=== PATIENT | female | born 1970 | race Caucasian/White ===

== ENCOUNTER 2023-09-28 18:00 | Emergency (ER) | payer MEDICAID, SELFPAY ==
[2023-09-28 18:01] VITALS: BP 140/104; PULSE 59; RESP 18; TEMP 36.9; O2SAT 98; BMI 32.3
--- NOTE | 2023-09-28 18:17 | EXP.UTC ---
Discharge Plan Disposition Patient Disposition: Home, Self-Care Condition: Good Prescriptions Prescriptions: New azithromycin [Zithromax] 250 mg tablet 250 mg PO UD DOSE PK Qty: 6 0RF Rx Instructions: Take two (2) tablets today, then one (1) tablet days #2 thru #5 methylprednisolone 4 mg Tablets,Dose Pack 4 mg PO DIRECTED Qty: 21 0RF ondansetron 4 mg Tablet,Disintegrating 4 mg PO Q8H PRN (Reason: Nausea) Qty: 12 0RF Referrals Follow up/Referrals: Josh Conley MD [Primary Care Provider] - See instructions Activity Restrictions/Add. Instructions Additional Instructions/Restrictions: Drink plenty of fluids. Take tylenol or ibuprofen for pain or fever. Take the medications as directed. Follow up with your regular doctor. GO TO THE ER FOR ANY WORSENING SYMPTOMS Clinical Impressions Clinical Impression: Acute viral syndrome Stand Alone Forms Stand Alone Forms: Work/School Release Instructions Patient Instructions: DI for Viral Syndrome Discharge ED Provider: Donny Graf [facility] General Stated complaint: diarrhea, back pain, h/a Time Seen by Provider: 09/28/23 18:17 History of Present Illness Provider Complaint: She states that for the past 1 week she has had malaise, fatigue, body aches, and chills. She was checked by her pcp for strep, covid-19, and influenza. She states all 3 were negative. Related Data Previous Rx's Medication Instructions Recorded azithromycin 250 mg tablet 250 mg PO UD DOSE PK #6 tabs 09/28/23 (Zithromax) methylprednisolone 4 mg tablets in 4 mg PO DIRECTED #21 tabs 09/28/23 a dose pack ondansetron 4 mg disintegrating 4 mg PO Q8H PRN Nausea #12 tabs 09/28/23 tablet Allergies Allergy/AdvReac Type Severity Reaction Status Date / Time aspirin Allergy Severe Hives Verified 10/25/22 14:51 [facility] Disclaimer: The information contained in this section may have been updated after the patient was seen, as this information can be updated by other users. Social History Smoking Status: Never smoker alcohol intake: never current occupational status: employed Travel in the last 8 weeks: None ROS Obtained: Yes All systems reviewed & no additional complaints except as documented Constitutional Constitutional: Reports chills and Reports fever(s) Eyes Eyes: Denies eye discharge ENT Ears, Nose, Mouth, and Throat: Reports as per HPI Cardiovascular Cardiovascular: Denies chest pain Respiratory Respiratory: Denies chest congestion and Reports cough Gastrointestinal Gastrointestingal: Reports nausea; Denies abdominal pain, constipation, cramping, diarrhea or vomiting Musculoskeletal Musculoskeletal: Denies arthralgias Integumentary/Breasts Skin/Breast: Denies rash Neurologic Neurologic: Denies paresthesias Physical Exam General General appearance: alert and in no apparent distress Head Head exam: atraumatic, normocephalic and normal inspection Eye Eye exam: Present normal appearance, PERRL and EOMI ENT ENT exam: Present normal exam, normal oropharynx, mucous membranes moist, TM's normal bilaterally and normal external ear exam Neck Neck exam: Present normal inspection, full ROM and trachea midline; Absent meningismus or lymphadenopathy Chest Chest inspection: Present normal inspection and symmetric chest wall rise; Absent tenderness Respiratory Respiratory exam: Present normal lung sounds bilaterally; Absent respiratory distress Cardiovascular Cardiovascular exam: Present regular rate and normal rhythm; Absent JVD Abdominal Exam Abdominal exam: Present soft and normal bowel sounds; Absent distention, tenderness or guarding Extremities Exam Extremities exam: Present normal inspection, full ROM and normal capillary refill; Absent calf tenderness Back Exam Back exam: Present normal inspection; Absent tenderness Neurological Exam Neurological exam: Present alert and oriented X3 Psychiatric Psychiatric exam: Present norm
[2023-09-28 18:37] VITALS: BP 143/78; PULSE 59; RESP 18; TEMP 36.9; O2SAT 98
[2023-09-28 19:25] LABS: Adenovirus,PCR Not Detected (NotDetected); Coronavirus 19, PCR Not Detected (NotDetected); Coronavirus 229E Not Detected (NotDetected); Coronavirus NL63 Not Detected (NotDetected); Coronavirus OC43 Not Detected (NotDetected); Coronovirus HKU1,PCR Not Detected (NotDetected); Human Metapneumovirus Not Detected (NotDetected); Influenza A, PCR Not Detected (NotDetected); Influenza AH1, 2009 Not Detected (NotDetected); Influenza AH1, PCR Not Detected (NotDetected); Influenza AH3,PCR Not Detected (NotDetected); Influenza B, PCR Not Detected (NotDetected); Parainfluenza 1, PCR Not Detected (NotDetected); Parainfluenza 2, PCR Not Detected (NotDetected); Parainfluenza 3, PCR Not Detected (NotDetected); Parainfluenza 4, PCR Not Detected (NotDetected); Respiratory Syncytial Virus Not Detected (NotDetected); Rhinovirus/Enterovirus Not Detected (NotDetected)
== END 2023-09-28 18:44 | disposition home or self-care (01) ==
PROVIDERS: Emergency Provider Nurse Practitioner Family; PCP Family Medicine
DX: R19.7 Diarrhea, unspecified (principal); R51.9 Headache, unspecified; M54.9 Dorsalgia, unspecified; R53.81 Other malaise
CPT/HCPCS: 87632; 87635; 99212; 99214; G0463

== ENCOUNTER 2024-03-16 18:00 | Outpatient (CLI) | payer MEDICAID, SELFPAY ==
[2024-03-16 18:19] LABS: Basophils # 0.1 K/mm3 (0-0.2); Basophils % 0.9 % (0.1-2.0); Eosinophils # 0.1 K/mm3 (0.0-0.4); Eosinophils % 1.6 % (0.1-12.0); Hematocrit 41.1 % (37.0-47.0); Hemoglobin 13.1 g/dL (12.2-16.2); Lymphocytes # 2.5 K/mm3 (0.7-4.5); Lymphocytes % 43.7 % (10-50); Mean Corpuscular HGB Conc 31.9 g/dL (31.8-35.4); Mean Corpuscular Hemoglobin 31.7 pg (27.0-31.2); Mean Corpuscular Volume 99.3 fl (81-99); Mean Platelet Volume 8.4 fl (7.4-10.4); Monocytes # 0.3 K/mm3 (0.1-1.0); Monocytes % 5.8 % (1.7-9.3); Neutrophils # 2.7 K/mm3 (1.8-7.8); Neutrophils % 47.9 % (37.0-80.0); Platelet Count 299 K/mm3 (142-424); Red Blood Count 4.14 M/mm3 (4.20-5.40); Red Cell Distribution Width 13.7 % (11.5-17.5); White Blood Count 5.7 K/mm3 (4.8-10.8)
[2024-03-16 19:12] LABS: Alanine Aminotransferase 20 U/L (12-78); Albumin Level 4.2 g/dl (3.5-5.0); Albumin/Globulin Ratio 1.6 (1.1-1.8); Alkaline Phosphatase 112 U/L (38-126); Anion Gap 13.4 mEq/L (5-15); Aspartate Amino Transferase 38 U/L (14-36); Bilirubin,Total 0.7 mg/dl (0.2-1.3); Blood Urea Nitrogen 19 mg/dl (7-17); Calcium 9.6 mg/dl (8.4-10.2); Carbon Dioxide 28 mmol/L (22.0-30.0); Chloride 102 mmol/L (98-107); Estimated Glomerular Filt Rate 74 ml/min (>60); GFR (African American) 90 ML/MIN (>60); Globulin 2.6 g/dL (1.3-3.2); Glucose 100 mg/dl (74-100); Potassium 4.4 mmoL/L (3.5-5.1); Sodium 139 mmol/L (136-145); Total Protein,Serum 6.8 g/dl (6.3-8.2)
[2024-03-16 19:18] LABS: Hemoglobin A1C 5.4 % (4.0-6.0)
[2024-03-16 19:40] LABS: Thyroid Stimulating Hormone 0.64 uIU/mL (0.465-4.68)
== END 2024-03-16 23:59 | disposition home or self-care (01) ==
LOC: LAB.DROPOF 03-17 08:37
PROVIDERS: PCP Family Medicine; Visit Provider Family Medicine
DX: R07.9 Chest pain, unspecified (principal); I10 Essential (primary) hypertension; E66.9 Obesity, unspecified; Z68.35 Body mass index [BMI] 35.0-35.9, adult; F41.9 Anxiety disorder, unspecified
CPT/HCPCS: 80050; 80053; 83036; 84443; 85025

== ENCOUNTER 2024-03-25 11:15 | Outpatient (CLI) | payer MEDICAID, SELFPAY ==
--- NOTE | 2024-03-25 11:17 | XR_ITS ---
FINAL REPORT CLINICAL HISTORY: Right foot pain FINDINGS: RIGHT FOOT 3 views of the right foot were obtained. There is no acute fracture or dislocation. A small plantar spur is noted. Visualized joint spaces are normally aligned. Soft tissues are unremarkable. IMPRESSION: No acute bony abnormality. Reviewed, Interpreted and Dictated by Orlin Guerin MD Transcribed by Adrienne Ponce Authenticated and [facility]
--- NOTE | 2024-03-25 11:17 | XR_ITS ---
FINAL REPORT CLINICAL HISTORY: Left foot pain FINDINGS: LEFT FOOT Three views of the left foot demonstrate no acute fracture or dislocation. There is an orthopedic screw in the distal first metatarsal. There is a healed fracture deformity of the first metatarsal probably related to prior bunion surgery. There are mild to moderate degenerative changes of the first metatarsophalangeal joint. A small plantar calcaneal spur is noted. The soft tissues are unremarkable. IMPRESSION: Postoperative and degenerative changes with no acute bony abnormality. Reviewed, Interpreted and Dictated by Orlin Guerin MD Transcribed by Adrienne Ponce Authenticated and [facility]
[2024-03-25 11:47] LABS: Uric Acid 4.7 mg/dl (2.5-6.2)
[2024-03-25 11:52] LABS: C-Reactive Protein 1.7 mg/L (0-4)
[2024-03-25 12:00] LABS: Hemoglobin A1C 5.4 % (4.0-6.0)
[2024-03-25 12:18] LABS: Thyroid Stimulating Hormone 0.86 uIU/mL (0.465-4.68)
[2024-03-25 12:20] LABS: Erythrocyte Sedimentation Rate 14 mm/hr (0-30)
[2024-03-26 17:26] LABS: RA Latex Turbid. 11.2 IU/mL (<14.0)
[2024-03-27 16:34] LABS: Antinuclear Antibodies, IFA Negative (.)
== END 2024-03-25 23:59 | disposition home or self-care (01) ==
LOC: LAB 11:17
PROVIDERS: PCP Family Medicine; Visit Provider Family Medicine
DX: M79.671 Pain in right foot (principal); M79.672 Pain in left foot; M25.559 Pain in unspecified hip; R51.9 Headache, unspecified
CPT/HCPCS: 36415; 73630; 83036; 84443; 84550; 85651; 86038; 86140; 86431

== ENCOUNTER 2024-04-12 15:10 | Outpatient (CLI) | payer MEDICAID, SELFPAY ==
--- NOTE | 2024-04-12 15:13 | XR_ITS ---
FINAL REPORT CLINICAL HISTORY: Bilat hip pain FINDINGS: RIGHT HIP Two views of the right hip demonstrate no acute fracture or dislocation. The joint spaces appear normal. The visualized bony structures are well aligned. No soft tissue abnormality is seen. IMPRESSION: No acute bony abnormality. Reviewed, Interpreted and Dictated by Tanvir Andrade III, MD Transcribed by Mer Joseph Authenticated and [facility]
--- NOTE | 2024-04-12 15:13 | XR_ITS ---
FINAL REPORT CLINICAL HISTORY: Bilat hip pain FINDINGS: LEFT HIP 2 views of the left hip are obtained. There is no acute fracture or dislocation. Visualized joint spaces are normally aligned. There is no acute soft tissue abnormality. IMPRESSION: No acute bony abnormality. Reviewed, Interpreted and Dictated by Tanvir Andrade III, MD Transcribed by Mer Joseph Authenticated and [facility]
== END 2024-04-12 23:59 | disposition home or self-care (01) ==
LOC: RAD 15:12
PROVIDERS: PCP Family Medicine; Visit Provider Nurse Practitioner Family
DX: M25.551 Pain in right hip (principal); M25.552 Pain in left hip
CPT/HCPCS: 73502

== ENCOUNTER 2024-08-29 13:36 | Outpatient (CLI) | payer MEDICAID, SELFPAY ==
--- NOTE | 2024-08-29 13:42 | XR_ITS ---
PROCEDURE INFORMATION: Exam: XR Right Tibia and Fibula Exam date and time: 08/29/2024 2:07 PM Age: 54 years old Clinical indication: Condition or disease; Other: Follow up FX; Additional info: Right tib fib FX TECHNIQUE: Imaging protocol: Radiologic exam of the right tibia and fibula. Views: 2 views. COMPARISON: CR XR FOOT WT BEARING RT 3V 03/25/2024 12:23 PM FINDINGS: Bones/joints: Avulsion fracture off the distal aspect of the fibula is unhealed. Soft tissues: Normal. IMPRESSION: Avulsion fracture off the distal aspect of the fibula is unhealed.
== END 2024-08-29 23:59 | disposition home or self-care (01) ==
PROVIDERS: PCP Family Medicine; Visit Provider Nurse Practitioner
DX: M79.604 Pain in right leg (principal); S82.831A Other fracture of upper and lower end of right fibula, initial encounter for closed fracture
CPT/HCPCS: 73590; 93971

== ENCOUNTER 2024-09-19 13:09 | Outpatient (CLI) | payer MEDICAID, SELFPAY ==
--- NOTE | 2024-09-19 13:15 | XR_ITS ---
FINAL REPORT CLINICAL HISTORY: F/U RT ANKLE FX COMPARISON: None FINDINGS: RIGHT ANKLE 3 views of the right ankle were obtained. There is a subacute fracture inferior to the lateral malleolus without significant callus formation. Mild degenerative change is noted. There is lateral soft tissue swelling. Calcaneal spurs are present. IMPRESSION: Subacute fracture inferior to the lateral malleolus without significant callus formation. Reviewed, Interpreted and Dictated by Tanvir Andrade III, MD Transcribed by Katherine Barber Authenticated and [facility]
== END 2024-09-19 23:59 | disposition home or self-care (01) ==
PROVIDERS: PCP Family Medicine; Visit Provider Orthopaedic Surgery
DX: S82.831A Other fracture of upper and lower end of right fibula, initial encounter for closed fracture (principal)
CPT/HCPCS: 73610

== ENCOUNTER 2024-11-13 11:14 | Outpatient (CLI) | payer BC, MEDICAID, SELFPAY ==
--- NOTE | 2024-11-13 11:22 | XR_ITS ---
FINAL REPORT CLINICAL HISTORY: right ankle fx COMPARISON: 09/19/2024 FINDINGS: RIGHT ANKLE 3 views of the right ankle were obtained. There is an 8 mm well corticated ossific density inferior to the lateral malleolus. The mortise is intact. A small plantar spur is noted. Visualized joint spaces are normally aligned. Soft tissues are unremarkable. IMPRESSION: 8 mm density inferior to the lateral malleolus. Reviewed, Interpreted and Dictated by Orlin Guerin MD Transcribed by Katherine Barber Authenticated and [facility]
== END 2024-11-13 23:59 | disposition home or self-care (01) ==
LOC: RAD 11:18
PROVIDERS: PCP Family Medicine; Visit Provider Physician Assistant
DX: M25.571 Pain in right ankle and joints of right foot (principal); S82.831A Other fracture of upper and lower end of right fibula, initial encounter for closed fracture
CPT/HCPCS: 73610

== ENCOUNTER 2025-01-09 11:09 | Outpatient (CLI) | payer MEDICAID, SELFPAY ==
[2025-01-09 21:32] LABS: Basophils # 0.1 K/mm3 (0-0.2); Basophils % 0.7 % (0.1-2.0); Eosinophils # 0.1 K/mm3 (0.0-0.4); Eosinophils % 1.2 % (0.1-12.0); Hematocrit 41.3 % (37.0-47.0); Hemoglobin 13.2 g/dL (12.2-16.2); Lymphocytes # 2.5 K/mm3 (0.7-4.5); Lymphocytes % 32.4 % (10-50); Mean Corpuscular Hemoglobin 30.7 pg (27.0-31.2); Mean Platelet Volume 10.8 fl (7.4-10.4); Monocytes # 0.7 K/mm3 (0.1-1.0); Monocytes % 8.7 % (1.7-9.3); Neutrophils # 4.4 K/mm3 (1.8-7.8); Neutrophils % 56.6 % (37.0-80.0); Platelet Count 315 K/mm3 (142-424); Red Cell Distribution Width 13.8 % (11.5-17.5); White Blood Count 7.7 K/mm3 (4.8-10.8)
[2025-01-09 22:21] LABS: Creatinine,Urine Random 100 mg/dL (Not Estab.); Microalbumin < 6.000 mg/L (0-16.7)
[2025-01-09 23:00] LABS: Alanine Aminotransferase 23 U/L (12-78); Albumin Level 4.2 g/dl (3.5-5.0); Albumin/Globulin Ratio 1.8 (1.1-1.8); Alkaline Phosphatase 106 U/L (38-126); Aspartate Amino Transferase 44 U/L (14-36); Bilirubin,Total 1.4 mg/dl (0.2-1.3); Blood Urea Nitrogen 17 mg/dl (7-17); Calcium 9.4 mg/dl (8.4-10.2); Carbon Dioxide 28 mmol/L (22.0-30.0); Chloride 105 mmol/L (98-107); Cholesterol 216 mg/dl (140-200); Estimated Glomerular Filt Rate 74 ml/min (>60); GFR (African American) 90 ML/MIN (>60); Globulin 2.4 g/dL (1.3-3.2); Glucose 89 mg/dl (74-100); Sodium 137 mmol/L (136-145); Total Protein,Serum 6.6 g/dl (6.3-8.2); Triglycerides 110 mg/dl (30-150); VLDL Cholesterol 22 mg/dL (0-40)
[2025-01-09 23:05] LABS: Hemoglobin A1C 5.6 % (4.0-6.0)
[2025-01-09 23:22] LABS: 25-OH Vitamin D, Total 18.1 ng/mL (30-100)
[2025-01-09 23:30] LABS: Chol/HDL Ratio 1.9 (1-3.5); HDL Cholesterol 113 mg/dl (40-60)
[2025-01-10 00:01] LABS: Vitamin B12 < 159 pg/mL (239-931)
== END 2025-01-09 23:59 | disposition home or self-care (01) ==
LOC: LAB.DROPOF 01-10 12:35
PROVIDERS: PCP Nurse Practitioner; Visit Provider Nurse Practitioner
DX: I10 Essential (primary) hypertension (principal); E66.01 Morbid (severe) obesity due to excess calories; Z68.35 Body mass index [BMI] 35.0-35.9, adult; G47.33 Obstructive sleep apnea (adult) (pediatric)
CPT/HCPCS: 80053; 80061; 82043; 82306; 82570; 82607; 83036; 84443; 85025

== ENCOUNTER 2025-01-28 11:02 | Outpatient (POV) | payer MEDICAID, SELFPAY ==
--- NOTE | 2025-01-28 11:10 | EXP.PAIN.OV ---
HPI Data of Consult Patient: new to practice Consult date: 01/28/25 Requesting Physician: Patt Torres APRN Primary Care Provider: Josh Conley MD Consult Narrative History of present illness: Ms. Neri is a 54 year old female who presents today as a new patient. She is a referral from primary care in [place]. Today she rates her pain a 10 out of 10. Patient states she has pain all across her low back primarily going into her right hip. Patient does states she also has pain into her bilateral feet. Patient states that this really all started around 2012 unrelated to any specific injury or trauma. 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 Patient does describe it as a sharp sensation that is worse with increased activity or certain movements. She states that certain activities like twisting, lifting walking or prolonged sitting really aggravate her symptoms. Patient does frequently have to change positions due to the worsening pain. She states she cannot do activities of daily living such as cooking and cleaning. Patient states she feels like it locks in position and that she has trouble moving. She also makes mention that repetitive motion really seems to bother her. Patient has been seeing [facility] there in [place] and did get injections from podiatry Dr. Jacobson in her feet that did help. Patient states that she has done an epidural with [facility] but did not notice any improvement. Patient has tried physical therapy with no additional changes. She has also tried oral medications, heat and ice and topicals with no changes. Patient is interested in any help available to provide.Patient is prescribed Ambien from her PCP. Her Rivera has been reviewed and is appropriate. CC: Patt Torres APRN [facility] Disclaimer: The information contained in this section may have been updated after the patient was seen, as this information can be updated by other users. Medical History Closed fracture of right distal fibula Pain of right anterior lower extremity Afib Hypertension Bipolar 1 disorder Depression Anxiety PTSD (post-traumatic stress disorder) Surgical History Hx of repair of left rotator cuff History of bunionectomy Hx of hernia repair Hx of carpal tunnel repair Hx of total hysterectomy Hx of cholecystectomy Hx of appendectomy H/O gastric bypass Family History Other COPD (chronic obstructive pulmonary disease) Cancer Coronary artery disease Diabetes FHx: mental illness Heart attack Hypertension Thyroid disorder Social History (Updated 01/28/25 @ 11:32 by Annie Oconnor RN) Smoking Status: Never smoker alcohol intake: current alcohol intake frequency: holidays/special occasions only current occupational status: unemployed Travel in the last 8 weeks: None Review of Systems Review of Systems Review of systems:: pertinent systems reviewed and negative unless documented below Review of systems (narrative): Review of Systems: General: No recent weight changes, no fever, no sleep disturbances Respiratory: No cough, no shortness of air, no recurring pulmonary infections Cardiovascular/peripheral vascular: No chest pain, no palpitations, no edema, no shortness of breath Gastrointestinal: No new onset incontinence, normal bowel movements reported Genitourinary: No new onset incontinence Musculoskeletal:Low back pain, right hip pain, bilateral feet pain Psychiatric: [Normal mood/affect] Neurological: [Denies weakness in extremities], [denies balance issues] Meds Home Medications and Allergies Home Medications ?Medication ?Instructions ?Recorded ?Confirmed ?Type hydroxyzine HCl 50 mg tablet 50 mg PO HS PRN sleep #30 tabs 01/23/24 01/28/25 Rx cyclobenzaprine 10 mg tablet 10 mg PO Q12H PRN muscle spasm #60 02/27/24 01/28/25 Rx tabs aspirin 325 mg tablet,delayed 325 mg PO DAILY #30 tabs 07/16/24 01/28/25 Rx release bupropion HCl 150 mg tablet,12 hr 150 mg PO BID #180 ea 09/27/24 01/28/25 Rx sustained-release (Wellbutrin SR) fluticasone propionate 50 1 spray intranasal DAILY #16 grams 09/27/24 01/28/25 Rx mcg/actuation nasal spray,suspension (Flonase Allergy Relief) zolpidem 5 mg tablet 5 mg PO HS sleep #30 tabs 09/27/24 01/28/25 Rx acyclovir 400 mg tablet 400 mg PO BID #60 tabs 11/06/24 01/28/25 Rx cariprazine 1.5 mg capsule 1.5 mg PO DAILY #90 caps 01/09/25 01/28/25 Rx (Vraylar) topiramate 25 mg tablet 25 mg PO BID #60 tabs 01/09/25 01/28/25 Rx diltiazem HCl 120 mg capsule,24 120 mg PO DAILY #30 caps 01/23/25 01/28/25 Rx hr,extended release (Tiazac) metoprolol succinate 25 mg 25 mg PO DAILY HTN #30 tabs 01/23/25 01/28/25 Rx tablet,extended release 24 hr acyclovir 400 mg tablet 400 mg PO BID #60 tabs 01/25/25 01/28/25 Rx New Prescriptions to Start Prescriptions: Allergies Allergy/AdvReac Type Severity Reaction Status Date / Time NSAIDS (Non-Steroidal AdvReac Unknown Verified 01/09/25 09:42 Anti-Inflamma Objective Narrative: Physical Exam: General: Alert and oriented x3, no acute distress, pleasant and cooperative Lungs: Respirations even and unlabored, symmetrical chest expansion Eyes: PERRL Musculoskeletal: Flexion and extension of lumbar [spine] somewhat guarded secondary to pain, [antalgic gait noted] point tenderness along bilateral SIs with positive bilateral Maya's, Sima's, Gaenslen's, compression and distraction exam Neurological: Speech clear, no gross sensory deficit Assessment and Plan *Assessment and plan (1) Bilateral sacroiliitis: Status: Acute Category: Medical Code(s): M46.1 - Sacroiliitis, not elsewhere classified (2) Low back pain: Status: Acute Category: Medical Code(s): M54.50 - Low back pain, unspecified (3) Hip pain: Status: Acute Category: Medical Code(s): M25.559 - Pain in unspecified hip Plan Patient is experiencing worsening pain along the low back and bilateral hips. They did have limited range of motion of the lumbar spine along with point tenderness along bilateral SI joints and a positive bilateral Maya's, Sima's, Gaenslen's, compression and distraction exam. I did discuss with the patient that I do believe they would benefit from bilateral SI injections. Risk and benefits were discussed with the patient and they would like to proceed forward with this option. Patient has tried and failed conservative therapy including continued at home stretching exercise for longer than 12 weeks. Patient has had this pain present for longer than 3 months and has tried physical therapy and some injection therapy. Patient has not had any SI injections. I will also order the patient a compounded cream and send in a 2-week dose of tizanidine 2 mg twice daily as needed. Patient will be scheduled for bilateral SI injections under fluoroscopy. Patient has been instructed to contact the clinic with any concerns before the next appointment. Dr. Parekh has reviewed this note and agrees with this plan of care. This note was dictated using voice recognition software and make contain errors or omissions. All injections are used with Lidocaine or Bupivacaine and Depo Medrol.
[2025-01-28 11:31] VITALS: BP 139/90; PULSE 57; RESP 18; O2SAT 97; BMI 37.1
== END 2025-01-28 23:59 | disposition home or self-care (01) ==
PROVIDERS: PCP Family Medicine; Visit Provider Nurse Practitioner Family
DX: M46.1 Sacroiliitis, not elsewhere classified (principal); M54.50 Low back pain, unspecified; M25.551 Pain in right hip
CPT/HCPCS: 99202; G0463

== ENCOUNTER 2025-03-25 13:26 | Outpatient (CLI) | payer MEDICAID, SELFPAY ==
--- NOTE | 2025-03-25 | CA_ITS ---
APPROVED REPORT Exam: Exercise Treadmill Technologist: Kristina Montero Ht: 5 ft 6 in Wt: 231 lbs BSA: 2.13 m2 Medical History Medications: acyclovir, albuterol, aspirin, bacoflen, vraylar, vitamin D3, B-12, tiazac, topiramate, flonase, hydroxyzine hci, hyoscyamine sulfate, metoprolol succinate ER, zofran, tamsulosin, zolpidem Stress Test Details Test: Exercise stress testing was performed using a Russ protocol. HR Resting HR: 55 bpm Max Heart Rate (APMHR): 164 bpm Max HR Achieved: 120 bpm Target HR (85% APMHR): 139 bpm % of APMHR: 73 Recovery HR: 93 bpm HR response to stress: Blunted HR response to stress BP Resting BP: 135.0/88.0 mmHg Max BP: 150.0/90.0 mmHg Recovery BP: 135.0/90.0 mmHg BP response to stress: Normal blood pressure response to stress. ECG Resting ECG: NSR, ?old septal MD, PVC, NSSTW Abnormalities Stress ECG: No evidence of ischemia at the degree of HR achieved. Clinical Highest Stage Achieved: II Stress ECG Conclusion Symptoms: No chest pain. (+)SOA, hip pain Arrhythmias/Ectopy: PVC's ST-T Changes: No evidence of ischemia at the degree of HR achieved. Conclusion: This is a nondiagnostic stress test in the setting of inability achieve target HR. No evidence of ischemia at the degree of HR achieved. Evaluation with alternative modalities suggested, such as CCTA or pharmacological nuclear stress testing, if clinically feasible and indicated. Electronically signed by : Claudia Tsang MD 03/27/2025 13:19:00
--- NOTE | 2025-03-25 13:34 | XR_ITS ---
FINAL REPORT CLINICAL HISTORY: chest pain, SOBOE FINDINGS: 2 views of the chest were obtained . The heart is normal in size. The mediastinum is within normal limits. The lungs are clear. There is no pneumothorax. Osseous structures are unremarkable. IMPRESSION: No acute cardiopulmonary process. Reviewed, Interpreted and Dictated by Orlin Guerin MD Transcribed by Mer Joseph Authenticated and [facility]
--- NOTE | 2025-03-25 13:34 | XR_ITS ---
FINAL REPORT CLINICAL HISTORY: right flank pain, history kidney stone FINDINGS: SINGLE VIEW ABDOMEN A single view of the abdomen was obtained. There is a nonobstructive bowel gas pattern. There are no abnormally dilated loops of small bowel. No abnormal calcifications are identified. Surgical clips are seen in the right lower quadrant. Moderate stool is noted throughout the colon. IMPRESSION: Nonobstructive bowel gas pattern. Moderate stool. Reviewed, Interpreted and Dictated by Orlin Guerin MD Transcribed by Mer Joseph Authenticated and [facility]
--- NOTE | 2025-03-25 13:34 | XR_ITS ---
FINAL REPORT CLINICAL HISTORY: Left heel pain COMPARISON: 03/25/2024 FINDINGS: LEFT FOOT Three views show no evidence of acute displaced fracture or dislocation of the visualized bony architecture. The joint spaces appear normal. There is mild calcaneal spurring. There are postoperative changes from bunionectomy and osteotomy. IMPRESSION: No acute findings or significant change from prior exam. Reviewed, Interpreted and Dictated by Irving Zhu MD Transcribed by Randa Agee Authenticated and [facility]
[2025-03-25 15:10] LABS: Basophils # 0.1 K/mm3 (0-0.2); Basophils % 0.8 % (0.1-2.0); Eosinophils # 0.1 Kmm3 (0.0-0.4); Eosinophils % 1.8 % (0.1-12.0); Hematocrit 42.6 % (37.0-47.0); Hemoglobin 13.5 g/dL (12.2-16.2); Immature Granulocytes # 0.03 10^3uL; Immature Granulocytes % 0.5 %; Lymphocytes # 2.4 K/mm3 (0.7-4.5); Mean Corpuscular HGB Conc 31.7 g/dL (31.8-35.4); Mean Corpuscular Hemoglobin 29.3 pg (27.0-31.2); Mean Corpuscular Volume 92.4 fl (81-99); Mean Platelet Volume 10.7 fl (7.4-10.4); Monocytes # 0.5 K/mm3 (0.1-1.0); Monocytes % 7.3 % (1.7-9.3); Neutrophils # 3.5 K/mm3 (1.8-7.8); Neutrophils % 53.6 % (37.0-80.0); Nucleated Red Blood Cells # 0 10^3/uL; Nucleated Red Blood Cells % 0 %; Platelet Count 328 K/mm3 (142-424); Red Blood Count 4.61 M/mm3 (4.20-5.40); Red Cell Distribution Width 13.4 % (11.5-17.5); Red Cell Distribution Width-SD 45.8 fL; White Blood Count 6.6 K/mm3 (4.8-10.8)
[2025-03-25 15:57] LABS: Albumin Level 4.5 g/dl (3.5-5.0); Chloride 105 mmol/L (98-107); Sodium 138 mmol/L (136-145)
[2025-03-25 15:58] LABS: Potassium 4.4 mmoL/L (3.5-5.1)
[2025-03-25 16:00] LABS: Alanine Aminotransferase 20 U/L (12-78); Albumin/Globulin Ratio 1.8 (1.1-1.8); Alkaline Phosphatase 125 U/L (38-126); Anion Gap 11.4 mEq/L (5-15); Aspartate Amino Transferase 46 U/L (14-36); Bilirubin,Total 0.8 mg/dl (0.2-1.3); Blood Urea Nitrogen 15 mg/dl (7-17); Carbon Dioxide 26 mmol/L (22.0-30.0); Estimated Glomerular Filt Rate 65 ml/min (>60); GFR (African American) 78 ML/MIN (>60); Globulin 2.5 g/dL (1.3-3.2)
[2025-03-25 16:01] LABS: Calcium 9.7 mg/dl (8.4-10.2); Glucose 92 mg/dl (74-100)
[2025-03-25 16:13] LABS: Troponin I < 0.01 ng/ml (0.00-0.034)
== END 2025-03-25 23:59 | disposition home or self-care (01) ==
LOC: RT 13:31
PROVIDERS: PCP Nurse Practitioner; Visit Provider Nurse Practitioner
DX: R93.3 Abnormal findings on diagnostic imaging of other parts of digestive tract (principal); R07.9 Chest pain, unspecified; R06.02 Shortness of breath; R10.9 Unspecified abdominal pain; Z87.442 Personal history of urinary calculi; M79.672 Pain in left foot
CPT/HCPCS: 36415; 71046; 73630; 74018; 80053; 84484; 85025; 93017; 93018

== ENCOUNTER 2025-04-09 10:29 | Outpatient (POV) | payer MEDICAID, SELFPAY ==
--- NOTE | 2025-04-09 12:06 | EXP.PAIN.SOA ---
[facility] Disclaimer: The information contained in this section may have been updated after the patient was seen, as this information can be updated by other users. Medical History (Updated 04/04/25 @ 13:38 by Jacoby Estevez RN) Dizziness Abnormal ECG Edema Fatigue Equivocal stress test Chest pain Snoring SOBOE (shortness of breath on exertion) History of kidney stones Closed fracture of right distal fibula Pain of right anterior lower extremity Afib Hypertension Bipolar 1 disorder Depression Anxiety PTSD (post-traumatic stress disorder) Surgical History Hx of repair of left rotator cuff History of bunionectomy Hx of hernia repair Hx of carpal tunnel repair Hx of total hysterectomy Hx of cholecystectomy Hx of appendectomy H/O gastric bypass Family History Other COPD (chronic obstructive pulmonary disease) Cancer Coronary artery disease Diabetes FHx: mental illness Heart attack Hypertension Thyroid disorder Social History Smoking Status: Never smoker alcohol intake: current alcohol intake frequency: holidays/special occasions only current occupational status: unemployed Travel in the last 8 weeks?: None PM Subjective & Objective Subjective Subjective:: Patient is a pleasant 54-year-old female who presents today for worsening pain. She rates her pain today an 8 out of 10. Patient states she still has severe pain across her low back and into her bilateral hips that does seem to go into her groins. She denies any new trauma or injury. Patient states the pain is constant and is interfering with her ability perform activities of daily living such as cooking and cleaning. Patient is interested in injection therapy. Patient also makes mention that her previous muscle relaxers of baclofen just does not seem to be working. Her Rivera has been reviewed and is appropriate. Review of Systems: General: No recent weight changes, no fever, no sleep disturbances Respiratory: No cough, no shortness of air, no recurring pulmonary infections Cardiovascular/peripheral vascular: No chest pain, no palpitations, no edema, no shortness of breath Gastrointestinal: No new onset incontinence, normal bowel movements reported Genitourinary: No new onset incontinence Musculoskeletal: Low back pain, bilateral hip pain Psychiatric: [Normal mood/affect] Neurological: [Denies weakness in extremities], [denies balance issues] Pain at rest (0-10 scale): 8 Objective Objective:: Physical Exam: General: Alert and oriented x3, no acute distress, pleasant and cooperative Lungs: Respirations even and unlabored, symmetrical chest expansion Eyes: PERRL Musculoskeletal: Flexion and extension of lumbar [spine] somewhat guarded secondary to pain, [antalgic gait noted] point tenderness along bilateral SIs and extreme point tenderness along her bilateral greater trochanteric bursa with positive bilateral Maya's, Sima's, Gaenslen's, compression and distraction exam Neurological: Speech clear, no gross sensory deficit Has patient had previous pain injection?: No Conservative treatment options previously tried: Home exercise plan Length of treatment: Longer than 12 weeks Meds Home Medications and Allergies Home Medications ?Medication ?Instructions ?Recorded ?Confirmed ?Type metoprolol succinate 25 mg 25 mg PO DAILY HTN #30 tabs 01/23/25 04/04/25 Rx tablet,extended release 24 hr cariprazine 1.5 mg capsule 1.5 mg PO DAILY #90 caps 01/28/25 04/04/25 Rx (Vraylar) hydroxyzine HCl 50 mg tablet 50 mg PO HS PRN sleep #30 tabs 02/05/25 04/04/25 Rx ondansetron HCl 4 mg tablet 4 mg PO Q8H PRN nausea and 02/26/25 04/04/25 Rx vomiting #20 tabs zolpidem 5 mg tablet 5 mg PO HS sleep #30 tabs 03/19/25 04/04/25 Rx baclofen 5 mg tablet 5 mg PO TID #90 tabs 03/20/25 04/04/25 Rx hyoscyamine sulfate 0.125 mg tablet 0.125 mg PO QID PRN diarrhea or 03/25/25 04/04/25 Rx abdominal cramping #30 tabs acyclovir 400 mg tablet 400 mg PO BID #60 tabs 04/03/25 04/04/25 Rx albuterol sulfate 90 mcg/actuation 2 puff inhalation Q4-6H PRN 04/03/25 04/04/25 Rx aerosol inhaler shortness of breath or wheezing #8.5 grams cholecalciferol (vitamin D3) 125 125 mcg PO DAILY #30 tabs 04/03/25 04/04/25 Rx mcg (5,000 unit) tablet cyanocobalamin (vitamin B-12) 1,000 mcg PO DAILY #30 tabs 04/03/25 04/04/25 Rx 1,000 mcg tablet New Prescriptions to Start Prescriptions: Allergies Allergy/AdvReac Type Severity Reaction Status Date / Time NSAIDS (Non-Steroidal AdvReac Unknown Verified 04/04/25 13:08 Anti-Inflamma Assessment and Plan *Assessment and plan (1) Greater trochanteric bursitis of both hips: Status: Acute Category: Medical Code(s): M70.61 - Trochanteric bursitis, right hip; M70.62 - Trochanteric bursitis, left hip (2) Bilateral sacroiliitis: Status: Acute Category: Medical Code(s): M46.1 - Sacroiliitis, not elsewhere classified Plan Patient is experiencing continued pain in her low back and bilateral hips. Patient has had this chronic issue going on for longer than 1 year. Patient was previously seen in our office in January and was recommended for bilateral SI injections and does still seem appropriate for these however she did have more extreme point tenderness over her bilateral bursa's during today's visit. I have discussed with her that I do recommend starting with these injections as that does appear to be the most painful area currently. Risk and benefits were discussed with patient and she would like to proceed forward with this plan of care. Patient has continued conservative measures including oral medication, heat and ice, topicals, physical therapy and continued at home stretching exercise for longer than 12 weeks that was physician guided. Patient will be scheduled for bilateral greater trochanteric bursa injections under fluoroscopy. I will also send in a 2-week dose of methocarbamol 500 mg 3 times daily as needed. Patient has been instructed to contact the clinic with any concerns before the next appointment. Dr. Parekh has reviewed this note and agrees with this plan of care. This note was dictated using voice recognition software and make contain errors or omissions. All injections are used with Lidocaine, Bupivacaine and dexamethasone. Occasionally urine drug screen is needed to verify patient's compliance with our office pain contract. This is ordered based off specific treatments related to chronic pain with the potential to abuse certain medications.
[2025-04-09 12:18] VITALS: BP 129/85; PULSE 59; RESP 18; O2SAT 97; BMI 37.1
== END 2025-04-09 23:59 | disposition home or self-care (01) ==
PROVIDERS: PCP Family Medicine; Visit Provider Nurse Practitioner Family
DX: M70.61 Trochanteric bursitis, right hip (principal); M70.62 Trochanteric bursitis, left hip; M46.1 Sacroiliitis, not elsewhere classified; Z79.899 Other long term (current) drug therapy
CPT/HCPCS: 99212; G0463

== ENCOUNTER → 2025-04-11 07:42 | Outpatient (CLI) | payer MEDICAID, SELFPAY | LOC: SL 07:43 | PROVIDERS: PCP Nurse Practitioner; Visit Provider Nurse Practitioner | DX: G47.33 Obstructive sleep apnea (adult) (pediatric) (principal); G47.36 Sleep related hypoventilation in conditions classified elsewhere | CPT/HCPCS: G0399 ==

== ENCOUNTER 2025-04-16 07:13 | Outpatient (CLI) | payer MEDICAID, SELFPAY ==
--- NOTE | 2025-04-16 | CA_ITS ---
APPROVED REPORT Exam: Pharmacologic Technologist: eJssie Bro Ht: 5 ft 6 in Wt: 234 lbs BSA: 2.14 m2 HR: 62 bpm BP: 123/86 mmHg Rhythm: Sr Medical History Medical History: HTN Medications: Acyclovir, Albuterol, Baclofen, Cariprazine, Vit D3, Vit B12, Hydroxyzine HCl, Hyoscyamine sulfate, Metoprolol Succinate ER, Ondansetron HCl, Zolpidem Allergies: NSAIDS Cardiac Risk Factors: HTN, FHX of CAD Stress Test Details Test: Lexiscan HR Resting HR: 62 bpm Max Heart Rate (APMHR): 164.458671 bpm Target HR (85% APMHR): 139.728466 bpm Recovery HR: 85 bpm BP Resting BP: 123.0/86.0 mmHg Max BP: 138.0/91.0 mmHg Recovery BP: 138.0/91.0 mmHg ECG Resting ECG: Sr Stress ECG Conclusion Patient had shortness of breath Less than 1mm st depression Ekg unremarkable due to lexiscan infusion Electronically signed by : Claudia Tsang MD 04/16/2025 13:49:23
--- OUTSIDE RECORDS SUMMARY | 2025-04-16 07:16 | XMS_ITS | Encounter Summary ---
Author Organization Healthcare Address [address] [place] [address] Care Team Providers Care Fisheries Management Biologist Name Role Phone Bety Greene MD Primary Care Provider +1- [phone] Encounter Details Date Type Department Care Team (Latest Contact Info) Description 09/17/2021 [facility] [address] [place] [phone] Nilson Mejía MD [address] [place] [address] [place] [address] Nonintractable headache, unspecified chronicity pattern, unspecified headache type (Primary Dx) Social History Tobacco Use Types Packs/Day Years Used Date Smoking Tobacco: Never Alcohol Use Standard Drinks/Week Comments No 0 (1 standard drink = 0.6 oz pur e alcohol) Comments Unknown Sex and Gender Information Value Date Recorded Sex Assigned at Not on file Legal Sex Female 6:43 PM EDT Gender Identity Not on file Sexual Orientation Not on file documented as of this encounter Plan of Treatment Not on file documented as of this encounter Visit Diagnoses Diagnosis Nonintractable headache, unspecified chronicity pattern, unspecified headache type- Primary documented in this encounter Care Teams Fisheries Management Biologist Relationship Specialty Start Date End Date Bety Greene MD [address] [place] [address] PCP - General 03/20/21 documented as of this encounter
--- OUTSIDE RECORDS SUMMARY | 2025-04-16 07:16 | XMS_ITS | Encounter Summary ---
Author Organization [facility] Address [address] [place] [address] Care Team Providers Care Biological Technical Officer Name Role Phone Bety Greene MD Primary Care Provider +1- [phone] Reason for Referral * Consultation (Routine) - Authorized Specialty Diagnoses / Procedures Referred By Allison levin Referred To Contact Pain Medicine Diagnoses Lumbar radiculopathy Jasen Torres DO [address] [place] [address] [place] [address] Phone: tel: fax: [facility] Interventional Pain Medicine [address] [place] [phone] Phone: tel: fax: Referral ID Status Reason Start Date Expiration Date Visits Requested Visits Authorized [id number] Authorized Specialty Services Required 08/07/2024 02/06/2026 1 1 Encounter Details Date Type Department Care Team (Latest Contact Info) Description 08/07/2024 [facility] [address] [place] [address] Jasen Torres DO [address] [facility] [address] [place] [address] Lumbar radiculopathy (Primary Dx) Social History Tobacco Use Types [...] as of this encounter Plan of Treatment Scheduled Referrals Name Type Priority Associated Diagnoses Orde r Schedule Ambulatory referral to Interventional Pain Outpatient Referral Routine Lumbar radiculopathy Expected: 08/07/2024 (Approximate), Expires: 08/07/2025 documented as of this encounter Visit Diagnoses Diagnosis Lumbar radiculopathy- Primary Thoracic or lumbosacral neuritis or radiculitis, unspecified documented in this encounter Care Teams Biological Technical Officer Relationship Specialty Start Date End Date Bety Greene MD [address] [place] [address] PCP - General 03/20/21 documented as of this encounter
--- OUTSIDE RECORDS SUMMARY | 2025-04-16 07:16 | XMS_ITS | Encounter Summary ---
Author Organization Healthcare Address [address] [place] [id number] Care Team Providers Care Blockmason Name Role Phone Bety Greene MD Primary Care Provider +1- [phone] Encounter Details Date Type Department Care Team (Late st Contact Info) Description 08/31/2021 [facility] [address] [place] [address] Nilson Mejía MD [address] [place] [address] [place] [address] Positive OLIVA (antinuclear antibody) (Primary Dx) Social History Tobacco Use Types [...] as of this encounter Visit Diagnoses Diagnosis Positive OLIVA (antinuclear antibody)- Primary Other and unspecified nonspecific immunological findings documented in this encounter Care Teams Blockmason Relationship Specialty Start Date End Date Bety Greene MD [address] [place] [address] PCP - General 03/20/21 documented as of this encounter
--- OUTSIDE RECORDS SUMMARY | 2025-04-16 07:17 | XMS_ITS | Encounter Summary ---
Author Organization Healthcare Address [address] [id number] Care Team Providers Care Searchlight Operator Name Role Phone Bety Greene MD Primary Care Provider +1- [phone] Encounter Details Date Type Department Care Team (Late st Contact Info) Description 09/28/2024 [facility] [address] [place] [address] [place], CHILDCARE ATTENDANT [address] [place] [address] Social History Tobacco Use Types Packs/Day Years [...] documented as of this encounter Visit Diagnoses Not on filedocumented in this encounter Care Teams Searchlight Operator Relationship Specialty Start Date End Date Bety Greene MD [address] [place] [address] PCP - General 03/20/21 documented as of this encounter
--- OUTSIDE RECORDS SUMMARY | 2025-04-16 07:17 | XMS_ITS | Data Portability ---
Author Organization [place] - [place] - [facility]ST[facility] Address [address] [place] [address] Care Team Providers Care Property Management Assistant Name Role Phone JEFF MARTINEZ Referring Provider [phone] [address] Hand Quilter Assessment Encounter Date Assessment Date Assessment LastModified by Organization Details LastModified Time 07/19/2019 07/19/2019 First, it sounds like she is having PVCs. Upon questioning she does report snoring and excessive daytime fatigue and sleepiness. She tells me she had a normal sleep evaluation about a year ago. 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 I am not overly concerned about PVCs but we may want to entertain repeat sleep study. I will check a TSH now. Next, I am concerned for coronary ischemia. She will need an ischemic evaluation. I recommend a treadmill stress test but she tells me she cannot complete one. She is requesting a pharmacologic stress which I agree with. I will also get an echocardiogram. I will make sure she has a bottle of sublingual nitroglycerin. She should stay off of work until we can get her stress test done. Lastly, it sounds like she is having runs of SVT. I will place a 4-week event monitor. We went over Valsalva maneuvers. If her stress test comes back normal, there are several potential explanations including GI, musculoskeletal, or pulmonary. I would recommend GI evaluation next that she likely has esophageal strictures. RTC 3 months. [email or web address] Not available 07/19/2019 18:04:57 Plan of Treatment Reminders Order Date Submit Date Provider Last Modified By Organization Details Last Modified Time Details Appointments None recorded. Lab TSH, serum or plasma 2018 [facility] [place], [address], [address], [place], [address], 9 01:35:20 Referral None recorded. Procedures None recorded. Surgeries None recorded. Imaging pharmacolo gic stress test 2018 [email or web address] Not available 09:12:54 event monitor 2018 K[facility]ANG Not available 15:33:04 US, echocardio gram 2018 [email or web address] Not available 9 09:12:54 Medication Orders nitroglyce rin 0.4 mg sublingual tablet 2018 INTERFACE [id number], [address] [place], [place], [id number], 9 18:06:44 Patient TargetsNo targets recorded. Patient Instructions Encounter Date Encounter Id Patient Instructions Last Modified By Organization Details Last Modified Time 07/19/2019 [id number] chest pain: care instructions [email or web address] Not available 07/19/2019 18:06:41 palpitations: care instructions [email or web address] Not available 07/19/2019 18:06:41 esophageal dilation: before your procedure [email or web address] Not available 07/19/2019 18:06:41 Reason for Referral None Reported. Results Created Date Observation Date Name Description Value Unit Range Abnormal Flag Note LastModifiedBy Organization Detail LastModifiedTime 07/19/2007/20/2019 TSH, serum or plasm a TSH 0.53 uIU/m L 0.35-5 .50 Not Available [facility] [address] [facility], [place], [address], 07/20/2019 01:35:20 07/06/20 19 07/04/2019 elect suresh lopez am No observ ation record ed. BARCODE Not Available 2018 16:16:38 07/19/20 19 07/13/2019 XR, chest No observ ation record ed. BARCODE Not Available 2018 14:21:50 07/20/20 19 pharm acolo gic stres s test No observ ation record ed. Not Available 2018 16:49:55 07/20/20 19 US, echoc ardio gram No observ ation record ed. Not Available 2018 17:41:47 07/24/20 19 07/24/2019 elect suresh diogr am No observ ation record ed. [email or web address] Not Available 2018 09:40:08 10/29/20 19 08/28/2019 event monit or No observ ation record ed. BARCODE Not Available 2018 15:33:04 Result Notes None recorded. Problems No Known Problems Procedures Surgical History Date Name Laterality Status Provider Name and Address Organization Details Recorded Time Appendectomy completed Carson Dover [place] - [place] - [place] 07/19/2019 17:18:27 Section completed Carson [place] 07/19/2019 17:18:27 Hysterectomy completed Carson Dover [place] 07/19/2019 17:18:27 Gallbladder Surgery completed Carson MARTIN - [place] - [place] 07/19/2019 17:18:27 Hernia Repair completed Carson Dover [place] 07/19/2019 17:18:27 Gastric bypass for obesity completed Carson Dover [place] - [place] [facility] 07/19/2019 17:21:02 Imaging Results None recorded. Procedure Notes None recorded. Medical Equipment None Reported. Allergies Allergen ID Allergen Name Allergen Category Reaction Reaction Severity Criticality Documentation Date Start Date Code Code System Note Provider Name and Address Organization Details Recorded Time 013526 Non-stero idal anti-infl ammatory agent (product) medicatio n Not available Not available Not available 07/19/2019 69598 005 SNOMED Carson lopez [place] - [place] - [place] 9 17:16:10 Medications Name Sig Start Date Stop Date Status Note LastModified by Organization Details LastModified Time cyclobenzaprine 10 mg tablet TK 1 T PO BID PRN active Not Available Not Available No t Available hydrocodone 5 mg-acetaminophen 325 mg tablet TK 1 T PO Q 6 H PRN P active Not Available Not Available No t Available nitroglycerin 0.[address] 1 T PO UNDER THE TOUNGE PRN active Not Available Not Available No t Available Vitals Date Recorded Body height Body mass index (BMI) Body weight Heart rate Oxygen saturation Oxygen saturation in Arterial blood by Pulse oximetry Systolic blood pressure Diastolic blood pressure Provider Name and Address Organization Details Last Updated DateTime 9 163.83 cm 29.1 kg/m2 39719.8 9 g 76 /min 98 % 98 % 102 mm[Hg] 76 mm[Hg] Carson Dover [facility] 9 17:19:55 Social History Question Answer Notes LastModified by [employer] Details LastModified Time Tobacco Smoking Status Never Smoker Carson Dover [facility] 07/19/2019 17:18:25 Do You Have An Advance Directive? No Information not available 07/19/2019 What Is Your Level Of Caffeine Consumption? Heavy Information not available 07/19/2019 What Type Of Diet Are You Following? REGULAR Information not available 07/19/2019 Seat Belts Used Routinely Yes Information not available 07/19/2019 Do You Have Smoke And Carbon Monoxide Detectors In Your Home? Yes Information not available 07/19/2019 Are You Passively Exposed To Smoke? No Information not available 07/19/2019 Sex: Unknown Functional Status Question Answer Note LastModified by [employer] Details LastModified Time What is your level of alcohol consumption? Occasional Information not available 07/19/2019 What is your exercise level? Moderate Information not available 07/19/2019 Mental Status None recorded. Family History Relationship Description Onset Age of this Age Resolved Age Notes LastModified by Organization Details LastModified Time Maternal Grandmother History of hypertension Not available 10/2019 17:18:23 Maternal Grandmother Diabetes mellitus Not available 2018 17:18:23 Maternal Grandmother Family history of malignant neoplasm Not available 2018 17:18:23 Paternal Grandfather Family history of malignant neoplasm Not available 2018 17:18:23 Paternal Grandfather History of hypertension Not available 10/2019 17:18:23 Mother History of hypertension Not available 10/2019 17:18:23 Mother Diabetes mellitus Not available 2018 17:18:23 Mother Heart disease Not available 2018 17:18:23 Mother Hypercholest erolemia Not available 2018 17:18:23 Father Hypercholest erolemia Not available 2018 17:18:23 Father Heart disease Not available 2018 17:18:23 Father Diabetes mellitus Not available 2018 17:18:23 Father History of hypertension Not available 10/2019 17:18:23 Father Myocardial infarction 45 x4 Not available 07/19 17:20:16 Unspecified Relation Family history of malignant neoplasm Not available 2018 17:18:23 Paternal Grandmother Heart disease Not available 2018 17:18:23 Paternal Grandmother History of hypertension Not available 10/2019 17:18:23 Medical History No medical history recorded. Gynecological HistoryNo gynecological history recorded. Obstetrics History GPAL:G 0 P 0 0 0 0 Past Encounters Encounter ID Performer Location Encounter Start Date Encounter Closed Date Diagnosis/Indication Diagnosis SNOMED-CT Code Diagnosis ICD10 Code Diagnosis Note [id number] Sourav Duke MD [facility], [address] [place] [address] 07/19/2019 16:56:48 07/23/2019 09:12:54 Chest pain 59804408 R07.2 Dyspnea on exertion 6084 5006 R06.09 Palpitations 85461298 R0 0.2 Family his tory of premature coronary heart disease 220601251 Z82.49 History of bariatric surgical procedure 481319185 Z98.84 Stricture of esophagus 25635084 K22.2 Health Concerns Section Related Observation LastModified by Organization Detai ls LastModified Time None Recorded Concern Status LastModified by Organization Details LastModified Time None Recorded Advance Directives Directive N: Payers Insurance Date Sequence Insurance Name Policy Number Policy Siu Covered Member ID Siu Member ID Guarantor Name 07/19/2019 1 [facility] Karla Neri [id number] Karla Neri Notes Date Note Type Note Provider Name and Address Organization Details Recorded Time 07/19/2019 text/html Initial visit fo r cardiac evaluation. She has 3 distinct issues that concern her today: 1 ) she reports a flip-flop in her chest followed by a pause and a very hard beat, indicative of PVCs. 2) she has a severe tightness in the center of her chest radiating down her left arm. She states it feels like somebody hit her with a ball-peen hammer. This is associated with intense diaphoresis, dyspnea and nausea. This can last for quite a while. And 3) she reports a sustained tachycardia lasting 15 to 20 minutes. She becomes dyspneic and diaphoretic. This will occur without rhyme or reason, suggestive of an SVT. Her history is significant for family history of early heart disease, obesity status post gastric bypass and history of esophageal strictures. Her father had his first of several MIs in his 40s. She tells me that her gastric bypass was botched and she has her small intestines linked directly to her distal esophagus. She does report esophageal dilation in the past. She comes in with a fax copy of her EKG which is difficult to read but appears grossly normal. Heart rate and blood pressure look fine today. Sourav Duke MD [address] [place] [address], [place], [address], [place] 07/19/2019 18:07:27 OBGyn Episode No OBEpisode recorded.
--- OUTSIDE RECORDS SUMMARY | 2025-04-16 07:17 | XMS_ITS | Clinical Summary ---
Author Organization [facility] Address [address] [place] [address] Care Team Providers Care Electromatic Typist Name Role Phone Bety Greene MD Primary Care Provider [phone] Family History Medical History Relation Name Comments Leukemia Other Relation Name Status Comments Other Social History Tobacco Use Types Packs/Day Years Used Date Smoking Tobacco: Never Alcohol Use Standard Drinks/Week Comments No 0 (1 standard drink = 0.6 oz pur e alcohol) Comments Unknown Sex and Gender Information Value Date Recorded Sex Assigned at Not on file Legal Sex Female 6:43 PM EDT Gender Identity Not on file Sexual Orientation Not on file Last Filed Vital Signs Vital Sign Reading Time Taken Comments Blood Pressure 120/88 03/30/2018 10:35 AM EDT Pulse 84 03/30/2018 10:35 AM EDT Temperature - - Respiratory Rate - - Oxygen Saturation - - Inhaled Oxygen Concentration - - Weight 72.6 kg (160 lb 0.2 oz) 03/30/2018 10:35 AM EDT Height 167.6 cm (5' 6 ) 03/30/2018 10:35 AM EDT Body Mass Index 25.83 03/30/2018 10:35 AM EDT Plan of Treatment Health Maintenance Due Date Last Done Comments [facility]-Depression Screening 1968 [facility]-/Child/Adol SDOH Screenings 1968 [facility]- SDOH Screenings 1986 [facility]-Adult SDOH Screenings 1986 [facility]-Pap Smear 1989 [facility]-Cervical Cancer Screening 1998 [facility]-HPV/Cotest 1998 CT Colonography 2013 Colonoscopy 2013 FIT-DNA 2013 FIT 2013 FOBT 2013 Sigmoidoscopy 2013 [facility]-Colorectal Cancer Screening 2013 [facility]-Pneumococcal Vaccine: 50 + Years (1 of 1 - PCV) 2018 [facility]-Zoster Vaccines (1 of 2) 2018 [facility]-Hepatitis B Vaccines (2 of 3 - 19+ 3-dose series) 11/19/2021 10/22/2021 [id number] Vaccine (1 - 2023- season) 2024 [facility]-Influenza Vaccine (Seaso n Ended) 2025 01/09/2018, 08/13/2016, 08/08/2009 [facility]-DTaP,Tdap,and Td Vaccine s (2 - Td or Tdap) 01/20/2026 01/21/2016 [facility]-Hepatitis A Vaccines Aged Out 08/31/2021 No longer eligible based on patient's age to complete this topic HPV Vaccines Aged Out No longer eligi ble based on patient's age to complete this topic [facility]-HIB Vaccines Aged Out No longer e ligible based on patient's age to complete this topic [facility]-IPV Vaccines Aged Out No longer e ligible based on patient's age to complete this topic [facility]-Rotavirus Vaccines Aged Out No lo nger eligible based on patient's age to complete this topic Insurance MEDICAID Care Teams Electromatic Typist Relationship Specialty Start Date End Date Bety Greene MD [id number] [place] [address] [facility] - General 03/20/21
--- OUTSIDE RECORDS SUMMARY | 2025-04-16 07:17 | XMS_ITS | Data Portability ---
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 Plan of Treatment Reminders Order Date Submit Date Provider Last Modified By Organization Details Last Modified Time Details Appointments None recorded. Lab urinalysis, dipstick 2022 023 estela 4 [facility], [address] [place] [address] , [place], [address], 3 14:10:20 culture, urine 2022 023 KHANG [facility], [address], [address], [place], [address], 3 22:07:01 HbA1c (hemoglobin A1c), blood 2022 023 [email or web address] 4 [facility], [address], [place] [address], [place], [address], 3 13:10:49 CMP, serum or plasma 2022 023 [email or web address] 4 [facility], [address], [place] [address], [place], [address], 3 13:10:49 CBC w/ auto diff 2022 023 [email or web address] 4 [facility], [address], [place] [address], [place], [address], 3 13:10:50 TSH + free T4, serum 2022 023 alandreth 4 [facility], [address], [place] [address], [place], [address], 3 13:10:50 lipid panel, serum 2022 023 alandreth 4 [facility], [address], [place] [address], [place], [address], 3 13:10:50 drug screen, 14 drugs (detectimed ), urine 2022 023 [email or web address] 4 [facility], [address], [place] [address], [place], [address], 15:37:40 vitamin B12 + folate, serum or blood 2022 023 [email or web address] 4 [facility], [address], [place] [address], [place], [address], 13:10:49 unlisted lab - compliance drug josiane, no THC 2022 023 KHANG [facility], [address], [place] [address], [place], [address], 3 20:08:35 drug screen, 14 drugs (detectimed ), urine 2022 023 KHANG [facility], [address], [place], [place], [address], 3 16:13:01 vitamin B12 + folate, serum or blood 2022 023 KHANG [facility], [address], [place], [place], [address], 3 07:13:36 CBC w/ auto diff 2022 023 KHANG [facility], [address], [place] [address], [place], [address], 3 07:13:34 CMP, serum or plasma 2022 023 KHANG [facility], [address], [place] [address], [place], [address], 3 07:13:34 iron + total iron-bindin g capacity (TIBC), serum 2022 023 KHANG [facility], [address], [place] [address], [place], [address], 3 07:13:35 magnesium, serum or plasma 2022 023 KHANG [facility], [address], [place] [address], [place], [address], 3 07:13:38 TSH + free T4, serum 2022 023 KHANG [facility], [address], [place], [place], [address], 3 07:13:33 HbA1c (hemoglobin A1c), blood 2022 023 KHANG [facility], [address], [place] [address], [place], [address], 3 07:13:36 ESR (erythrocyt e sedimentati on rate), blood 2022 023 KHANG [facility], [address], [place] [address], [place], [address], 3 07:13:38 vitamin D, 25-hydroxy, total, serum 2022 023 KHANG [facility], [address], [place] [address], [place], [address], 3 07:13:37 TSH, ultra-sensi tive, serum 2021 KHANG [facility], [address], [place] [address], [place], [address], 2 08:21:33 vitamin D, 25-hydroxy, total, serum 2021 KHANG [facility], [address], [place] [address], [place], [address], 2 08:21:34 Referral orthopedic surgeon referral - Hip pain x1 year, Jamari referred previously patient states she did not get a call 2022 023 estela 4 [facility], [address] [place] [address] , [place], [address], 4 20:08:21 nutritionis t/dietitian referral 2022 023 estela 4 Alexia Abbott, [address] [place] [address] , [place], [address], 4 10:25:53 neurologist referral 2021 mary Ocasio MD, [address] [place] [address], [place], [address], 3 15:02:12 orthopedic surgeon referral 2021 022 mary Ortega MD, [address] [place] [address] , [place], [address], 3 15:02:02 mental health counselor referral 2021 teddy Not available 2 11:44:06 physical therapist referral 2021 022 [facility], [address], [place], [address], 3 15:01:51 pain management referral 2021 022 [email or web address] Not available 3 15:02:23 Procedures None recorded. Surgeries None recorded. Imaging US, duplex, venous, lower extremity 2022 023 [facility], [address] [place] [address] , [place], [address], 3 11:30:07 MRI, brain, w/o contrast 2022 023 Larissa (Centralized Scheduling), [facility] [place], [address], 3 16:07:49 MRI, brain, w/wo contrast 2021 022 KHANG Dias (Centralized Scheduling), [place] [address] [place], [address], 2 10:39:20 XR, hip, unilateral, 2 or 3 view 2021 022 KHANG Not available 2 11:27:00 MRI, lumbar spine, w/o contrast 2021 022 [email or web address] Larissa (Centralized Scheduling), [facility] [place], [address], 2 12:03:36 US, duplex, venous, lower extremity, complete 2021 022 KHANG Not available 2 11:28:58 XR, ankle + foot 2021 022 [email or web address] Not available 2 13:36:34 Medication Orders Macrobid 100 mg capsule [address], [place], [address], 3 14:13:03 acyclovir 400 mg tablet 2022 023 KHANG [facility] [address], [address], 3 14:30:06 diclofenac 1 % topical gel [address], [address], 3 14:30:04 cyanocobala min (vit B-12) 1,000 mcg/mL injection solution 2022 023 Not available 3 14:59:26 phentermine 37.5 mg tablet [address], [address], 3 14:22:30 zolpidem 5 mg tablet [address], [address], 3 10:09:12 cyclobenzap rine 10 mg tablet 2022 023 [facility], [address] [place] [address], [address], 3 10:08:59 venlafaxine ER 37.5 mg capsule,ext ended release 24 hr [address]22 [address] [place] [address], [address], 3 14:29:21 venlafaxine ER 75 mg capsule,ext ended release 24 hr [address], [address], 3 10:09:04 cholecalcif adela (vitamin D3) 25 mcg (1,000 unit) capsule [address], [address], 3 10:09:04 acyclovir 400 mg tablet [address], [address], 3 10:09:01 diltiazem CD 120 mg capsule,ext ended release 24 hr [address], [address], 3 10:09:00 metoprolol succinate ER 25 mg tablet,exte nded release 24 hr [address], [address], 3 10:09:00 diclofenac 1 % topical gel [address], [address], 3 10:09:01 clopidogrel 75 mg tablet [address], [address], 3 10:09:03 Contrave 8 mg-90 mg tablet,exte nded release 2022 [address] [place] [address], [address], 3 13:42:01 Ambien 5 mg tablet [address], [address], 3 16:09:48 duloxetine 30 mg capsule,del ayed release [facility] [facility], [address], 3 10:01:58 mupirocin 2 % topical ointment [address], [address], 3 16:09:46 Imitrex 50 mg tablet [address], [address], 3 15:35:18 trazodone 50 mg tablet [address], [address], 3 15:47:30 cyclobenzap rine 5 mg tablet [address], [address], 3 09:55:58 acyclovir 400 mg tablet 2021 [email or web address], [address], 2 09:35:54 Patient TargetsNo targets recorded. Patient Instructions Encounter Date Encounter Id Patient Instructions Last Modified By Organization Details Last Modified Time 02/02/2023 [id number] controlled substance agreement* Not available 02/02/2023 16:09:43 04/26/2023 [id number] anxiety disorder : care instructions Not available 04/26/2023 10:08:55 learning about healthy weight Not available 04/26/2023 10:08:56 body mass index: care instructions Not available 04/26/2023 10:08:55 depression treatment: care instructions Not available 04/26/2023 10:08:55 starting a weigh t loss plan: care instructions Not available 04/26/2023 10:42:21 06/13/2023 [id number] learning about healthy weight Not available 06/13/2023 14:25:00 body mass index: care instructions Not available 06/13/2023 14:25:00 starting a weigh t loss plan: care instructions Not available 06/13/2023 14:22:25 Reason for Referral Mental Health Counselor Refe rral for Insomnia Referring Physician: Family Ian Miles, Encounter Date: 07/22/2022 Physical Therapist Referral for Low back pain Referring Physician: Family Ian Miles, Encounter Date: 07/22/2022 Orthopedic Surgeon Referral for Pain of hip region Right lateral hip pain Referring Physician: Family Ian Miles, Encounter Date: 07/22/2022 Neurologist Referral for Hea dache Referring Physician: Family Ian Miles, Encounter Date: 07/22/2022 Pain Management Referral for Low back pain Referring Physician: Family Ian Miles, Encounter Date: 07/22/2022 Adjustment Clerk/dietitian Refer ral for Body mass index 30+ - obesity Referring Physician: Family Ian Mckeon, Encounter Date: 04/26/2023 Orthopedic Surgeon Referral for Pain of right hip joint Hip pain x1 year, Jamari referred previously patient states she did not get a call Referring Physician: Family Ian Mckeon, Encounter Date: 06/13/2023 Results Created Date Observation Date Name Description Value Unit Range Abnormal Flag Note LastModifiedBy Organization Detail LastModifiedTime 07/22/20 22 07/23/2022 TSH TSH 0.714 uIU/m L 0.450- 4.500 Not Available [facility] ([facility]) [address] [facility], [place], [address], 07/23/2022 08:21:33 07/22/20 22 07/23/2022 VITAM IN D, 25-HY DROXY vitamin D, 25-hydroxy 29.5 NG/mL 30.0-1 00.0 below low normal Vitam in D defic iency has been defin ed by the Insti tute of Medic ine and an Endoc rine Socie ty pract ice guide line as a level of serum 25-OH vitam in D less than 20 ng/mL (1,2) . The Endoc rine Socie ty went on to furth er defin e vitam in D insuf ficie ncy as a level betwe en 21 and 29 ng/mL (2). 1. IOM (Inst itute of Medic ine). 2010. Dieta ry refer ence intak es for calci um and D. Chase dixon [place]: [facility] Press . 2. Amalia agosto MF, Cathleen abdi [place], Annie off-F errar i BATES, et al. Evalu ation , treat ment, and preve ntion of vitam in D defic iency : an Endoc rine Socie ty clini daniel pract ice guide line. EM. 2010; 96(7) :1911 -30. Not Available [facility] ([facility]) [address] [facility], [place], [address], 07/23/2022 08:21:34 02/03/20 23 02/03/2023 TSH+F REE T4 TSH 0.799 uIU/m L 0.450- 4.500 Not Available [facility] ([facility]) [address] [facility], [place], [address], 02/03/2023 07:13:33 02/03/20 02/03/2023 TSH+F REE T4 T4,free(dire ct) 1.15 NG/dL 0.82-1 .77 Not Available [facility] ([facility]) [address] [place], [address], 02/03/2023 07:13:33 02/03/20 23 02/03/2023 CBC WITH DIFFE RENTI AL/PL ATELE T WBC 5.5 x10e3 /uL 3.4-10 .8 Not Available [facility] ([facility]) [address] [place], [address], 02/03/2023 07:13:34 02/03/2002/03/2023 CBC WITH DIFFE RENTI AL/PL ATELE T RBC 4.21 x10e6 /uL 3.77-5 .28 Not Available [facility] ([facility]) [address] [place], [address], 02/03/2023 07:13:34 02/03/2002/03/2023 CBC WITH DIFFE RENTI AL/PL ATELE T hemoglobin 13.1 g/dL 11.1-1 5.9 Not Available [facility] ([facility]) [address] [place], [address], 02/03/2023 07:13:34 02/03/2002/03/2023 CBC WITH DIFFE RENTI AL/PL ATELE T hematocrit 38.9 % 34.0-4 6.6 Not Available [facility] ([facility]) [address] [place], [address], 02/03/2023 07:13:34 02/03/2002/03/2023 CBC WITH DIFFE RENTI AL/PL ATELE T MCV 92 fL 79-97 Not Available [facility] ([facility]) [address] [place], [address], 02/03/2023 07:13:34 02/03/20 23 02/03/2023 CBC WITH DIFFE RENTI AL/PL ATELE T MCH 31.1 pg 26.6-3 3.0 Not Available [facility] ([facility]) [address] [facility], [place], [address], 02/03/2023 07:13:34 02/03/20 23 02/03/2023 CBC WITH DIFFE RENTI AL/PL ATELE T MCHC 33.7 g/dL 31.5-3 5.7 Not Available [facility] ([facility]) [address] [facility], [place], [address], 02/03/2023 07:13:34 02/03/20 23 02/03/2023 CBC WITH DIFFE RENTI AL/PL ATELE T RDW 12.7 % 11.7-1 5.4 Not Available [facility] ([facility]) [address] [facility], [place], [address], 02/03/2023 07:13:34 02/03/20 23 02/03/2023 CBC WITH DIFFE RENTI AL/PL ATELE T platelets 231 x10e3 /uL 150-45 0 Not Available [facility] ([facility]) [address] [facility], [place], [address], 02/03/2023 07:13:34 02/03/20 23 02/03/2023 CBC WITH DIFFE RENTI AL/PL ATELE T neutrophils 51 % not estab. Not Available [facility] ([facility]) [address] [facility], [place], [address], 02/03/2023 07:13:34 02/03/20 23 02/03/2023 CBC WITH DIFFE RENTI AL/PL ATELE T lymphs 38 % not estab. Not Available [facility] ([facility]) [address] [facility], [place], [address], 02/03/2023 07:13:34 02/03/20 23 02/03/2023 CBC WITH DIFFE RENTI AL/PL ATELE T monocytes 8 % not estab. Not Available [facility] ([facility]) [address] [facility], [place], [address], 02/03/2023 07:13:34 02/03/20 23 02/03/2023 CBC WITH DIFFE RENTI AL/PL ATELE T eos 2 % not estab. Not Available [facility] ([facility]) [address] [facility], [place], [address], 02/03/2023 07:13:34 02/03/20 23 02/03/2023 CBC WITH DIFFE RENTI AL/PL ATELE T basos 1 % not estab. Not Available [facility] ([facility]) [address] [facility], [place], [address], 02/03/2023 07:13:34 02/03/20 23 02/03/2023 CBC WITH DIFFE RENTI AL/PL ATELE T immature cells ANALOG DEVICE DESIGNER Not Available [facility] ([facility]) [address] [place], [address], 02/03/2023 07:13:34 02/03/20 23 02/03/2023 CBC WITH DIFFE RENTI AL/PL ATELE T neutrophils (absolute) 2.8 x10e3 /uL 1.4-7. 0 Not Available [facility] ([facility]) [address] [place], [address], 02/03/2023 07:13:34 02/03/20 23 02/03/2023 CBC WITH DIFFE RENTI AL/PL ATELE T lymphs (absolute) 2.1 x10e3 /uL 0.7-3. 1 Not Available [facility] ([facility]) [address] [place], [address], 02/03/2023 07:13:34 02/03/20 23 02/03/2023 CBC WITH DIFFE RENTI AL/PL ATELE T monocytes(ab solute) 0.5 x10e3 /uL 0.1-0. 9 Not Available [facility] ([facility]) [address] [facility], [place], [address], 02/03/2023 07:13:34 02/03/20 23 02/03/2023 CBC WITH DIFFE RENTI AL/PL ATELE T eos (absolute) 0.1 x10e3 /uL 0.0-0. 4 Not Available [facility] ([facility]) [address] [facility], [place], [address], 02/03/2023 07:13:34 02/03/20 23 02/03/2023 CBC WITH DIFFE RENTI AL/PL ATELE T baso (absolute) 0.1 x10e3 /uL 0.0-0. 2 Not Available [facility] ([facility]) [address] [facility], [place], [address], 02/03/2023 07:13:34 02/03/20 23 02/03/2023 CBC WITH DIFFE RENTI AL/PL ATELE T immature granulocytes 0 % not estab. Not Available [facility] ([facility]) [address] [facility], [place], [address], 02/03/2023 07:13:34 02/03/20 23 02/03/2023 CBC WITH DIFFE RENTI AL/PL ATELE T immature grans (abs) 0.0 x10e3 /uL 0.0-0. 1 Not Available [facility] ([facility]) [address] [facility], [place], [address], 02/03/2023 07:13:34 02/03/20 23 02/03/2023 CBC WITH DIFFE RENTI AL/PL ATELE T NRBC ANALOG DEVICE DESIGNER Not Available [facility] ([facility]) [address] [facility], [place], [address], 02/03/2023 07:13:34 02/03/20 23 02/03/2023 CBC WITH DIFFE RENTI AL/PL ATELE T hematology comments: ANALOG DEVICE DESIGNER Not Available [facility] ([facility]) [address] [facility], [place], [address], 02/03/2023 07:13:34 02/03/20 23 02/03/2023 COMP. METAB OLIC PANEL (14) glucose 87 mg/dL 70-99 Not Available [facility] ([facility]) [address] [facility], [place], [address], 02/03/2023 07:13:34 02/03/20 23 02/03/2023 COMP. METAB OLIC PANEL (14) BUN 9 mg/dL 6-24 Not Available [facility] ([facility]) [address] [facility], [place], [address], 02/03/2023 07:13:34 02/03/20 23 02/03/2023 COMP. METAB OLIC PANEL (14) creatinine 0.79 mg/dL 0.57-1 .00 Not Available [facility] ([facility]) [address] [facility], [place], [address], 02/03/2023 07:13:34 02/03/20 23 02/03/2023 COMP. METAB OLIC PANEL (14) eGFR 89 mL/mi n/1.7 3 >59 Not Available [facility] ([facility]) [address] [facility], [place], [address], 02/03/2023 07:13:34 02/03/20 23 02/03/2023 COMP. METAB OLIC PANEL (14) BUN/creatini ne ratio 11 9-23 Not Available [facility] ([facility]) [address] [facility], [place], [address], 02/03/2023 07:13:34 02/03/20 23 02/03/2023 COMP. METAB OLIC PANEL (14) sodium 140 mmol/ L 134-14 4 Not Available [facility] ([facility]) [address] [facility], [place], [address], 02/03/2023 07:13:34 02/03/20 23 02/03/2023 COMP. METAB OLIC PANEL (14) potassium 4.3 mmol/ L 3.5-5. 2 Not Available [facility] ([facility]) [address] [facility], [place], [address], 02/03/2023 07:13:34 02/03/20 23 02/03/2023 COMP. METAB OLIC PANEL (14) chloride 102 mmol/ L 96-106 Not Available [facility] ([facility]) [address] [facility], [place], [address], 02/03/2023 07:13:34 02/03/20 23 02/03/2023 COMP. METAB OLIC PANEL (14) carbon dioxide, total 27 mmol/ L 20-29 Not Available [facility] ([facility]) [address] [facility], [place], [address], 02/03/2023 07:13:34 02/03/20 23 02/03/2023 COMP. METAB OLIC PANEL (14) calcium 9.6 mg/dL 8.7-10 .2 Not Available [facility] ([facility]) [address] [facility], [place], [address], 02/03/2023 07:13:34 02/03/20 23 02/03/2023 COMP. METAB OLIC PANEL (14) protein, total 6.5 g/dL 6.0-8. 5 Not Available [facility] ([facility]) [address] [facility], [place], [address], 02/03/2023 07:13:34 02/03/20 23 02/03/2023 COMP. METAB OLIC PANEL (14) albumin 4.4 g/dL 3.8-4. 9 Not Available [facility] ([facility]) [address] [facility], [place], [address], 02/03/2023 07:13:34 02/03/20 23 02/03/2023 COMP. METAB OLIC PANEL (14) globulin, total 2.1 g/dL 1.5-4. 5 Not Available [facility] ([facility]) [address] [place], [address], 02/03/2023 07:13:34 02/03/20 23 02/03/2023 COMP. METAB OLIC PANEL (14) A/G ratio 2.1 1.2-2. 2 Not Available [facility] ([facility]) [address] [place], [address], 02/03/2023 07:13:34 02/03/20 23 02/03/2023 COMP. METAB OLIC PANEL (14) bilirubin, total 0.5 mg/dL 0.0-1. 2 Not Available [facility] ([facility]) [address] [place], [address], 02/03/2023 07:13:34 02/03/20 23 02/03/2023 COMP. METAB OLIC PANEL (14) alkaline phosphatase 126 IU/L 44-121 above high normal Not Available [facility] ([facility]) [address] [place], [address], 02/03/2023 07:13:34 02/03/20 23 02/03/2023 COMP. METAB OLIC PANEL (14) AST (SGOT) 28 IU/L 0-40 Not Available [facility] ([facility]) [address] [place], [address], 02/03/2023 07:13:34 02/03/20 23 02/03/2023 COMP. METAB OLIC PANEL (14) ALT (SGPT) 14 IU/L 0-32 Not Available [facility] ([facility]) [address] [place], [address], 02/03/2023 07:13:34 02/03/20 23 02/03/2023 IRON AND TIBC iron bind.cap.(TI BC) 294 ug/dL 250-45 0 Not Available [facility] ([facility]) [address] [place], [address], 02/03/2023 07:13:35 02/03/20 23 02/03/2023 IRON AND TIBC UIBC 228 ug/dL 131-42 5 Not Available [facility] ([facility]) [address] [facility], [place], [address], 02/03/2023 07:13:35 02/03/20 23 02/03/2023 IRON AND TIBC iron 66 ug/dL 27-159 Not Available [facility] ([facility]) [address] [place], [address], 02/03/2023 07:13:35 02/03/20 23 02/03/2023 IRON AND TIBC iron saturation 22 % 15-55 Not Available [facility] ([facility]) [address] [place], [address], 02/03/2023 07:13:35 02/03/20 23 02/03/2023 VITAM IN B12 AND FOLAT E vitamin B12 270 pg/mL 232-12 45 Not Available [facility] ([facility]) [address] [facility], [place], [address], 02/03/2023 07:13:36 02/03/20 23 02/03/2023 VITAM IN B12 AND FOLAT E folate (folic acid), serum 15.7 NG/mL >3.0 A serum folat e robby ntrat ion of less than 3.1 ng/mL is consi dered to repre sent clini daniel defic iency . Not Available [facility] ([facility]) [address] [place], [address], 02/03/2023 07:13:36 02/03/20 23 02/03/2023 HEMOG LOBIN A1C hemoglobin A1C 5.9 % 4.8-5. 6 above high normal Predi abete s: 5.7 - 6.4 Diabe komal: >6.4 Glyce chadwick contr ol for adult s with diabe komal: <7.0 Not Available [facility] ([facility]) [address] [facility], [place], [address], 02/03/2023 07:13:36 02/03/20 23 02/03/2023 VITAM IN D, 25-HY DROXY vitamin D, 25-hydroxy 37.0 NG/mL 30.0-1 00.0 Vitam in D defic iency has been defin ed by the Insti tute of Medic ine and an Endoc rine Socie ty pract ice guide line as a level of serum 25-OH vitam in D less than 20 ng/mL (1,2) . The Endoc rine Socie ty went on to furth er defin e vitam in D insuf ficie ncy as a level betwe en 21 and 29 ng/mL (2). 1. IOM (Inst itute of Medic ine). 2009. Brooks ry refer ence augustine es for calci um and D. Chase dixon [place]: The Natio nal [facility] Press . 2. Amalia agosto MF, Cathleen abdi [place], Annie off-F errar i BATES, et al. Evalu ation , treat ment, and preve ntion of vitam in D defic iency : an Endoc rine Socie ty clini daniel pract ice guide line. JCEM. 2010; 96(7) :1911 -30. Not Available [facility] ([facility]) [address] [facility], [place], [address], 02/03/2023 07:13:37 02/03/20 23 02/03/2023 SEDIM ENTAT ION RATE- WESTE RGREN sedimentatio n rate-westerg callum 16 mm/HR 0-40 Not Available [facility] ([facility]) [address] [facility], [place], [address], 02/03/2023 07:13:38 02/03/20 23 02/03/2023 MAGNE SIUM magnesium 2.0 mg/dL 1.6-2. 3 Not Available [facility] ([facility]) [address], [place], [address], 02/03/2023 07:13:38 02/03/20 23 02/08/2023 COMPL IANCE DRUG JOSIANE SIS, UR summary report (summary) FINAL ===== ===== ===== ===== ===== ===== ===== ===== ===== ===== ===== ===== ===== === TOXAS SURE COMP DRUG JOSIANE SIS,U R ===== ===== ===== ===== ===== ===== ===== ===== ===== ===== ===== ===== ===== === Test Resul t Flag Units NO DRUGS DETEC SAMARA. ===== ===== ===== ===== ===== ===== ===== ===== ===== ===== ===== ===== ===== === Test Resul t Flag Units Ref Range Creat inine 39 mg/dL >=20 ===== ===== ===== ===== ===== ===== ===== ===== ===== ===== ===== ===== ===== === Decla red Medic ation s: Medic ation list was not provi ded. ===== ===== ===== ===== ===== ===== ===== ===== ===== ===== ===== ===== ===== === For clini daniel consu ltati on, pleas e call [phone]. ===== ===== ===== ===== ===== ===== ===== ===== ===== ===== ===== ===== ===== === Not Available [facility] ([facility]) [address] [place], [address], 02/08/2023 16:13:02/03/20 23 02/08/2023 COMPL IANCE DRUG JOSIANE SIS, UR pdf . Not Available [facility] ([facility]) [address] [place], [address], 02/08/2023 16:13:04/26/20 23 05/03/2023 COMPL IANCE DRUG JOSIANE , NO THC summary report (summary) FINAL ===== ===== ===== ===== ===== ===== ===== ===== ===== ===== ===== ===== ===== === TOXAS SURE COMP DRUG JOSIANE SIS,N O THC,U R ===== ===== ===== ===== ===== ===== ===== ===== ===== ===== ===== ===== ===== === Test Resul t Flag Units NO DRUGS DETEC SAMARA. ===== ===== ===== ===== ===== ===== ===== ===== ===== ===== ===== ===== ===== === Test Resul t Flag Units Ref Range Creat inine 28 mg/dL >=20 ===== ===== ===== ===== ===== ===== ===== ===== ===== ===== ===== ===== ===== === Decla red Medic ation s: Medic ation list was not provi ded. ===== ===== ===== ===== ===== ===== ===== ===== ===== ===== ===== ===== ===== === For clini daniel consu ltati on, pleas e call . ===== ===== ===== ===== ===== ===== ===== ===== ===== ===== ===== ===== ===== === Not Available [facility] ([facility]) [address] [place], [address], 05/03/2023 20:08:35 04/26/20 23 05/03/2023 COMPL IANCE DRUG JOSIANE , NO THC pdf . Not Available [facility] ([facility]) [address] [place], [address], 05/03/2023 20:08:35 06/13/20 23 06/18/2023 URINE CULTU RE, ROUTI NE urine culture, routine Final report abnormal Not Available [facility] ([facility]) [address] [place], [address], 06/18/2023 22:07:00 06/13/20 23 06/18/2023 URINE CULTU RE, ROUTI NE result 1 Escher ichia coli abnormal Great er than 100,0 00 colon y formi ng units per mL Cefaz gigi <=4 ug/mL Cefaz gigi with an CHADWICK <=16 predi cts susce ptibi lity to the oral agent s cefac aron, cefdi suzi, cefpo doxim e, cefpr ozil, cefur oxime , cepha lexin , and lorac arbef when used for thera py of uncom plica samara urina ry tract infec tions due to E. coli, Klebs iella pneum oniae , and Prote us mirab ilis. Not Available [facility] ([facility]) [address], [place], [address], 06/18/2023 22:07:00 06/13/20 23 06/18/2023 URINE CULTU RE, ROUTI NE antimicrobia l susceptibili ty Commen t S = Susce ptibl e; I = Inter media te; R = Resis tant P = Posit samantha; N = Negat samantha MICS are expre ssed in micro grams per mL Antib iotic RSLT# 1 RSLT# 2 RSLT# 3 RSLT# 4 Amoxi cilli n/Cla vulan ic Acid S<=2 Ampic illin S<=2 Cefep damion S<=0. 12 Ceftr iaxon e S<=0. 25 Cefur oxime S<=1 Cipro floxa jana S<=0. 25 Ertap enem S<=0. 12 Genta micin S<=1 Imipe nem S<=0. 25 Levof loxac in S<=0. 12 Merop enem S< =0.25 Nitro furan toin S<=16 Piper acill in/Ta zobac oseguera S<=4 Tetra cycli ne S<=1 Tobra mycin S<=1 Trime thopr im/Haque lfa S<=20 Not Available [facility] ([facility]) [address], [place], [address], 06/18/2023 22:07:00 06/13/20 23 06/13/2023 urina lysis , dipst ick Leukocytes Trace Not Available [facility] [address] , [place], [address], 06/13/2023 13:56:16 06/13/20 23 06/13/2023 urina lysis , dipst ick Nitrite negati ve Not Available [address] [place], [address], 06/13/2023 13:56:16 06/13/20 23 06/13/2023 urina lysis , dipst ick Urobilinogen .2 Not Available [address] , [place], [address], 06/13/2023 13:56:16 06/13/20 23 06/13/2023 urina lysis , dipst ick Protein Negati ve Not Available [address] , [place], [address], 06/13/2023 13:56:16 06/13/20 23 06/13/2023 urina lysis , dipst ick pH 5.0 Not Available [address] , [place], [address], 06/13/2023 13:56:16 06/13/20 23 06/13/2023 urina lysis , dipst ick Blood Negati ve Not Available [address] , [place], [address], 06/13/2023 13:56:16 06/13/20 23 06/13/2023 urina lysis , dipst ick Specific [place] 1.010 Not Available [address] , [place], [address], 06/13/2023 13:56:16 06/13/20 23 06/13/2023 urina lysis , dipst ick Ketone Negati ve Not Available [address] , [place], [address], 06/13/2023 13:56:16 06/13/20 23 06/13/2023 urina lysis , dipst ick Bilirubin Negati ve Not Available [address] , [place], [address], 06/13/2023 13:56:16 06/13/20 23 06/13/2023 urina lysis , dipst ick Glucose 100 Not Available [address] , [place], [address], 06/13/2023 13:56:16 06/13/20 23 06/13/2023 urina lysis , dipst ick Appearance Slight ly Cloudy Not Available [address] , [place], [address], 06/13/2023 13:56:16 06/13/20 23 06/13/2023 urina lysis , dipst ick Color Yellow Not Available [address] , [place], [address], 06/13/2023 13:56:16 07/22/20 22 XR, ankle , 3 or more view No observ ation record ed. [email or web address] Not Available 2021 00:41:51 07/22/20 22 XR, foot, 3 or more view No observ ation record ed. [email or web address] Not Available 07/09 16:07:34 07/22/20 22 XR, hip, unila teral , 2 or 3 view No observ ation record ed. [email or web address] Not Available 2021 20:54:52 07/22/20 22 US, duple x, venou s, lower extre mity, compl ete No observ ation record ed. [email or web address] Not Available 2021 20:54:02 08/09/20 22 08/09/2022 MRI, brain , w/wo contr ast [facility] Name: ARMIN ANGULO [facility] [address] Phys: Jamari [place] [address] : 1969 Age: 52 Sex: F Acct: [id number] Loc: G.MRI PHONE #: Exam Date: 2021 Status : REG CLI FAX #: Rad# [id number] Unit# [id number] Admit Date: 2021 EXAMS: CPT CODE: [id number] MRI BRAIN W/WO CONTRA ST [address] MRI OF THE BRAIN WITH AND WITHOU T CONTRA ST, 022: CLINIC AL HISTOR Y: Headac he and dizzin ess COMPAR TESSIE: None. TECHNI QUE: Sagitt al T1 and axial T1, T2, and diffus ion weight ed images , as well as sneed l FLAIR images of the brain were obtain ed withou t the use of intrav enous contra st. Follow ing contra st admini strati on, axial and sneed l T1-yessy ghted images were also obtain ed. FINDIN GS: Intrac ranial ly, the ventri cular and cister nal spaces are normal in size and shape for a patien t of this. There is no domina nt mass, midlin e shift, or hydroc ephalu s. There is no acute infarc t on the diffus ion-we ighted images and no pathol ogic enhanc ement follow ing contra st admini strati on. There are 6 puncta te foci of abnorm al T2 hyperi ntensi ty within the perive ntricu lar white matter , concen trated in the left fronta l lobe. There is a 9 mm mucous retent ion cyst versus polyp within the anteri or spheno id sinus. There is mild mucope rioste al thicke melanie of the inferi or right maxill cecily sinus. The remain ronni the visual ized parana alli sinuse s and mastoi d air cells are clear. The intrao rbital conten ts are within normal limits . There is no suspic ious osseou s lesion IMPRES SAIMA: 1. No acute intrac ranial proces s. 2. Severa l puncta te foci of abnorm al T2 hyperi ntensi ty within the perive ntricu lar white matter , likely second cecily to chroni c small vessel ischem ia 3. Mild chroni c spheno id and right maxill cecily sinusi tis Electr onical ly Signed by SMITH IBRAHIM MD on 2021 at 1017 Report ed and signed by: SMITH IBRAHIM MD PAGE 1 Signed Report (CULLEN NUED) [facility] Name: ARMIN ANGULO [address] [place], [place] [address]a [employer] [facility] Phys: Nilson [place]ía [place] [address] : 1969 Age: 52 Sex: F Acct: [id number] Loc: G.MRI PHONE #: Exam Date: 2021 Status : REG CLI FAX #: Rad# [id number] Unit# [id number] Admit Date: 2021 EXAMS: CPT CODE: [id number] MRI BRAIN W/WO CONTRA ST [address]371 CC: Nilson Mejía MD Dictat ed Date/T damion: 2021 (1017) Techno logist : KATHERINE BORDEN Transc ribed Date/T damion: 2021 (1017) Transc riptio nist: DR.HAG MIKI Guy onic Signat ure Date/T damion: 2021 (1017) Printe d Date/T damion: 2021 (1037) BATCH NO: N/A PAGE 2 Signed Report CC'ed Logic: Orderi ng Provid er: JAMARI GALLEGOS Attend ing Provid er: JAMARI GALLEGOS Referr ing Provid er: JAMARI GALLEGOS Consul ting Provid er: JAMARI GALLEGOS [email or web address] [facility] [address] [place] [address] , [place], [address], 08/17/2022 12:35:54 04/26/20 23 US, blanca xamanda s, [facility] mity No observ ation record ed. [address] , [place], [address], 06/08/2023 14:28:01 Result Notes None recorded. Problems Name Problem SNOMED Code Status Onset Date Resolution Date Notes Provider Name and Address Organization Details Recorded Time Edema 774049992 Active Ninfa Padron null, [place] - [facility] 2 08:53:02 Allergic rhinitis 93883685 Active Ninfa Padron null, [place] - [facility] 2 08:53:01 History of bariatric surgical procedure 397368632 Active 2019 [place] -[place] Ninfa Padron null, [place] - [facility] 2 08:53:02 Ureteric stone 69114854 Active 2019 Not Available [facility] 19:23:52 Cobalamin deficienc y 227074581 Active 2019 Ninfa Padron null, [place] - [facility] 2 08:53:01 Pain in right knee Completed 201901/06/2021 Katherine Burch PA-C [address], [place], [address] , [place] - [facility] 1 09:45:50 Restless legs 62104157 Active 2019 Ninfa Padron null, [place] - [facility] 2 08:53:01 Osteoarth ritis of knee 740983451 Active 2019 Ninfa Padron null, [place] - [facility] 2 08:53:01 Tear of meniscus of knee 119064917 Active 2019 Ninfa Padron null, [place] - [facility] 2 08:53:02 Cervical disc disorder 790601899 Active 2015 Ninfa Pad[place] - [facility] 2 08:53:01 Reduced libido 0815416 Active 2015 Ninfa Pad[place] - [facility] 2 08:53:01 Depressiv e disorder 55651593 Active 2015 Ninfa Pad[place] - [facility] 2 08:53:01 Serum alkaline phosphata se above reference range 717011142 Active 2015 Ninfa Nereida null, [place] - [facility] 2 08:53:01 Fibromyal iban 083125987 Active 2015 Ninfa lopez, [place] - [facility] 2 08:53:02 Liver enzymes level above reference range 700532881 Active 2015 Ninfa lopez, [place] - [facility] 2 08:53:01 Increased liver function 75826437 Active 2015 PAUL Aleg[place] - [facility] 2 08:53:01 Gastroeso phageal reflux disease 414566350 Active 2015 PAUL Alegre - [facility] 2 08:53:01 Irritable bowel syndrome 27708267 Active 2015 PAUL Aleg[place] - [facility] 2 08:53:01 Long-term drug therapy Active 2015 PAUL Alegre - [facility] 2 08:53:01 Pain of multiple joints 85035658 Active 2015 PAUL Aleg[place] - [facility] 2 08:53:02 Sinus bradycard ia 66424361 Completed 201501/06/2021 Katherine Burch PA-C [address], [place], [address] , [place] - [facility] 1 09:46:03 Vitamin D deficienc y 28031023 Active 2015 Ninfa lopez [place] - [facility] 2 08:53:01 Exposure to SARS-CoV- 2 Active 2019 PAUL Alegre - [facility] 2 08:53:02 Insomnia 688735948 Active 2015 Ninfa lopez, [place] - [facility] 2 08:53:01 Coronary arteriosc lerosis 15171983 Active 2021 PAUL Aleg[place] - [facility] 2 08:53:01 History of cardiac catheteri zation 18477309712 100 Active Ninfa lopez [place] - [facility] 2 08:53:01 Pain in right foot 10546697278 9107 Active 2021 Nilson Jamari null, [place] - [facility] 2 01:05:20 Anxiety 08711253 Active 2022 Nalini Rodriguez, PROPERTY UNDERWRITER [address], [place], [address] , [place] - [facility] 3 10:07:17 Essential hypertens ion 34196382 Active 2022 Nalini Rodriguez APRN [address], [place], [address] , [place] - [facility] 3 10:07:57 Iron deficienc y 73449117 Active 2016 Ninfa Padron [facility], [place] - [facility] 2 08:53:01 Problem Notes None recorded. Procedures Surgical History Date Name Laterality Status Provider Name and Address Organization Details Recorded Time 021 Diastolic B/P greater than or equal to 90 mm Hg completed [facility] - [facility] 01/12/2021 09:51:31 021 Systolic B/P greater than or equal to 140 mm Hg completed [facility] - [facility] 01/12/2021 09:51:26 020 Systolic B/P less than 130 mm Hg completed [facility] - [facility] 07/07/2020 14:08:05 020 Diastolic B/P 80-89 mm Hg completed [facility] - [facility] 07/07/2020 14:08:11 020 Diastolic B/P 80-89 mm Hg completed [facility] - [facility] 06/09/2020 11:37:11 020 Systolic B/P greater than or equal to 140 mm Hg completed [facility] - [facility] 06/09/2020 11:37:07 020 Skin Tag Removal, Up to 15 Lesions completed Bety Greene [place] - [facility] 04/04/2020 19:32:27 020 Systolic B/P less than 130 mm Hg completed [facility] - [facility] 03/14/2020 16:33:47 020 Diastolic B/P 80-89 mm Hg completed [facility] - [facility] 03/14/2020 16:33:50 020 Diastolic B/P greater than or equal to 90 mm Hg completed [facility] - [facility] 01/21/2020 14:26:43 020 Systolic B/P greater than or equal to 140 mm Hg completed Lisa Bello [place] - [facility] 01/21/2020 14:26:38 020 Diastolic B/P 80-89 mm Hg completed Lisa Bello [place] - [facility] 01/17/2020 17:05:53 020 Systolic B/P 130-139 mm Hg completed Lisa Bello [place] - [facility] 01/17/2020 17:05:48 020 Systolic B/P less than 130 mm Hg completed Lisa MILLER - [facility] 01/02/2020 16:43:38 020 Diastolic B/P 80-89 mm Hg completed Lisa MILLER - [facility] 01/02/2020 16:43:43 019 Systolic B/P less than 130 mm Hg completed Bety Greene [place] - [facility] 11/19/2018 15:18:07 019 Diastolic B/P less than 80 mm Hg completed Bety Greene [place] - [facility] 11/19/2018 15:18:16 012 Date of Last Pap Smear completed Anabel Chaparro [place] - [facility] 03/15/2017 09:55:26 012 Salpingo-oophorectom y, Bilateral completed Anabel Chaparro [place] - [facility] 03/15/2017 09:50:37 006 Hysterectomy, Vaginal completed Anabel Chaparro [place] - [facility] 03/15/2017 09:49:59 Appendectomy completed Juliann Cardona [place] - [facility] 09/16/2016 15:51:36 Diagnostic Laparoscopy completed Juliann Cardona [place] - [facility] 09/16/2016 15:52:40 delivery completed Anabel MILLER - [facility] 03/15/2017 09:51:21 Carpal tunnel surgery completed Anabel MILLER - [facility] 03/15/2017 09:51:47 Cystourethroscopy completed Anabel Chaparro [place] - [facility] 03/15/2017 09:51:54 Endoscopy completed Anabel MILLER - [facility] 03/15/2017 09:52:08 Unlisted px foot/toes completed Anabel MILLER - [facility] 03/15/2017 09:52:21 Cholecystectomy, laparoscopic completed Anabel MILLER - [facility] 03/15/2017 09:52:29 Gastric Bypass completed Anabel MILLER - [facility] 03/15/2017 09:52:36 Hernia Repair completed Anabel MLILER - [facility] 03/15/2017 09:52:49 Unlisted procedure nose completed Anabel MILLER - [facility] 03/15/2017 09:52:54 Tubal Ligation [facility] 09:53:01 Imaging Results None recorded. Procedure Notes None recorded. Medical Equipment None Reported. Allergies Allergen ID Allergen Name Allergen Category Reaction Reaction Severity Criticality Documentation Date Start Date Code Code System Note Provider Name and Address Organization Details Recorded Time 32581 Non-stero idal anti-infl ammatory agent (product) medicatio n Not available Not available Not available 08/13/20162013 49374 005 SNOMED not suppo sed to take due to gastr ic bypas s Not Available [facility] 22:22:26 Medications Name Sig Start Date Stop Date Status Note LastModified by Organization Details LastModified Time Miralax 17 gram oral powder packet take 1 packet (17 gram) mixed with 8 oz. water, juice, soda, coffee or tea by oral route once daily 06/24 completed Miralax 17 gram oral powder in packet;R ecorded Status: Recorded on: 03/02/20 10 10:09AM; Disconti nued Status: Disconti nued on: 06/24/20 10 11:23AM; User: sen ruiz;Indica tion: Constipa tion - (09.5640 00) Not Available Not Available Not Available fluoxetin e 40 mg capsule take 1 capsule (40 mg) by oral route once daily in the morning for 30 days 10/09 completed Not Available Not Available Not Available cyclobenz aprine 10 mg tablet TAKE ONE (1) TABLET BY MOUTH THREE (3) TIMES DAILY 2023 active Not Available Not Available Not Avai lable amoxicill in 500 mg capsule TAKE ONE (1) CAPSULE( S) EVERY 8 HOURS BY ORAL ROUTE FOR 10 DAYS. 12/30 completed Not Available Not Available Not Available methocarb prince 500 mg tablet Take 1 tablet every 6 hours by oral route as needed for 5 days. 11/16 completed Not Available Not Available Not Available Augmentin 875 mg-125 mg tablet take 1 tablet by oral route every 12 hours for 7 days 09/20 completed Augmenti n 875-125 mg oral tablet;P rescribe Status: Prescrib ed on: 09/13/20 13 12:34PM; Disconti nued Status: Disconti nued on: 09/20/20 13 9:09AM;U ser: [email or web address] ryh;Est. Completi on: 09/20/20 13;Indic ation: Acute Bacteria l Sinusiti s - (4619 00);Phar macyVeri fied: 09/13/20 13 12:34PM Not Available Not Available Not Available Levsin 0.125 mg tablet take 1 tablet (0.125 mg) by oral route every 4 hours as needed for 30 days 06/24 completed Levsin 0.125 mg oral tablet;R ecorded Status: Recorded on: 03/02/20 10 11:17AM; Disconti nued Status: Disconti nued on: 06/24/20 10 11:23AM; User: [employer];June reynolds Completsamuel on: 06/30/20 10;Indic ation: Irritabl e Bowel Syndrome - (5641 00);Prin samara: 03/02/20 10 Not Available Not Available Not Available Bromfed DM 2 mg-30 mg-10 mg/5 mL oral syrup Take 10 mL every 4 hours by oral route. 01/02 completed Not Available Not Available Not Available Restoril 30 mg capsule take 1 capsule (30 mg) by oral route once daily at bedtime as needed for 10 days 04/10 completed Restoril 30 mg oral capsule; Recorded Status: Recorded on: 04/09/20 14 4:21PM;D iscontin ued Status: Disconti nued on: 04/10/20 14 4:17PM;U ser: markesbe ryh;Est. Completi on: 04/19/20 14 Not Available Not Available Not Available promethaz ine-DM 6.25 mg-15 mg/5 mL oral syrup TAKE ONE TEASPOON FUL (5MLS) FOUR (4) TIMES DAILY 01/12 completed Not Available Not Available Not Available vitamin A 2,400 mcg capsule take 1 capsule (8,000 unit) by oral route once daily 06/24 completed vitamin A 8,000 unit oral capsule; Recorded Status: Recorded on: 03/02/20 10 10:09AM; Disconti nued Status: Disconti nued on: 06/24/20 10 11:23AM; User: sen Velasco tion: Vitamin A Deficien cy - (2649 ) Not Available Not Available Not Available venlafaxi ne ER 37.5 mg capsule,e xtended release 24 hr TAKE 1 CAPSULE BY MOUTH EVERY DAY FOR ONE (1) WEEK 06/13 completed Not Available Not Available Not Available acetamino phen 325 mg tablet TAKE 2 TABLETS BY ORAL ROUTE EVERY SIX (6) HOURS NEEDED 04/26 completed Not Available Not Available Not Available venlafaxi ne ER 75 mg capsule,e xtended release 24 hr Take 1 Capsule by mouth every day. active Not Available Not Available No t Available paroxetin e 10 mg tablet TAKE ONE TABLET EVERY DAY BY ORAL ROUTE FOR FIRST ONE WEEK 10/22 completed Not Available Not Available Not Available ropinirol e 1 mg tablet TAKE ONE (1) TABLET THREE TIMES DAILY 08/31 completed Not Available Not Available Not Available Zyrtec-D 5 mg-120 mg tablet,ex tended release take 1 tablet by oral route every 12 hours for 10 days 03/05 completed Zyrtec-D 5-120 mg oral tablet extended release 12 hr;Recor ded Status: Recorded on: 01/06/20 13 3:46PM;D iscontin ued Status: Disconti nued on: 03/05/20 13 3:18PM;U ser: Hainline T;Est. Completi on: 01/16/20 13;Indic ation: Eustachi an Tube Dysfunct ion - (381.81) ;Printed : 01/06/20 13 Not Available Not Available Not Available bumetanid e 2 mg tablet Take 1 tablet every day by oral route as directed for 30 days. 10/09 completed Not Available Not Available Not Available tizanidin e 2 mg tablet TAKE 1 TABLET BY MOUTH EVERY 12 HOURS 10/22 completed Not Available Not Available Not Available citalopra m 40 mg tablet take 1 tablet (40 mg) by oral route once daily for 30 days 12/22 completed Not Available Not Available Not Available trazodone 50 mg tablet TAKE ONE (1) TABLET EVERY DAY BY MOUTH AT BEDTIME. 02/02 completed Not Available Not Available Not Available L-Lysine 500 mg tablet take 1 tablet by oral route daily 06/24 completed L-Lysine 500 mg oral tablet;R ecorded Status: Recorded on: 03/02/20 10 10:09AM; Disconti nued Status: Disconti nued on: 06/24/20 10 11:23AM; User: sen ruiz Not Available Not Available Not Available Topamax 25 mg tablet 2 tabs in the AM 2 tabs in the PM 11/18 completed Topamax 25 mg oral tablet;R ecorded Status: Recorded on: 06/07/20 16 11:20AM; User: Dewey nted: 06/07/20 16 Not Available Not Available Not Available azithromy jana 250 mg tablet take 2 tablets (500 mg) by oral route once daily for 1 day then 1 tablet (250 mg) by oral route once daily for 4 days 04/03 completed Not Available Not Available Not Available ibuprofen 800 mg tablet Take 1 tablet 3 times a day by oral route. 08/01 completed Not Available Not Available Not Available alprazola m 1 mg tablet take 1 tablet (1 mg) by oral route 3 times per day 06/11 completed alprazol am 1 mg oral tablet;R ecorded Status: Recorded on: 04/04/20 15 10:01AM; Disconti nued Status: Disconti nued on: 06/11/20 15 10:13AM; User: [email or web address] Villanuevat ion: Anxiety - (05.3000 00) Not Available Not Available Not Available Lidocaine Viscous 2 % mucosal solution Take 5 mL every 3 hours by oral route as needed for 2 days. 12/25 completed Not Available Not Available Not Available amitripty line 75 mg tablet Take 1 tablet every day by oral route at bedtime for 30 days. 06/22 completed Not Available Not Available Not Available tizanidin e 4 mg tablet Take 1 tablet 4 times a day by oral route as needed for 30 days. 06/09 completed Not Available Not Available Not Available valacyclo vir 1 gram tablet Take 2 tablets every 12 hours by oral route for 1 day. 01/26 completed Not Available Not Available Not Available hydrocodo ne 5 mg-acetam inophen 325 mg tablet TAKE 1 TABLET BY MOUTH EVERY 6 TO 8 HOURS NEEDED 06/09 completed Not Available Not Available Not Available Keflex 500 mg capsule take 1 capsule (500 mg) by oral route every 6 hours for 10 days 12/30 completed Not Available Not Available Not Available metronida zole 0.75 % (37.5 mg/5 gram) vaginal gel insert 1 applicat orful (37.5 mg) by vaginal route once daily at bedtime x's 7 days 12/16 completed metronid azole 0.75 % vaginal gel;Trav rded Status: Recorded on: 08/05/20 08 9:28AM;D iscontin ued Status: Disconti nued on: 12/16/19 09 11:02AM; User: filippo Johnson on: 08/12/20 08;Indic ation: Bacteria l Vaginosi s - (10.6169 00);Prin samara: 08/05/20 08 Not Available Not Available Not Available ondansetr on HCl 4 mg tablet 01/12 completed Not Available Not Available Not Available prednison e 20 mg tablet Take 2 tablets every day by oral route for 5 days. 01/02 completed Not Available Not Available Not Available Doc-Q-Lac e 100 mg capsule take 1 capsule (100 mg) by oral route twice daily 12/18 completed Doc-Q-La ce 100 mg oral capsule; Prescrib e Status: Prescrib ed on: 10/09/20 13 2:18PM;D iscontin ued Status: Disconti nued on: 12/18/19 14 12:53PM; User: markesbe ryh;Est. Completi on: 11/08/19 14;Pharm acRoberto ied: 10/09/20 13 2:18PM Not Available Not Available Not Available Pyridium 200 mg tablet take 1 tablet (200 mg) by oral route 3 times per day after meals for 3 days 06/23 completed Pyridium 200 mg oral tablet;R ecorded Status: Recorded on: 06/11/20 15 10:43AM; Disconti nued Status: Disconti nued on: 06/23/20 15 4:40PM;U ser: [email or web address]; Est. Completi on: 06/14/20 15;Indic ation: Urinary Tract Irritati on - ();Prin samara: 06/11/20 Not Available Not Available Not Available clindamyc in HCl 150 mg capsule Take 3 capsules 3 times a day by oral route for 7 days. 12/25 completed Not Available Not Available Not Available Diflucan 150 mg tablet take 1 tablet (150 mg) by oral route once after antibiot ics 01/02 completed Not Available Not Available Not Available venlafaxi ne ER 150 mg capsule,e xtended release 24 hr take 1 capsule (150 mg) by oral route twoce daily with food 05/08 completed venlafax ine 150 mg oral capsule, extended release 24hr;Pre scribe Status: Prescrib ed on: 04/05/20 13 12:00AM; Disconti nued Status: Disconti nued on: 05/08/20 13 10:02AM; User: feng moreno;Est. Completi on: 05/05/20 13;Indic ation: Generali zed Anxiety Disorder - ();Phar macyVeri fied: 04/05/20 13 3:01PM Not Available Not Available Not Available sumatript an 50 mg tablet TAKE 1 TABLET BY MOUTH AT ONSET OF HEADACHE . IF HEADACHE PERSIST OR RETURN, MAY REPEAT A DOSE OF ONE TABLET AT OR AFTER TWO (2) HOURS. DO NOT TAKE MORE THAN TWO (2) TABLETS PER 24 HOURS 02/02 completed Not Available Not Available Not Available Vicodin HP 10 mg-660 mg tablet take 1 tablet by oral route every 4-6 hours as needed for pain 05/08 completed Vicodin HP 10-660 mg oral tablet;R ecorded Status: Recorded on: 12/07/19 13 1:25PM;D iscontin ued Status: Disconti nued on: 05/08/20 13 10:02AM; User: [email or web address] Andrew ion: Pain - (07.7809 00) Not Available Not Available Not Available hydroxyzi ne pamoate 50 mg capsule take 1 capsule by oral route 3 times a day as needed for 30 days 06/11 completed hydroxyz ine pamoate 50 mg oral capsule; Recorded Status: Recorded on: 05/07/20 15 3:50PM;D iscontin ued Status: Disconti nued on: 06/11/20 15 10:13AM; User: johnathan Johnson on: 06/06/20 15;Indic ation: Pruritus of Skin - (57.7997 00);Prin samara: 05/07/20 15 Not Available Not Available Not Available Vitamin B-12 500 mcg tablet take 1 tablet by oral route daily 06/24 completed Vitamin B-12 500 mcg oral tablet;R ecorded Status: Recorded on: 03/02/20 10 10:09AM; Disconti nued Status: Disconti nued on: 06/24/20 10 11:23AM; User: sen Velasco tion: Vitamin B12 Deficien cy - (03.2662 03) Not Available Not Available Not Available hydroxyzi ne HCl 50 mg tablet TAKE ONE (1) TABLET BY MOUTH EVERY NIGHT AT BEDTIME NEEDED active Not Available Not Available No t Available phentermi ne 37.5 mg tablet TAKE ONE (1) TABLET EVERY DAY BY ORAL ROUTE FOR 30 DAYS. active Not Available Not Available No t Available clopidogr el 75 mg tablet TAKE 1 TABLET BY MOUTH EVERY DAY active Not Available Not Available No t Available prochlorp erazine maleate 10 mg tablet TAKE (1) TABLET EVERY EIGHT HOURS NEEDED FOR MIGRAINE 10/09 completed Not Available Not Available Not Available acyclovir 400 mg tablet Take 1 Tablet by mouth twice daily. active Not Available Not Available No t Available estradiol 0.05 mg/24 hr semiweekl y transderm al patch Apply 1 patch twice a week by transder mal route as directed for 30 days. 03/14 completed Not Available Not Available Not Available Ciloxan 0.3 % eye drops instill 2 drops into right eye by ophthalm ic route every 4 hours around the clock for 12 days 03/03 completed Ciloxan 0.3 % ophthalm ic drops;Pr escribe Status: Prescrib ed on: 01/28/20 15 6:20PM;D iscontin ued Status: Disconti nued on: 03/03/20 15 5:13PM;U ser: jaime ar;Est. Completi on: 02/09/20 15;Indic ation: Corneal Abrasion - (918.1); Pharmacy Verified : 01/28/20 15 6:20PM Not Available Not Available Not Available Tamiflu 75 mg capsule take 1 capsule (75 mg) by oral route 2 times per day for 5 days 03/02 completed Tamiflu 75 mg oral capsule; Recorded Status: Recorded on: 09/08/20 09 5:26PM;D iscontin ued Status: Disconti nued on: 03/02/20 10 10:09AM; User: cassie ;Est. Completi on: 09/13/20 09;Indic ation: Influenz a - (4871 00);Prin samara: 09/08/20 09 Not Available Not Available Not Available folic acid 400 mcg tablet take 1 tablet (0.4 mg) by oral route once daily 06/24 completed folic acid 400 mcg oral tablet;R ecorded Status: Recorded on: 03/02/20 10 10:09AM; Disconti nued Status: Disconti nued on: 06/24/20 10 11:23AM; User: sen ruiz;Indica tion: Folate Deficien cy - (2662 ) Not Available Not Available Not Available hydrocodo ne 10 mg-acetam inophen 325 mg tablet 1 po q 6 hours prn 11/18 completed Not Available Not Available Not Available aspirin 81 mg tablet,de layed release take 1 tablet (81 mg) by oral route once daily for 30 days 10/09 completed Not Available Not Available Not Available tramadol 50 mg tablet take 2 tablets (100 mg) by oral route every 6 hours as needed for 30 days 10/09 completed Not Available Not Available Not Available quetiapin e 100 mg tablet TAKE ONE (1) TABLET TWICE DAILY 10/09 completed Not Available Not Available Not Available amitripty line 50 mg tablet 1 tablet at bedtime 12/22 completed Not Available Not Available Not Available acetamino phen 500 mg tablet TAKE ONE (1) TABLET EVERY SIX (6) HOURS BY MOUTH NEEDED. active Not Available Not Available No t Available ketorolac 30 mg/mL (1 mL) injection solution Inject 30 mg by intramus cular route for 1 day. 11/16 completed Not Available Not Available Not Available butalbita l-acetami nophen-ca ffeine 50 mg-325 mg-40 mg tablet 11/18 completed Not Available Not Available Not Available oxycodone 15 mg tablet take 1 tablet (15 mg) by oral route every 6 hours 12/07 completed oxycodon e 15 mg oral tablet;R ecorded Status: Recorded on: 11/09/19 13 1:31PM;D iscontin ued Status: Disconti nued on: 12/07/19 13 1:25PM;U ser: [email or web address];I ndicatio n: Pain - (16.7809 00) Not Available Not Available Not Available Bentyl 20 mg tablet take 1 tablet (20 mg) by oral route 4 times per day for 7 days 12/18 completed Bentyl 20 mg oral tablet;P rescribe Status: Prescrib ed on: 10/25/20 13 2:31PM;D iscontin ued Status: Disconti nued on: 12/18/19 14 12:53PM; User: dominique henderson;Est. Completi on: 11/01/20 13;Pharm acyVerif ied: 10/25/20 13 2:31PM;P rinted: 10/25/20 13 Not Available Not Available Not Available terbinafi ne HCl 250 mg tablet Take 1 tablet every day by oral route for 30 days. 10/09 completed Not Available Not Available Not Available ceftriaxo ne 1 gram solution for injection Take 1 g by injectio n route for 1 day. 04/03 completed Not Available Not Available Not Available amoxicill in 875 mg tablet take 1 tablet (875 mg) by oral route every 12 hours for 10 days 05/03 completed amoxicil sanjay 875 mg oral tablet;R ecorded Status: Recorded on: 03/05/20 13 3:35PM;D iscontin ued Status: Disconti nued on: 05/03/20 13 4:43PM;U ser: dyerc;Es t. Completi on: 03/15/20 13;Print ed: 03/05/20 13 Not Available Not Available Not Available Vitamin D3 10 mcg (400 unit) tablet TAKE TWO TABLETS EVERY DAY BY ORAL ROUTE. STOP TAKING VITAMIN D3 1250 MCG (50 000 UNITS) 07/25 completed Not Available Not Available Not Available famotidin e 20 mg tablet TAKE ONE (1) TABLET TWICE DAILY active Not Available Not Available No t Available amitripty line 25 mg tablet take 1 tablet (25 mg) by oral route once daily at bedtime for 30 days 03/04 completed amitript yline 25 mg oral tablet;R ecorded Status: Recorded on: 02/16/20 16 10:29AM; Disconti nued Status: Disconti nued on: 03/04/20 16 11:11AM; User: remedios Johnson on: 03/17/20 16;Print ed: 02/16/20 16 Not Available Not Available Not Available Denavir 1 % topical cream apply to the affected area(s) by topical route every 2 hours during waking hours 08/04 completed Denavir 1 % topical cream;Re corded Status: Recorded on: 06/11/20 15 10:43AM; Disconti nued Status: Disconti nued on: 08/04/20 15 1:44PM;U ser: [email or web address]; Indicati on: Herpes Labialis - ();Prin samara: 06/11/20 15 Not Available Not Available Not Available estradiol 1 mg tablet take 1 tablet (1 mg) by oral route once daily 08/17 completed estradio l 1 mg oral tablet;R ecorded Status: Recorded on: 03/02/20 12 10:34AM; Disconti nued Status: Disconti nued on: 08/17/20 12 3:03PM;U ser: [email or web address] Not Available Not Available Not Available Klonopin 0.5 mg tablet take 1 tablet (0.5 mg) by oral route 2 times per day for 30 days 12/04 completed Klonopin 0.5 mg oral tablet;R ecorded Status: Recorded on: 08/04/20 15 2:34PM;D iscontin ued Status: Disconti nued on: 12/04/19 16 2:39PM;U ser: [email or web address]; Est. Completi on: 09/03/20 15;Indic ation: Panic Disorder - (053000 10);Prin samara: 08/04/20 15 Not Available Not Available Not Available Zoloft 50 mg tablet take 1 tablet (50 mg) by oral route once daily for 30 days 12/07 completed Zoloft 50 mg oral tablet;R ecorded Status: Recorded on: 11/09/19 13 2:02PM;D iscontin ued Status: Disconti nued on: 12/07/19 13 1:25PM;U ser: [email or web address]; Est. Completi on: 12/09/19 13;Print ed: 11/09/19 13 Not Available Not Available Not Available Imodium A-D 2 mg tablet take 2 tablets (4 mg) by oral route after 1st loose stool and 1 tablet (2 mg) after each next bowel movement ; do not exceed 16 mg in 24hrs 05/08 completed Imodium A-D 2 mg oral tablet;P rescribe Status: Prescrib ed on: 04/10/20 13 9:45AM;D iscontin ued Status: Disconti nued on: 05/08/20 13 10:02AM; User: fairchil dm;Indic ation: Diarrhea - (787.91) ;Pharmac yVerifie d: 04/10/20 13 9:45AM Not Available Not Available Not Available malathion 0.5 % lotion 03/31 completed Not Available Not Available Not Available oxycodone -acetamin ophen 10 mg-325 mg tablet Take 1 tablet twice a day by oral route as needed for 30 days. 12/25 completed Not Available Not Available Not Available gabapenti n 800 mg tablet take 1 tablet (800 mg) by oral route 3 times per day 2015 completed gabapent in 800 mg oral tablet;R ecorded Status: Recorded on: 12/04/19 16 2:39PM;D iscontin ued Status: Disconti nued on: 01/05/20 16 3:08PM;U ser: [email or web address] Not Available Not Available Not Available diltiazem ER 120 mg capsule,2 4 hr,extend ed release TAKE 1 CAPSULE BY MOUTH EVERY DAY 02/02 completed Not Available Not Available Not Available amitripty line 10 mg tablet Take one tablet by mouth at bedtime 07/17 completed amitript yline 10 mg oral tablet;c omment: changed by pain clinic;R ecorded Status: Recorded on: 05/27/20 14 4:48PM;D iscontin ued Status: Disconti nued on: 07/17/20 14 1:44PM;U ser: dominique henderson;Est. Completi on: 07/26/20 14 Not Available Not Available Not Available Flagyl 500 mg tablet take 1 tablet (500 mg) by oral route every 12 hours for 7 days for both 01/10 completed Flagyl 500 mg oral tablet;R ecorded Status: Recorded on: 12/16/19 09 11:45AM; Disconti nued Status: Disconti nued on: 01/11/20 09 9:46AM;U ser: webbg;Es t. Completi on: 12/23/19 09;Indic ation: Bacteria l Vaginosi s - (10.6169 00) Not Available Not Available Not Available Proctozon e-HC 2.5 % topical cream perineal applicato r APPLY A THIN LAYER TO THE AFFECTED AREA(S) BY TOPICAL ROUTE 2-4 TIMESDAI LY 07/07 completed Not Available Not Available Not Available hydrocodo ne 7.5 mg-acetam inophen 325 mg tablet 1 tablet every 8hrs prn 10/18 completed Not Available Not Available Not Available paroxetin e 20 mg tablet TAKE ONE (1) TABLET EVERY DAY BY MOUTH active Not Available Not Available No t Available acyclovir 5 % topical ointment APPLY TO THE AFFECTED AREA(S) BY TOPICAL ROUTE EVERY 3 HOURS 6 TIMES PER DAY 10/10 completed Not Available Not Available Not Available cyanocoba cherelle (vit B-12) 1,000 mcg/mL injection solution Inject 1 mL every month by subcutan eous route. 2022 active Not Available Not Available Not Avai lable trazodone 150 mg tablet 1 tablet at bedtime 07/07 completed trazodon e 150 mg oral tablet;R ecorded Status: Recorded on: 06/07/20 16 11:20AM; User: Gage Johnson on: 07/07/20 16;Print ed: 06/07/20 16 Not Available Not Available Not Available Prozac 20 mg capsule Take 1 capsule every day by oral route as directed for 30 days. 07/07 completed nausea Not Available Not Available Not Available Cipro 500 mg tablet take 1 tablet (500 mg) by oral route 2 times per day for 7 days 08/04 completed Cipro 500 mg oral tablet;R ecorded Status: Recorded on: 06/23/20 15 5:35PM;D iscontin ued Status: Disconti nued on: 08/04/20 15 1:44PM;U ser: johnathan Est. Completi on: 06/30/20 15;Print ed: 06/23/20 15 Not Available Not Available Not Available Robaxin-7 50 750 mg tablet 07/17 completed Robaxin- 750 750 mg oral tablet;R ecorded Status: Recorded on: 04/10/20 14 4:17PM;D iscontin ued Status: Disconti nued on: 07/17/20 14 1:44PM;U ser: [email or web address] Not Available Not Available Not Available Guaifenes in AC 10 mg-100 mg/5 mL oral liquid take 10 millilit ers by oral route every 6 hours PRN 06/29 completed Guaifene sin AC 10-100 mg/5 mL oral liquid;R ecorded Status: Recorded on: 11/16/19 11 2:09PM;D iscontin ued Status: Disconti nued on: 06/29/20 11 6:54PM;U ser: david Andrew ion: Cough - (16.7862 00);Prin samara: 11/16/19 11 Not Available Not Available Not Available divalproe x ER 500 mg tablet,ex tended release 24 hr take 1 tablet (500 mg) by oral route once daily for 30 days 12/22 completed Not Available Not Available Not Available promethaz ine 25 mg tablet take 1 tablet by oral route 3 times a day as needed for n/v 12/14 completed prometha zine 25 mg oral tablet;R ecorded Status: Recorded on: 12/06/19 12 4:48PM;D iscontin ued Status: Disconti nued on: 12/14/19 12 10:01AM; User: david ;Printed : 12/06/19 12 Not Available Not Available Not Available orphenadr ine citrate ER 100 mg tablet,ex tended release TAKE ONE (1) TABLET DAILY 07/30 completed Not Available Not Available Not Available hydrochlo rothiazid e 12.5 mg capsule Take 1 capsule every day by oral route for 30 days. 04/03 completed Not Available Not Available Not Available niacin 500 mg tablet take 1 tablet by oral route daily 06/24 completed niacin 500 mg oral tablet;R ecorded Status: Recorded on: 03/02/20 10 10:09AM; Disconti nued Status: Disconti nued on: 06/24/20 10 11:23AM; User: sen ruiz Not Available Not Available Not Available gabapenti n 300 mg capsule take 1 capsule (300 mg) by oral route 3 times per day for 30 days 07/17 completed gabapent in 300 mg oral capsule; comment: changes by pain clinic;P rescribe Status: Prescrib ed on: 10/24/20 13 4:27PM;D iscontin ued Status: Disconti nued on: 07/17/20 14 1:44PM;U ser: dominique Johnson on: 02/20/20 14;Pharm acRoberto ied: 10/24/20 13 4:27PM Not Available Not Available Not Available omeprazol e 20 mg capsule,d elayed release take 1 capsule by oral route 2 times a day 08/17 completed omeprazo le 20 mg oral capsule, delayed release( DR/EC);R ecorded Status: Recorded on: 12/06/19 12 4:50PM;D iscontin ued Status: Disconti nued on: 08/17/20 12 3:03PM;U ser: [email or web address] ;Printed : 12/06/19 12 Not Available Not Available Not Available Nix Creme Rinse 1 % topical liquid apply once and allow to remain on hair for 10 minutes before rinsing off with water; repeat in 1 week 03/31 completed Not Available Not Available Not Available diltiazem CD 120 mg capsule,e xtended release 24 hr Take 1 Capsule by mouth once daily. active Not Available Not Available No t Available bumetanid e 1 mg tablet take 1 tablet (1 mg) by oral route once daily for 30 days 07/07 completed bumetani de 1 mg oral tablet;R ecorded Status: Recorded on: 06/07/20 16 11:20AM; User: chandrakantEst . Completi on: 07/07/20 16;Print ed: 06/07/20 16 Not Available Not Available Not Available Cortispor in 3.5 mg/mL-10, 000 unit/mL-1 % ear solution instill 4 drops into right ear by otic route 3 times per day for 10 days 03/05 completed Cortispo rin 3.5-10,0 00-1 mg/mL-un it/mL-% otic solution ;Recorde d Status: Recorded on: 12/14/19 13 5:56PM;D iscontin ued Status: Disconti nued on: 03/05/20 13 3:18PM;U ser: Hainline T;Est. Completi on: 12/24/19 13;Indic ation: Otitis Externa - (063801 00);Prin samara: 12/14/19 13 Not Available Not Available Not Available hydrocort isone 2.5 % topical cream APPLY A THIN LAYER TO THE AFFECTED AREA(S) BY TOPICAL ROUTE 2 TIMES PER DAY 06/22 completed Not Available Not Available Not Available Valtrex 500 mg tablet take 1 tablet (500 mg) by oral route once daily for 3 days 11/16 completed Valtrex 500 mg oral tablet;R ecorded Status: Recorded on: 06/24/20 10 12:08PM; Disconti nued Status: Disconti nued on: 11/16/19 11 1:37PM;U ser: webbg;Es t. 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 Completi on: 02/20/20 14;Pharm acyVerif ied: 10/22/20 13 1:31PM Not Available Not Available Not Available mupirocin 2 % topical ointment APPLY A SMALL AMOUNT TO THE AFFECTED AREA BY TOPICAL ROUTE THREE (3) TIMES PER DAY active Not Available Not Available No t Available zolpidem 5 mg tablet TAKE ONE (1) TABLET EVERY DAY BY ORAL ROUTE FOR 30 DAYS. active Not Available Not Available No t Available Levaquin 500 mg tablet take 1 tablet (500 mg) by oral route once daily for 10 days 03/03 completed Levaquin 500 mg oral tablet;R ecorded Status: Recorded on: 01/09/20 15 9:38AM;D iscontin ued Status: Disconti nued on: 03/03/20 15 5:13PM;U ser: kevin; Est. Completi on: 01/19/20 15;Print ed: 01/09/20 15 Not Available Not Available Not Available mirtazapi ne 15 mg tablet daily 10/09 completed Not Available Not Available Not Available metoprolo l succinate ER 25 mg tablet,ex tended release 24 hr Take 1 Tablet by mouth once daily. active Not Available Not Available No t Available ergocalci ferol (vitamin D2) 1,250 mcg (50,000 unit) capsule TAKE ONE (1) CAPSULE ONCE WEEKLY FOR 12 WEEKS 05/28 completed Not Available Not Available Not Available Nasonex 50 mcg/actua tion [place] inhale 2 sprays in each nostril by intranas al route once daily for 30 days 03/02 completed Nasonex 50 mcg/actu ation nasal spray,no n-aeroso l;Record ed Status: Recorded on: 09/19/20 09 9:23AM;D iscontin ued Status: Disconti nued on: 03/02/20 10 10:09AM; User: mo; Est. Completi on: 01/18/20 10;Print ed: 09/19/20 09 Not Available Not Available Not Available ibuprofen 600 mg tablet TAKE ONE (1) TABLET THREE TIMES DAILY 08/01 completed Not Available Not Available Not Available polyethyl billie glycol 3350 17 gram/dose oral powder Take 17 g twice a day by oral route. 10/09 completed Not Available Not Available Not Available oxycodone -acetamin ophen 7.5 mg-325 mg tablet 10/18 completed Not Available Not Available Not Available zolpidem 10 mg tablet take 1 tablet (10 mg) by oral route once daily at bedtime for 30 days 10/09 completed Not Available Not Available Not Available methylpre dnisolone 4 mg tablets in a dose pack TAKE DIRECTED PER PACKAGE INSTRUCT IONS 02/02 completed Not Available Not Available Not Available SSD 1 % topical cream APPLY TO AFFECTED AREA ONCE DAILY 07/28 completed Not Available Not Available Not Available ketorolac 60 mg/2 mL intramusc ular solution toradol 60 mg IM 08/14 completed Not Available Not Available Not Available ondansetr on 4 mg disintegr ating tablet DISSOLVE ONE (1) TABLET ON TONGUE EVERY 8 HOURS NEEDED FOR 10 DAYS 08/01 completed Not Available Not Available Not Available cefdinir 300 mg capsule take 1 capsule (300 mg) by oral route every 12 hours for 10 days 01/02 completed Not Available Not Available Not Available topiramat e 100 mg tablet TAKE ONE (1) TABLET TWICE DAILY 10/09 completed Not Available Not Available Not Available vitamin E 800 unit capsule take 1 capsule by oral route 2 times a day 06/24 completed vitamin E 800 unit oral capsule; Recorded Status: Recorded on: 03/02/20 10 10:09AM; Disconti nued Status: Disconti nued on: 06/24/20 10 11:23AM; User: sen ruiz Not Available Not Available Not Available fluticaso ne propionat e 50 mcg/actua tion nasal spray,daniel pension SPRAY 2 SPRAYS INTO EACH NOSTRIL ONCE DAILY 03/14 completed Not Available Not Available Not Available pseudoeph edrine 60 mg tablet take 1 tablet (60 mg) by oral route every 6 hours as needed 03/03 completed pseudoep hedrine HCl 60 mg oral tablet;R ecorded Status: Recorded on: 01/09/20 15 9:38AM;D iscontin ued Status: Disconti nued on: 03/03/20 15 5:13PM;U ser: [email or web address]; Printed: 01/09/20 15 Not Available Not Available Not Available cholecalc iferol (vitamin D3) 125 mcg (5,000 unit) capsule Take 1 capsule every day by oral route as directed for 30 days. 10/09 completed Not Available Not Available Not Available Lortab 5 mg-500 mg tablet 1-2 tablets 6-8 hrs 09/17 completed Lortab 5-500 mg oral tablet;R ecorded Status: Recorded on: 06/29/20 11 6:54PM;D iscontin ued Status: Disconti nued on: 09/17/20 11 9:22AM;U ser: [email or web address] Not Available Not Available Not Available loratadin e 10 mg tablet take 1 tablet (10 mg) by oral route once daily for 30 days 03/14 completed Not Available Not Available Not Available Acidophil us capsule take 1 capsule by oral route daily 06/24 completed Acidophi delon Oral Capsule; Recorded Status: Recorded on: 03/02/20 10 10:09AM; Disconti nued Status: Disconti nued on: 06/24/20 10 11:23AM; User: sen ruiz Not Available Not Available Not Available ferrous sulfate 134 mg (27 mg iron) tablet Take 1 tablet every day by oral route as directed for 30 days. 10/09 completed Not Available Not Available Not Available cholecalc iferol (vitamin D3) 25 mcg (1,000 unit) capsule Take one capsule every day by oral route. Stop Vitamin D3 10 mcg (400 unit) 2022 active Not Available Not Available Not Avai lable Bactrim DS 800 mg-160 mg tablet take 1 tablet by oral route every 12 hours for 7 days 12/04 completed Bactrim DS 800-160 mg oral tablet;R ecorded Status: Recorded on: 11/05/20 15 8:59AM;D iscontin ued Status: Disconti nued on: 12/04/19 16 2:39PM;U ser: remedios ;Est. Completi on: 11/12/19 16;Print ed: 11/05/20 15 Not Available Not Available Not Available Vitamin B12 500 mcg tablet nasal spray 12/16 completed Replaced /Retired Drug 500 mcg oral tablet;R ecorded Status: Recorded on: 07/28/20 08 10:33PM; Disconti nued Status: Disconti nued on: 12/16/19 09 11:02AM; User: ebonie Not Available Not Available Not Available Wellbutri n SR 200 mg tablet, 12 hr sustained -release take 1 tablet (200 mg) by oral route every day 04/04 completed Wellbutr in SR 200 mg oral tablet extended release; Recorded Status: Recorded on: 03/03/20 15 5:43PM;D iscontin ued Status: Disconti nued on: 04/04/20 15 10:01AM; User: kevin; Est. Completi on: 06/01/20 15;Print ed: 03/03/20 15 Not Available Not Available Not Available Mucinex 600 mg tablet, extended release take 1 - 2 tablets by oral route every 12 hours as needed 03/12 completed Mucinex 600 mg oral tablet extended release 12hr;Rec orded Status: Recorded on: 03/03/20 15 5:43PM;D iscontin ued Status: Disconti nued on: 03/12/20 15 11:03AM; User: kevin; Printed: 03/03/20 15 Not Available Not Available Not Available metaxalon e 800 mg tablet TAKE ONE (1) TABLET THREE (3) TIMES DAILY NEEDED 05/25 completed Not Available Not Available Not Available aripipraz ole 10 mg tablet 12/22 completed Not Available Not Available Not Available aripipraz ole 15 mg tablet TAKE ONE (1) TABLET AT BEDTIME 10/09 completed Not Available Not Available Not Available cyclobenz aprine 5 mg tablet TAKE ONE (1) TABLET THREE (3) TIMES A DAY BY MOUTH 04/26 completed Not Available Not Available Not Available Premarin 0.625 mg/gram vaginal cream use as directed 12/07 completed Premarin 0.625 mg/gram vaginal cream;Re corded Status: Recorded on: 08/17/20 12 3:45PM;D iscontin ued Status: Disconti nued on: 12/07/19 13 1:25PM;U ser: webbg;Es t. 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 - (10.6273 00);Prin samara: 08/17/20 12 Not Available Not Available Not Available aripipraz ole 5 mg tablet 03/17 completed Not Available Not Available Not Available topiramat e 50 mg tablet TAKE 2 TABLETS TWICE DAILY 02/09 completed Not Available Not Available Not Available 19 29 mg-1 mg chewable tablet 1 po bid 04/04 completed Replaced /Retired Drug 29-1 mg oral tablet,arnulfo steward; Recorded Status: Recorded on: 07/28/20 08 10:33PM; Disconti nued Status: Disconti nued on: 04/04/20 09 11:52AM; User: maura Not Available Not Available Not Available 19 (with docusate) 29 mg-1 mg tablet 2 po daily 03/02 completed Replaced /Retired Drug 29-1 mg oral tablet;R ecorded Status: Recorded on: 04/15/20 09 3:45PM;D iscontin ued Status: Disconti nued on: 03/02/20 10 10:09AM; User: filippo EstHuong Completi on: 10/12/20 09;Print ed: 04/15/20 Not Available Not Available Not Available nitrofura ntoin monohydra te/macroc rystals 100 mg capsule TAKE ONE (1) CAPSULE BY MOUTH EVERY 12 HOURS FOR 7 DAYS active Not Available Not Available No t Available duloxetin e 30 mg capsule,d elayed release TAKE 1 CAPSULE BY MOUTH DAILY FOR 1 WEEK THEN 1 CAPSULE TWICE DAILY FOR REMAINDE R active Not Available Not Available No t Available duloxetin e 60 mg capsule,d elayed release TAKE 1 CAPSULE BY MOUTH EVERY DAY 05/25 completed Not Available Not Available Not Available Zanaflex 4 mg capsule Take 1 capsule every 6 hours by oral route for 30 days. 01/12 completed Not Available Not Available Not Available Lyrica 50 mg capsule take 1 capsule (50 mg) by oral route 3 times per day for 30 days 09/04 completed Lyrica 50 mg oral capsule; Recorded Status: Recorded on: 08/04/20 15 3:04PM;D iscontin ued Status: Disconti nued on: 09/04/20 15 12:23PM; User: johnathan EstHuong Completi on: 09/03/20 15;Print ed: 08/04/20 15 Not Available Not Available Not Available Lyrica 75 mg capsule 1 po tid 03/04 completed Lyrica 75 mg oral capsule; Recorded Status: Recorded on: 02/02/20 16 3:18PM;D iscontin ued Status: Disconti nued on: 03/04/20 16 10:51AM; User: lora RangelEst. Completi on: 03/03/20 16;Print ed: 02/02/20 16 Not Available Not Available Not Available Mucinex D 60 mg-600 mg tablet,ex tended release take 1 tablet by oral route 2 times a day for 10 days 09/11 completed Mucinex D 60-600 mg oral tablet extended release 12 hr;Presc ribe Status: Prescrib ed on: 08/29/20 13 3:23PM;D iscontin ued Status: Disconti nued on: 09/11/20 13 1:41PM;U ser: gored;Es t. Completi on: 09/08/20 13;Pharm acyVerif ied: 08/29/20 13 3:23PM Not Available Not Available Not Available acyclovir 01/10 completed Acyclovi r Oral;Rec orded Status: Recorded on: 01/11/20 09 9:46AM;D iscontin ued Status: Disconti nued on: 01/11/20 09 10:20AM; User: [email or web address] Not Available Not Available Not Available zinc daily 06/24 completed zinc;Rec orded Status: Recorded on: 06/10/20 09 2:17PM;D iscontin ued Status: Disconti nued on: 06/24/20 10 11:23AM; User: Navneet james n: - (-5) Not Available Not Available Not Available biotin daily 06/24 completed biotin;R ecorded Status: Recorded on: 06/10/20 09 2:17PM;D iscontin ued Status: Disconti nued on: 06/24/20 10 11:23AM; User: Navneet ndicatio n: - (-5) Not Available Not Available Not Available Seroquel bid 02/01 completed Seroquel oral;Rec orded Status: Recorded on: 12/04/19 16 2:39PM;D iscontin ued Status: Disconti nued on: 02/02/20 16 3:18PM;U ser: [email or web address] Not Available Not Available Not Available amitripty line 05/27 completed amitript yline oral;Rec orded Status: Recorded on: 04/10/20 14 4:17PM;D iscontin ued Status: Disconti nued on: 05/27/20 14 4:48PM;U ser: [email or web address] Not Available Not Available Not Available Keflex 1 tid 03/03 completed keflex 500mg;Re corded Status: Recorded on: 12/30/19 15 12:19PM; Disconti nued Status: Disconti nued on: 03/03/20 15 5:13PM;U ser: [email or web address] ryh;Est. Completi on: 01/07/20 15;Indic ation: - (-5) Not Available Not Available Not Available Percocet 12/14 completed Percocet Oral;Rec orded Status: Recorded on: 11/15/19 12 11:51AM; Disconti nued Status: Disconti nued on: 12/14/19 12 10:01AM; User: lora Not Available Not Available Not Available Phenergan DM 1 tsp qid 03/03 completed phenerga n dm;Recor ded Status: Recorded on: 12/30/19 15 12:19PM; Disconti nued Status: Disconti nued on: 03/03/20 15 5:13PM;U ser: [email or web address] ryh;Est. Completi on: 01/10/20 15;Indic ation: - (-5) Not Available Not Available Not Available Iron (ferrous sulfate) daily otc. 06/22 completed Not Available Not Available Not Available Restoril 1 qhs 04/10 completed restoril 30mg;Rec orded Status: Recorded on: 04/08/20 14 2:44PM;D iscontin ued Status: Disconti nued on: 04/10/20 14 4:17PM;U ser: markesbe ryh;Est. Completi on: 04/28/20 14;Indic ation: - (-5) Not Available Not Available Not Available Flexeril 1 tids 08/29 completed flexeril 10mg;Rec orded Status: Recorded on: 07/02/20 13 1:36PM;D iscontin ued Status: Disconti nued on: 08/29/20 13 3:08PM;U ser: markesbe ryh;Est. Completi on: 08/01/20 13;Indic ation: - (-5) Not Available Not Available Not Available gabapenti n 1 tid 03/26 completed gabapent in 300mg;Re corded Status: Recorded on: 10/22/20 13 11:05AM; Disconti nued Status: Disconti nued on: 03/26/20 14 1:02PM;U ser: markesbe ryh;Est. Completi on: 02/20/20 14;Indic ation: - (-5) Not Available Not Available Not Available Zanaflex 1 tid 03/26 completed zanaflex 4mg;Trav rded Status: Recorded on: 10/22/20 13 11:05AM; Disconti nued Status: Disconti nued on: 03/26/20 14 1:02PM;U ser: markesbe ryh;Est. Completi on: 02/20/20 14;Indic ation: - (-5) Not Available Not Available Not Available Vitamin D3 10 mcg (400 unit) capsule Take two capsules every day by oral route. Stop taking Vitamin D3 1250 mcg (50,000 units) 07/25 completed Not Available Not Available Not Available aripipraz ole 10 mg disintegr ating tablet Take 1 tablet every day by oral route. 03/16 completed Not Available Not Available Not Available ProAir HFA 90 mcg/actua tion aerosol inhaler INHALE TWO (2) PUFFS EVERY FOUR (4) HOURS NEEDED active Not Available Not Available No t Available cholecalc iferol (vitamin D3) 25 mcg (1,000 unit) tablet TAKE ONE TABLET EVERY DAY BY MOUTH. STOP VITAMIN D3 10 MCG (400 UNIT) active Not Available Not Available No t Available Caltrate 600-D Plus Minerals 600 mg-10 mcg (400 unit) tablet take 1 tablet by oral route daily 06/24 completed Caltrate 600+D Plus Minerals 600 mg calcium- 400 unit oral tablet;R ecorded Status: Recorded on: 03/02/20 10 10:09AM; Disconti nued Status: Disconti nued on: 06/24/20 10 11:23AM; User: sen ruiz Not Available Not Available Not Available Alaway 0.025 % (0.035 %) eye drops instill 1 drop into affected eye(s) by ophthalm ic route 2 times per day 02/15 completed [place] 0.025 % (0.035 %) ophthalm ic drops;Re corded Status: Recorded on: 01/05/20 16 3:39PM;D iscontin ued Status: Disconti nued on: 02/16/20 16 10:04AM; User: remedios ;Printed : 01/05/20 16 Not Available Not Available Not Available Covaryx 1.25 mg-2.5 mg tablet take 1 tablet by oral route for 21 consecut samantha days, followed by 7 days off for 28 days 08/17 completed Covaryx 1.25-2.5 mg oral tablet;R ecorded Status: Recorded on: 12/14/19 12 10:01AM; Disconti nued Status: Disconti nued on: 08/17/20 12 3:03PM;U ser: [email or web address] Not Available Not Available Not Available peg 3350-elec trolytes 236 gram-22.7 4 gram-6.74 gram-5.86 gram solution USE DIRECTED 02/02 completed Not Available Not Available Not Available FeroSul 325 mg (65 mg iron) tablet TAKE ONE (1) TABLET TWICE A DAY BY MOUTH DIRECTED active Not Available Not Available No t Available diclofena c 1 % topical gel Apply 2 gm topicall y to the affected area(s) 4 times daily. 2023 active Not Available Not Available Not Avai lable Align (B. is) 4 mg capsule take 1 capsule by oral route daily for 30 days 05/08 completed Align 4 mg oral capsule; Recorded Status: Recorded on: 01/06/20 13 3:48PM;D iscontin ued Status: Disconti nued on: 05/08/20 13 10:02AM; User: Dagmar Levin;Est. Completi on: 06/04/20 13;Print ed: 01/06/20 13 Not Available Not Available Not Available melatonin 5 mg tablet Take 1 tablet every day by oral route at bedtime for 30 days. 03/14 completed Not Available Not Available Not Available Savella 12.5 mg (5)-25 mg(8)-50m g(42) tablets in a dose pack Take 1 startr pk by oral route. 01/12 completed Not Available Not Available Not Available Vitamin D3 25 mcg (1,000 unit) chewable tablet TAKE ONE CAPSULE EVERY DAY BY MOUTH . STOP VITAMIN D3 10 MCG (400 UNIT) active Not Available Not Available No t Available Senexon-S 8.6 mg-50 mg tablet take 2 tablets by oral route once daily for 30 days 10/09 completed Not Available Not Available Not Available Solu-Medr ol (PF) 125 mg/2 mL solution for injection Take 125 mg by injectio n route. 01/26 completed Not Available Not Available Not Available Vitamin D3 125 mcg (5,000 unit) tablet take 1 tablet by oral route daily for 30 days 03/14 completed Vitamin D3 5,000 unit oral tablet;R ecorded Status: Recorded on: 06/07/20 16 11:20AM; User: Gage Johnson on: 07/07/20 16;Print ed: 06/07/20 16 Not Available Not Available Not Available Duexis 800 mg-26.6 mg tablet Take 1 tablet twice a day by oral route as needed for 30 days. 06/29 completed Not Available Not Available Not Available Eucerin Intensive Repair lotion apply to affected area by topical route 2 times a day 06/11 completed Eucerin Intensiv e Repair topical lotion;R ecorded Status: Recorded on: 05/07/20 15 3:50PM;D iscontin ued Status: Disconti nued on: 06/11/20 15 10:13AM; User: kevin; Printed: 05/07/20 15 Not Available Not Available Not Available Fusion Plus 130 mg iron-1,25 0 mcg capsule take 1 capsule by oral route once daily between meals 07/17 completed Fusion Plus 130 mg iron -1,250 mcg oral capsule; Recorded Status: Recorded on: 04/10/20 14 4:17PM;D iscontin ued Status: Disconti nued on: 07/17/20 14 1:44PM;U ser: [email or web address] Not Available Not Available Not Available Fioricet 50 mg-300 mg-40 mg capsule take 1 - 2 capsules by oral route every 4 hours as needed not to exceed 6 capsules per 24hrs 03/04 completed Fioricet 50-300-4 0 mg oral capsule; Recorded Status: Recorded on: 02/02/20 16 3:18PM;D iscontin ued Status: Disconti nued on: 03/04/20 16 11:06AM; User: lora ;Printed : 02/02/20 16 Not Available Not Available Not Available Bupap 50 mg-300 mg tablet take 1 - 2 tablets by oral route every 4 hours as needed not to exceed 6 tablets per 24hrs for 15 days 09/04 completed Bupap 50-300 mg oral tablet;c omment: changed to Fioricet per Dr.McKai ruiz;Record ed Status: Recorded on: 09/04/20 15 12:23PM; Disconti nued Status: Disconti nued on: 09/04/20 15 2:34PM;U ser: tim [email or web address];Est. Completi on: 10/19/20 15;Print ed: 09/04/20 15 Not Available Not Available Not Available Contrave 8 mg-90 mg tablet,ex tended release TAKE 1 TAB IN THE AM FOR WEEK 1, 1 TWICE A DAY FOR WEEK 2, 2 IN THE AM & 1 IN PM FOR WEEK 3, 2 TABS TWICE DAILY AFTER active Not Available Not Available No t Available Belsomra 5 mg tablet take 1 tablet (5 mg) by oral route once per night within 30 minutes of bedtime. Take only if at least 7 hrs of bedtime remain before planned time of waking. 03/04 completed Belsomra 5 mg oral tablet;R ecorded Status: Recorded on: 02/16/20 16 10:29AM; Disconti nued Status: Disconti nued on: 03/04/20 16 11:11AM; User: [email or web address] ;Printed : 02/16/20 16 Not Available Not Available Not Available Vitals Date Recorded Body height Body mass index (BMI) Body weight Heart rate Oxygen saturation Oxygen saturation in Arterial blood by Pulse oximetry Respiratory rate Systolic blood pressure Diastolic blood pressure Provider Name and Address Organization Details Last Updated DateTime 3 167.64 cm 32.9 kg/m2 74915.8 4 g 64 /min 97 % 97 % 16 /min 118 mm[Hg] 64 mm[Hg] Juliann Cardona [place] - [facility] 3 15:39:14 Date Recorded Body height Body mass index (BMI) Body weight Oxygen saturation Oxygen saturation in Arterial blood by Pulse oximetry Respiratory rate Heart rate Systolic blood pressure Diastolic blood pressure Provider Name and Address Organization Details Last Updated DateTime 3 167.64 cm 33.4 kg/m2 54577.6 2 g 98 % 98 % 16 /min 70 /min 120 mm[Hg] 76 mm[Hg] Juliann Cardona [place] - [facility] 3 09:45:11 Date Recorded Body height Body mass index (BMI) Body weight Heart rate Oxygen saturation Oxygen saturation in Arterial blood by Pulse oximetry Respiratory rate Systolic blood pressure Diastolic blood pressure Provider Name and Address Organization Details Last Updated DateTime 3 167.64 cm 33.9 kg/m2 40090.4 g 88 /min 98 % 98 % 16 /min 134 mm[Hg] 74 mm[Hg] Juliann Cardona [place] - [facility] 3 13:55:42 Date Recorded Systolic blood pressure Diastolic blood pressure Provider Name and Address Organization Details Last Updated DateTime 07/22/2022 128 mm[Hg] 78 mm[Hg] Nilson Mejía [place] - [facility] 07/22/2022 09:27:32 Date Recorded Body height Body mass index (BMI) Body weight Body temperature Oxygen saturation Oxygen saturation in Arterial blood by Pulse oximetry Heart rate Respiratory rate Provider Name and Address Organization Details Last Updated DateTime 2 167.64 cm 32.9 kg/m2 06509.8 4 g 98.3 [degF] 98 % 98 % 68 /min 20 /min Liv Starr [place] - [facility] 2 08:43:38 Date Recorded Body height Body mass index (BMI) Body weight Body temperature Oxygen saturation Oxygen saturation in Arterial blood by Pulse oximetry Heart rate Respiratory rate Systolic blood pressure Diastolic blood pressure Provider Name and Address Organization Details Last Updated DateTime 2 167.64 cm 32.8 kg/m2 32926.6 5 g 98.1 [degF] 98 % 98 % 89 /min 18 /min 104 mm[Hg] 68 mm[Hg] Liv Starr [place] - [facility] 2 09:30:30 Social History Question Answer Notes LastModified by Organizat ion Details LastModified Time Tobacco Smoking Status Never Smoker Juliann lopez, [place] - [facility] 09/17/2016 16:44:16 Able To Swim? Yes Information not available 09/17/2016 Do You Have An Advance Directive? No Information not available 09/17/2016 Do You Wear A Helmet When Biking? No Information not available 01/12/2021 Are You Blind Or Do You Have Difficulty Seeing? No Information not available 01/12/2021 Is Blood Transfusion Acceptable In An Emergency? Yes Information not available 01/02/2020 What Is Your Level Of Caffeine Consumption? Moderate Information not available 09/17/2016 How Much Tobacco Do You Chew? None [email or web address] Information not available 11/18/2016 Are You Deaf Or Do You Have Serious Difficulty Hearing? No Information not available 01/12/2021 What Type Of Diet Are You Following? REGULAR Information not available 09/17/2016 Which Illicit Or Recreational Drugs Have You Used? No [email or web address] Information not available 11/18/2016 What Is The Highest Grade Or Level Of School You Have Completed Or The Highest Degree You Have Received? [id number] [email or web address] Information not available 05/25/2022 Swimming/diving No Informati on not available 09/17/2016 Have There Been Any Changes To Your Family Or Social Situation? No [email or web address] Information no t available 05/25/2022 Hard Of Hearing Or Deaf In One Or Both Ears? No Information not available 09/17/2016 Legally Blind In One Or Both Eyes? No Information no t available 09/17/2016 Live Alone Or With Others? With Others Information not available 09/17/2016 Do You Have A Medical Power Of Rfid Developer? No Information not available 05/25/2022 What Was The Date Of Your Most Recent Tobacco Screening? 08/18/2022 [email or web address] Information not available 08/18/2022 How Many Children Do You Have? 3 Information not available 09/17/2016 Performs Monthly Self-breast Exam? No [email or web address] Information no t available 03/31/2017 Do You Use Protection During Sex? No [email or web address] Information not available 11/18/2016 What Is Your Relationship Status? [email or web address] Information not available 11/18/2016 Seat Belts Used Routinely Yes Information not available 09/17/2016 Are You Sexually Active? No Information not available 01/12/2021 Smoke Alarm In Home Yes Information not available 09/17/2016 Do You Have Smoke And Carbon Monoxide Detectors In Your Home? Yes [email or web address] Information not available 05/25/2022 Are You Passively Exposed To Smoke? No [email or web address] Information no t available 11/18/2016 General Stress Level High Information not available 11/18/2016 Do You Use Sunscreen Routinely? No Information not available 09/17/2016 Has Tobacco Cessation Counseling Been Provided? No [email or web address] Information not available 05/25/2022 Do You Have Difficulty Walking Or Climbing Stairs? Yes Information not available 01/12/2021 Sex: Female Functional Status Question Answer Note LastModified by Organizat ion Details LastModified Time Do you use any illicit or recreational drugs? No [email or web address] Information not available 05/25/2022 Do you or have you ever used any other forms of tobacco or nicotine? No [email or web address] Information not available 05/25/2022 What is your level of alcohol consumption? None Information not available 09/17/2016 Are you currently employed? Yes Information not available 08/18/2022 Do you have transportation difficulties? No [email or web address] Information not available 05/25/2022 Urinary incontinence assessment performed? Yes Information not available 06/22/2018 Are you able to walk? [email or web address] Information not available 01/12/2021 Do you have difficulty doing errands alone? No Information not available 01/12/2021 Are you able to care for yourself? 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 No [email or web address] Information not available 01/12/2021 What is your exercise level? None Information not available 09/17/2016 Mental Status Question Answer Note LastModified by Organizat ion Details LastModified Time Do you feel stressed (tense, restless, nervous, or anxious, or unable to sleep at night)? [id number] [email or web address] Information not available 05/25/2022 Do you have difficulty concentrating, remembering or making decisions? [email or web address] Information no t available 01/12/2021 Family History Relationship Description Onset Age of this Age Resolved Age Notes LastModified by Organization Details LastModified Time Unspecified Relation Myocardial infarction [email or web address] Not available 01/12 09:13:01 Unspecified Relation Diabetes mellitus Not available 2015 16:43:56 Maternal Grandmother Leukemia [email or web address] Not available 01/12 09:13:01 Medical History Condition Response Pancreatitis N Coronary Artery Disease N Other N Gout N Atrial Fibrillation N congenital heart disease N Kidney Stones N Blood Diseases N Hyperthyroidism N Rheumatoid arthritis N Blood Transfusion N Erectile Dysfunction N amputation N Skin Lesions N Depression Y COPD N Pneumonia N Incontinence N Murmur N Edema N Alzheimer's Disease N Migraine Headaches N Tobacco Abuse N Anxiety Disorder N Muscle, Joint, or Bone Problems N Hemorrhoids N Obesity N Vision or Eye Problems N Restless Leg Syndrome N Arthritis N Polyps N Infertility N Mental Disorder N Carpal Tunnel N Acid Reflux (GERD) Y Cancer N Varicosities N Stroke N Tendonitis N Crohn's Disease N Hypercholesterolemia N Skin Cancer N Headaches N Fibromyalgia Y Irritable Bowel Syndrome Y Anal Fissure N Kidney Disease N Heart Problems N Ear or Hearing Problems N Hospitalizations N Gallstones N Kidney or Bladder Problems N Goiter N Acne N Skin Problems N Eating Disorder N Ordonez's Esophagus N Hypertriglyceridemia N MRSA exposure N Constipation N Embolism N Vitamin B12 Deficiency N Deviated Septum N Tuberculosis N AIDS/HIV N Myocardial Infarction N Asthma N Mitral Valve Disorders N Vertigo N Hepatitis N Thyroid Cancer N Neuropathy N Pulmonary Embolism N History of DVT N Herniated Disc N Chronic Ear Infections N Chicken Pox N Autism Spectrum Disorder (ASD) N Von Willebrands Disease N Thrombophilias N Breast Cancer N Hernia N Plantar Fasciitis N Hospital Admission Other Than N Lung Disease N Hypothyroidism N Defects or Inherited Disease N Developmental or Behavioral Disorders N Breast Problem N Difficulty Swallowing N Ovarian Cyst N Anesthesia Complications N Testosterone Deficiency N Meniere's disease N Head Injury/Concussion N Interstitial Cystitis N Congenital Anomalies N Hypoglycemia N Blood clot N Vitamin D Deficiency Y Cellulitis N Endometriosis N Bladder or Kidney Problems N Fracture N Liver Disease N Schizophrenia N Panic Disorder N Concussion N Spina Bifida N Allergies/Hayfever N Osteoarthritis N Parkinson's Disease N Disc Protrusion N STI N Esophagitis N Angina N Thyroid Problems N GI Problems N ADD/ADHD N Anemia N Multiple Sclerosis N Abnormal PAP N Lumbago N Mental Illness N Psychiatric Illness N Ovarian Cancer N Diabetes N Bedwetting N Degenerative Disc Disease N Seizures/Epilepsy N Congestive Heart Failure (CHF) N Syncope N Hyperlipidemia N Insomnia Y Eczema N Abuse/Domestic Violence N Attention Deficient Disorder N Dementia N Diverticulitis N Ulcerative colitis N Cerebrovascular Disease N Depression N Guillain-[place] N Sleep Apnea N Aneurysm N Bronchitis N Heart Disease N Suicidal Ideation N Pre-Eclampsia N Hypertension N Osteoporosis N Gynecological History Statement/Question Response Abnormal Pap N Date of Last Mammogram Date of LMP 11/07/2005 On BCP's at Conception? N STIs/STDs N HPV Vaccine N Current Control Method Tubal Ligat ion Age at Menarche 8 Age at First Child 18 Last Annual Exam/Provider 03/31/17 GW If Post Menopausal, Age at Menopause 33 Date of Last Colonoscopy Most Recent Bone Density Sexually Active? N Menses Monthly N Date of Last Pap Smear 08/18/2012 Sexual Problems? N LMP Desired Control Method Hysterectom y Obstetrics History GPAL:G 3 P 3 0 0 3 Type Value Multiple Births 0 Full Term 3 Induced 0 Spontaneous 0 Premature 0 Living 3 Ectopics 0 Total 3 Immunizations Vaccine Type Date Status Note Provider Kaz [email or web address] and Address Organization Details Recorded Time Hep A, adult 1 completed Magdalena lopez, [place] - [facility] 08/31/2021 12:35:37 Hep B, adult 1 completed PAUL [place] - [facility] 10/22/2021 13:14:17 Influenza, split virus, quadrivalent, preservative 8 completed Not Available [facility] [place] 11/24/2019 03:54:57 Past Encounters Encounter ID Performer Location Encounter Start Date Encounter Closed Date Diagnosis/Indication Diagnosis SNOMED-CT Code Diagnosis ICD10 Code Diagnosis Note [id number] [facility] [address] [place] [address] 08/05/2008 00:00:00 [id number] [facility] [address] [place] [address] 05/02/2008 00:00:00 [id number] [facility] [address] [place] [address] 05/03/2008 00:00:00 [id number] [facility] [address] [place] [address] 06/04/2008 00:00:00 [id number] [facility] [address] [place] [place] [address] 07/16/2008 00:00:00 [id number] [facility] [address] [address] 09/12/2008 00:00:00 [id number] [facility] [address] [place] [address] 12/16/2008 00:00:00 [id number] [facility] [address] [place] [address] 01/10/2009 00:00:00 [id number] [facility] [address] [address] 01/10/2009 00:00:00 [id number] [facility] [address] [address] 01/14/2009 00:00:00 [id number] [facility] [address] [address] 01/17/2009 00:00:00 [id number] [facility] [address] [address] 02/20/2009 00:00:00 [id number] [facility] [address] [address] 04/02/2009 00:00:00 [id number] [facility] [address] [address] 04/04/2009 00:00:00 [id number] [facility] [address] [address] 04/16/2009 00:00:00 [id number] [facility] [address] [address] 05/21/2009 00:00:00 [id number] [facility] [address] [address] 06/10/2009 00:00:00 [id number] [facility] [address] [address] 06/10/2009 00:00:00 [id number] [facility] [address] [address] 06/26/2009 00:00:00 [id number] [facility] [address] [address] 08/01/2009 00:00:00 [id number] [facility] [address] [place] [address] 08/08/2009 00:00:00 [id number] [facility] [address] [place] [address] 09/05/2009 00:00:00 [id number] [facility] [address] [place] [address] 09/08/2009 00:00:00 [id number] [facility] [address] [place] [address] 03/02/2010 00:00:00 [id number] [facility] [address] [address] 06/12/2010 00:00:00 [id number] [facility] [address] [place] [address] 06/24/2010 00:00:00 [id number] [facility] [address] [address] 04/09/2016 00:00:00 [id number] [facility] [address] [place] [address] 04/30/2016 00:00:00 [id number] [facility] [address] [place] [address] 12/07/2012 00:00:00 [id number] [facility] [address] [place] [address] 05/12/2016 00:00:00 [id number] [facility] [address] [place] [address] 12/14/2012 00:00:00 [id number] [facility] [address] [place] [address] 06/07/2016 00:00:00 [id number] [facility] [address] [place] [address] 11/16/2010 00:00:00 [id number] [facility] [address] [place] [address] 06/29/2011 00:00:00 [id number] [facility] [address] [place] [address] 09/17/2011 00:00:00 [id number] [facility] [address] [place] [address] 09/28/2011 00:00:00 [id number] [facility] [address] [place] [address] 10/04/2011 00:00:00 [id number] [facility] [address] [place] [address] 11/15/2011 00:00:00 [id number] [facility] [address] [place] [address] 12/06/2011 00:00:00 [id number] [facility] [address] [place] [address] 12/14/2011 00:00:00 [id number] [facility] [address] [place] [address] 03/02/2012 00:00:00 [id number] [facility] [address] [place] [address] 01/05/2016 00:00:00 [id number] [facility] [facility] [address] [place] [address] 08/17/2012 00:00:00 [id number] [facility] [address] [place] [address] 02/16/2016 00:00:00 [id number] [facility] [address] [place] [address] 09/01/2012 00:00:00 [id number] [facility] [address] [place] [address] 11/09/2012 00:00:00 [id number] [facility] [address] [place] [address] 11/29/2012 00:00:00 [id number] [facility] [address] [place] [address] 03/04/2016 00:00:00 [id number] [facility] [address] [place] [address] 12/06/2012 00:00:00 [id number] [facility] [address] [place] [address] 03/23/2016 00:00:00 [id number] [facility] [address] [place] [address] 01/05/2013 00:00:00 [id number] [facility] [address] [place] [address] 12/07/2012 00:00:00 [id number] [facility] [address] [address] 04/09/2016 00:00:00 [id number] [facility] [address] [place] [address] [address] 01/08/2013 00:00:00 [id number] [facility] [address] [place] [address] 5 03/05/2013 00:00:00 [id number] [facility] [address] [place] [address] 04/05/2013 00:00:00 [id number] [facility] [address] [place] [address] 07/26/2013 00:00:00 [id number] [facility] [address] [place] [address] 08/29/2013 00:00:00 [id number] [facility] [address] [place] [address] 04/10/2013 00:00:00 [id number] [facility] [address] [place] [address] 09/05/2013 00:00:00 [id number] [facility] [address] [place] [address] 5 09/11/2013 00:00:00 [id number] [facility] [address] [place] [address] 05/03/2013 00:00:00 [id number] [facility] [address] [place] [address] 09/12/2013 00:00:00 [id number] [facility] [address] [place] [address] 09/20/2013 00:00:00 [id number] [facility] [address] [place] [address] 05/08/2013 00:00:00 [id number] [facility] [address] [place] [address] [address] 09/25/2013 00:00:00 [id number] [facility] [address] [place] [address] 10/22/2013 00:00:00 [id number] [facility] [address] [place] [address] 05/25/2013 00:00:00 [id number] [facility] [address] [place] [address] 5 11/19/2013 00:00:00 [id number] [facility] [address] [address] 12/18/2013 00:00:00 [id number] [facility] [address] [place] [address] [address] 5 01/23/2014 00:00:00 [id number] [facility] [address] [place] [address] 07/02/2013 00:00:00 [id number] [facility] [address] [place] [address] 5 03/26/2014 00:00:00 [id number] [facility] [address] [address] 04/08/2014 00:00:00 [id number] [facility] [address] [address] 5 07/26/2013 00:00:00 [id number] [facility] [address] [place] [address] 04/09/2014 00:00:00 [id number] [facility] [address] [place] [address] 06/23/2015 00:00:00 [id number] [facility] [address] [address] 08/04/2015 00:00:00 [id number] [facility] [address] [address] 09/04/2015 00:00:00 [id number] [facility] [address] [address] 10/10/2015 00:00:00 [id number] [facility] [address] [address] 11/05/2015 00:00:00 [id number] [facility] [address] [place] [address] [address] 12/04/2015 00:00:00 [id number] [facility] [address] [address] 12/30/2014 00:00:00 [id number] [facility] [address] [address] 07/17/2014 00:00:00 [id number] [facility] [address] [address] 01/08/2015 00:00:00 [id number] [facility] [address] [place] [address] 5 07/26/2014 00:00:00 [id number] [facility] [address] [address] 08/01/2014 00:00:00 [id number] [facility] [address] [address] 5 11/12/2014 00:00:00 [id number] [facility] [address] [address] 01/27/2015 00:00:00 [id number] [facility] [address] [address] 5 03/03/2015 00:00:00 [id number] [facility] [address] [place] [address] 11/12/2014 00:00:00 [id number] [facility] [address] [place] [address] 12/30/2014 00:00:00 [id number] [facility] [address] [place] [address] 03/12/2015 00:00:00 [id number] [facility] [address] [place] [address] 04/04/2015 00:00:00 [id number] [facility] [address] [place] [address] 05/07/2015 00:00:00 [id number] [facility] [address] [place] [address] 06/11/2015 00:00:00 [id number] [facility] [address] [place] [address] 06/17/2015 00:00:00 [id number] [facility] [address] [place] [address] 04/10/2014 00:00:00 [id number] [facility] [address] [place] [address] 05/08/2014 00:00:00 [id number] [facility] [address] [place] [address] 07/17/2014 00:00:00 [id number] Bety Greene MD [facility] [address] [place] [address] 09/17/2016 16:25:36 09/17/2016 17:19:43 Irritable bowel syndrome 64394016 K58.9 Gastroesop hageal reflux disease 167154348 K21.9 Long-term drug therapy 298868737 Z79.899 Vitamin D deficiency 347 32052 E55.9 Depressive disorder 3548 9007 F33.8 Pain of mu ltiple joints 33359817 M25.50 Insomnia 044444785 G47.0 0 Migraine 30809639 G43.90 9 Seasonal allergy 1236052 04 J30.2 Constipation 50887582 K5 9.00 [id number] Bety Greene MD [facility] [address] [address] 11/18/2016 16:17:46 11/18/2016 18:08:46 Insomnia 852697407 G47.00 Migraine 43773025 G43.90 9 Renewal of prescription 701888853 Z76.0 Vitamin D deficiency 347 33919 E55.9 Depressive disorder 3548 9007 F33.8 Pain of mu ltiple joints 16266190 M25.50 Seasonal allergy 9710552 04 J30.2 Constipation 61930625 K5 9.00 Fibromyalgia 249111581 M 79.7 [id number] Bety Greene MD [facility] [address] [address] 12/22/2016 11:01:35 12/22/2016 12:11:18 Migraine 47017959 G43.909 Pain of mu ltiple joints 16852395 M25.50 Contusion of rib 9757580 06 S20.20XA Loss of hair 890192734 L 65.9 Lesion of skin of face 0423250660 06 L98.9 [id number] Bety Greene MD [facility] [address] [address] 01/19/2017 12:03:31 01/19/2017 14:25:41 Pain of multiple joints 59307253 M25.50 Migraine 07286226 G43.90 9 Seasonal allergy 1135425 04 J30.2 Vitamin D deficiency 347 99069 E55.9 Constipation 95787120 K5 9.00 Renewal of prescription 386693053 Z76.0 Pain in both feet 722385 8510 9066647 M79.671 M79.672 Bilateral trochanteric bursitis 1512510877 2830298 M70.61 M70.62 Fibromyalgia 682763753 M 79.7 Steatotic liver disease 485454040 K76.0 [id number] Bety Greene MD [facility] [address] [address] 02/23/2017 13:21:12 02/23/2017 14:28:08 Migraine 01943005 G43.909 Seasonal allergy 0246307 04 J30.2 Body mass index 25-29 - overweight 277100024 Z68.29 Screening mammography 24 230173 Z12.31 Screening for malignant neoplasm of cervix 377729053 Z12.4 [id number] Randi Palafox APRN [facility] [address] [place] [address] 03/16/2017 13:54:08 03/16/2017 14:29:46 Acute urinary tract infection 506345888 N39.0 [id number] Bety Greene MD [facility] [address] [place] [address] 03/18/2017 09:45:11 03/18/2017 10:17:38 Migraine 45451366 G43.909 Seasonal allergy 1280165 04 J30.2 Renewal of prescription 854857354 Z76.0 Pain of mu ltiple joints 50879339 M25.50 Constipation 45616658 K5 9.00 Vitamin D deficiency 347 59630 E55.9 Malaise and fatigue 2717 74146 R53.83 Pediculosis capitis 8100 0006 B85.0 exposure to External hemorrhoids 239 34591 K64.4 [id number] Randi Palafox APRN [facility] [address] [place] [address] 03/31/2017 13:35:38 03/31/2017 14:31:16 Routine gynecologic examination done 5336794782 9101 Z01.419 Depression screening 171 722253 Z13.89 PHQ-9 completed today. positive Sees [facility] in Dr Fam Stokes Diet education 28667490 Z71.3 Counseling 854949626 Z71 .9 Exercise counselsanjay lópez. Patient encouraged to exercise 30 minutes 5 days a week. Examinatio n of blood pressure 983595252 Z01.30 Body mass index 25-29 - overweight 190939351 Z68.27 History of total hysterectomy with bilateral salpingo-oophorectomy 626593163 Z90.79 Screening mammography 24 054353 Z12.31 Menopausal syndrome 1237 35934 N95.9 Rectal pain 50450268 K62 .89 [id number] Bety Greene MD [facility] [address] [address] 04/29/2017 14:27:27 04/29/2017 15:53:21 Renewal of prescription 042537161 Z76.0 Migraine 15820098 G43.90 9 Pain of mu ltiple joints 82966381 M25.50 Seasonal allergy 8763224 04 J30.2 Constipation 33737051 K5 9.00 [id number] Bety Greene MD [facility] [address] [address] 05/11/2017 09:55:41 05/11/2017 11:00:14 Body mass index 25-29 - overweight 389408020 Z68.29 [id number] Bety Greene MD [facility] [address] [place] [address] 05/26/2017 16:25:40 05/26/2017 17:43:19 Renewal of prescription 138652934 Z76.0 Menopausal syndrome 1237 00713 N95.9 Seasonal allergy 9186738 04 J30.2 Pain of mu ltiple joints 02281415 M25.50 Excessive somnolence 372 301973 R40.0 [id number] Bety Greene MD [facility] [address] [address] 07/07/2017 17:02:49 07/07/2017 18:14:45 Vitamin D deficiency 80057422 E55.9 Pain of mu ltiple joints 13060428 M25.50 Migraine 35421596 G43.90 9 Depressive disorder 3548 9007 F33.8 [id number] Bety Greene MD [facility] [address] [address] 08/08/2017 16:05:38 08/08/2017 16:45:19 Body mass index 25-29 - overweight 573366015 Z68.26 Renewal of prescription 666376330 Z76.0 Vitamin D deficiency 347 55611 E55.9 Menopausal syndrome 1237 03870 N95.9 Depressive disorder 3548 9007 F33.8 Seasonal allergy 8866944 04 J30.2 Pain of mu ltiple joints 65900978 M25.50 Constipation 64220846 K5 9.00 Migraine 73568825 G43.90 9 [id number] Bety Greene MD [facility] [address] [place] [address] 09/05/2017 08:11:32 09/05/2017 10:14:34 Body mass index 25-29 - overweight 764947342 Z68.25 Pain of mu ltiple joints 04552939 M25.50 Ear pressu re sensation 933908210 H93.8X9 [id number] Bety Greene MD [facility] [address] [place] [address] 10/06/2017 15:01:47 10/06/2017 16:16:09 Pain of multiple joints 52223720 M25.50 Migraine 53532759 G43.90 9 Body mass index 25-29 - overweight 846629089 Z68.25 Menopausal syndrome 1237 02421 N95.9 Gynecologi c examination 80835865 Z01.419 Headache 05016675 R51 Pain of le ft hip joint 9267554678 77745 M25.657 [id number] Bety Greene MD [facility] [address] [place] [address] 11/03/2017 08:58:37 11/03/2017 09:28:34 Body mass index 25-29 - overweight 909644588 Z68.25 Renewal of prescription 434558722 Z76.0 Migraine 39889285 G43.90 9 Vitamin D deficiency 347 67053 E55.9 Pain of mu ltiple joints 48868425 M25.50 Menopausal syndrome 1237 08163 N95.9 Depressive disorder 3548 9007 F33.8 Ear pressu re sensation 139394239 H93.8X9 Constipation 99862314 K5 9.00 [id number] Bety Greene MD [facility] [address] [place] [address] 12/15/2017 10:24:57 12/15/2017 11:24:05 Pain of multiple joints 91757895 M25.50 Long-term drug therapy 162673590 Z79.899 Insomnia 985157233 G47.0 0 Pain of le ft temporomandibular joint 5645363350 1527970 M26.622 Depressive disorder 3548 9007 F33.8 [id number] Bety Greene MD [facility] [address] [address] 01/09/2018 09:27:39 01/09/2018 11:24:08 Administration of influenza vaccine 99342646 Z23 Body mass index 25-29 - overweight 085574989 Z68.26 Chest pain 87556847 R07. 9 [id number] Bety Greene MD [facility] [address] [address] 03/22/2018 14:12:36 03/22/2018 15:15:46 Edema 808453788 R60.9 Ear pressu re sensation 982062972 H93.8X9 Depressive disorder 3548 9007 F33.8 Migraine 46557702 G43.90 9 Sleep shobha raji disturbance 37383155 G47.9 Abdominal pain 26875890 R10.9 [id number] Bety Greene MD [facility] [address] [address] 04/06/2018 15:04:57 04/06/2018 17:11:49 Onychomycosis of toenails 434304159 B35.1 Skin lesion 20922879 L98 .9 ? plantar wart [id number] Bety Greene MD [facility] [address] [address] 06/22/2018 14:57:35 06/22/2018 16:35:19 Fibromyalgia 533748125 M79.7 Long-term drug therapy 403412936 Z79.899 Body mass index 25-29 - overweight 969232635 Z68.26 Pain of mu ltiple joints 35658248 M25.50 Insomnia 064026254 G47.0 0 Dyspareunia 85968858 N94 .10 Pain of hip region 11415 002 M25.405 [id number] Ceci Mart APRN [facility] [address] [address] 10/09/2018 17:55:06 10/09/2018 18:16:11 Herpes labialis 5361150 B00.1 Strain of right trapezius muscle 7149657687 1861917 S29.012A [id number] Irene Hamlin APRN [facility] [address] [address] 11/03/2018 14:27:51 11/03/2018 15:23:07 Dental caries 92930866 K02.9 Toothache 44612424 K08.8 9 [id number] Bety Greene MD [facility] [address] [address] 11/16/2018 15:28:16 11/16/2018 16:51:02 Dental caries 48589819 K02.9 Menopausal syndrome 1237 15258 N95.9 Ear pressu re sensation 457106639 H93.8X9 Vitamin D deficiency 347 63012 E55.9 Edema of l ower extremity 719553385 R60.0 Pain of mu ltiple joints 05469052 M25.50 Herpes labialis 9054549 B00.1 Depressive disorder 3548 9007 F33.8 [id number] Ceci Mart APRN [facility] [address] [address] 12/25/2018 08:51:08 12/25/2018 09:24:50 Acute pansinusitis 6824094 J01.40 Cough 53905082 R05 [id number] Marcus Friedman MD [facility] [address] [address] 04/03/2019 08:05:01 04/03/2019 09:49:14 Cough 13257584 R05 Acute bronchitis 9529477 2 J20.9 Candidiasis of vagina 72 006597 B37.3 Blepharitis 67941115 H01 .9 [id number] Marcus Friedman MD [facility] [address] [address] 11/27/2019 08:21:49 11/27/2019 09:11:49 Bursitis of left hip 851847311 M70.72 [id number] Bety Greene MD [facility] [address] [address] 01/02/2020 16:21:38 01/02/2020 17:47:09 Herpes labialis 4854030 B00.1 Bursitis of left hip 773 282330 M70.72 Menopausal syndrome 1237 82947 N95.9 Allergic rhinitis 409340 04 J30.9 Ear pressu re sensation 281139209 H93.8X9 Vitamin D deficiency 347 83737 E55.9 Body mass index 30+ - obesity 290445083 Z68.31 Screening mammography 24 674612 Z12.31 Screening for malignant neoplasm of colon 197198484 Z12.11 Depressive disorder 3548 9007 F33.8 Neck pain 64926047 M54.2 Generalize d anxiety disorder 05545351 F41.1 Insomnia 324000116 G47.0 0 Chronic ne ck pain for greater than 3 months 9520853879 67053 M54.2 Cervical d isc disorder 950271974 M50.90 Chronic low back pain 27 0963060 M54.5 Degenerati on of lumbar intervertebral disc 50570942 M51.36 Pain of to e of left foot 0857086710 82696 M79.745 [id number] Bety Greene MD [facility] [address] [address] 01/17/2020 16:49:40 01/17/2020 17:38:34 Facial swelling 905110607 R22.0 Seasonal allergy 1780556 04 J30.2 [id number] Bety Greene MD [facility] [address] [address] 01/21/2020 14:16:12 01/21/2020 15:28:08 Left flank pain 906824184 R10.9 Increased frequency of urination 617966962 R35.0 Acute pyelonephritis 366 70992 N10 [id number] Bety Greene MD [facility] [address] [address] 03/14/2020 16:22:16 03/14/2020 16:57:30 Pain in bilateral legs 7699510543 0464233 M79.604 M79.605 History of bariatric surgical procedure 699712387 Z98.84 Family his tory of leukemia 460326165 Z80.6 Depressive disorder 3548 9007 F33.8 Fibromyalgia 129676111 M 79.7 [id number] Bety Greene MD [facility] [address] [address] 03/19/2020 11:12:03 03/19/2020 12:40:26 Vitamin D deficiency 64836589 E55.9 Liver enzy mes level above reference range 784230021 R74.8 Iron deficiency 59745105 E61.1 Bone pain 85726528 M89.8 X9 Family his tory of leukemia 627052715 Z80.6 History of bariatric surgical procedure 103950138 Z98.84 Herpes labialis 9470704 B00.1 [id number] Jessie Leon [address] [address] 04/01/2020 15:21:20 04/01/2020 16:44:28 Anemia 218020908 D64.9 Cobalamin deficiency 190 085343 E53.8 Pain in right knee 25784 38539 94727 M25.561 Pain of le ft ankle joint 6253070716 2724478 M25.680 [id number] Bety Greene MD [facility] [address] [place] [address] [place] [address] 06/09/2020 11:09:46 06/09/2020 12:17:23 Pain in right knee 3938917108 07106 M25.561 Generalize d anxiety disorder 09514936 F41.1 [id number] Bety Greene MD [facility] [address] [place] [address] [place] [address] 07/07/2020 13:51:23 07/07/2020 15:16:06 Fibromyalgia 765873563 M79.7 Pain in right knee 13732 48844 78392 M25.014 [id number] Sylvia Dickson [address] [address] 08/11/2020 15:42:20 08/12/2020 11:38:56 Headache 24108990 R51.9 pt states she is not allergic to NSAIDS but is not suppose to take them because of her gastric bypass she was on a coted one for a while Sinusitis 65466986 J32.9 [id number] Sylvia Dickson [address] [place] [address] 08/14/2020 15:24:07 08/14/2020 16:58:22 Fatigue 64874170 R53.83 Anemia 504560204 D64.9 Onychomyco sis of toenails 106466562 B35.1 try Vicks salve all around tissues at least bid Body mass index 30+ - obesity 190431173 Z68.31 [id number] Marcus Friedman MD [facility] [address] [place] [address] [place] [address] 10/28/2020 14:15:53 10/28/2020 15:02:58 Exposure to SARS-CoV-2 995323479 Z20.828 Restless legs 85304899 G 25.81 [id number] Cheyenne Mccollum [address] [address] 11/13/2020 15:50:25 11/13/2020 16:43:08 Exposure to SARS-CoV-2 182518405 Z20.822 Pain in throat 519743125 R07.0 Acute pharyngitis 164333 003 J02.9 [id number] Cheyenne Mccollum [employer] [place] [address] [place] [address] 11/18/2020 16:01:32 11/18/2020 16:52:40 Exposure to SARS-CoV-2 722021346 Z20.822 Acute uppe r respiratory infection 01563998 J06.9 Continue amoxicilli n until prescripti on is complete. Take mucinex dm Q12 hours and drink plenty of water. [id number] Katherine Burch PA-C [facility] [address] [address] 12/30/2020 08:14:27 12/30/2020 10:10:41 Viral screening 006525823 Z11.52 Herpes labialis 8896171 B00.1 [id number] Katherine Burch PA-C [facility] [address] [place] [address] [place] [address] 01/06/2021 09:18:57 01/06/2021 10:47:09 Myalgia/myositis - multiple 426417462 M79.10 Viral screening 38853359 4 Z11.52 Headache 09878514 R51.9 Pain of mu ltiple joints 86368487 M25.50 [id number] Bety Greene MD [facility] [address] [place] [address] 01/12/2021 09:00:49 01/12/2021 10:30:09 Pain in right knee 1665309002 40078 M25.561 Fibromyalgia 558825876 M 79.7 Wheezing 59876207 R06.2 Herpes labialis 9418088 B00.1 Trochanter ic bursitis of left hip 3172756268 32935 M70.62 Neck pain 46185690 M54.2 Headache 00378315 R51.9 Pain of le ft hip joint 4876267998 65764 M25.824 [id number] Bety Greene MD [facility] [address] [place] [address] 01/26/2021 14:15:01 01/26/2021 15:15:55 HIV screening 877492220 Z11.4 Easy bruising 411742802 R58 Headache 90345571 R51.9 History of bariatric surgical procedure 419538619 Z98.84 Liver enzy mes level above reference range 870316681 R74.8 [id number] Bety Greene MD [facility] [address] [place] [address] 03/27/2021 08:39:11 03/27/2021 09:54:48 Pain of multiple joints 43117126 M25.50 Wheezing 06710290 R06.2 Depressive disorder 3548 9007 F33.8 Bilateral cramp of muscle of lower limbs 8956680619 4978050 R25.2 Easy bruising 139718263 R58 Cervical spine sprain 36 49055977 9108 S13.4XXD Neck pain 80757879 M54.2 Gastroesop hageal reflux disease 690026783 K21.9 [id number] Marcus Friedman MD [facility] [address] [place] [address] 06/29/2021 13:38:52 06/29/2021 16:03:35 Exposure to SARS-CoV-2 980940529 Z20.769 [id number] Savanah Garcia APRN [address] [place] [address] 07/28/2021 09:57:30 07/28/2021 11:39:29 Viral screening 767643159 Z11.52 Pleuritic pain 3859092 R 07.81 [id number] Nilson Mejía MD [address] [place] [address] 07/30/2021 16:30:48 07/30/2021 18:11:10 Pain of hip region 24743561 M25.559 Get XRS. Get labs. Take acetaminop hen as prescribed . See us back or go to an Er right away should get worse or develop any new symptoms or complaints . Follow up with us in a week. Low back pain 245720159 M54.5 Get XRS. Take acetaminop hen and cyclobenza mae as prescribed . See us back or go to (ER) right away should get worse or develop any new symptoms or complaints . Follow up with us in a week. I warned and cautioned about not to engage in activities that require mental alertness like driving, operating machinery etc after taking Cyclobenza mae. Body mass index 30+ - obesity 861790819 Z68.32 Take a low fat diet, exercise and loose weight. Follow up in 3 months. Venereal d isease screening 625244418 Z11.3 Thoracic back pain 85583 8004 M54.6 See above No-1. Sent to ER. Also get XRS - Chest pain 28521372 R07. 9 I recommende d that she should go to the hospital emergency department (ER) right now for further evaluation and management . I offered transfer to ER via ambulance but patient declined that. But she agreed to go to ER right now for further evaluation and management of chest pain. Follow up with us after hospital discharge. Patient agrees with the above plan. Of interest EKG in office showed normal sinus rhythm w/o acute ischemic changes. Abdominal pain 46052988 R10.9 No known allergies to contrast or dye. Get CT scan of abdomen and pelvis. I recommende d that she should seek an immediate medical attention i.e. go to a hospital emergency department (ER) right away should get abdominal pain, groin pain, inguinal pain again or any other complaints or symptoms. Follow up with me after getting CT scan Screening for malignant neoplasm of colon [id number] Z12.11 Options for colon rectal cancer screening were reviewed and discussed with patient. Patient would like to get COLONOSCOP Y. Referred to GI. Screening for malignant neoplasm of breast 869712550 Z12.39 Get mammogram. Follow up with me after getting mammogram Screening for malignant neoplasm of cervix 258132914 Z12.4 Hx of Hysterecto my per patient. See [facility] for a thorough pelvic examinatio n Immunization advised 310 313519 Z71.9 Tells me she had Tdap in 2019. She has declined to get COVID, Shingles and Influenza vaccines despite counsellin g and education [id number] Nilson Mejía MD [address] [place] [address] 08/31/2021 11:18:21 08/31/2021 13:58:32 Depressive disorder 42857175 F32.A Take PAXIL as prescribed . Establish care with a mental health counselor. I counselled patient about the side effects of medication (s). I also recommende d to seek an immediate medical attention i.e. see us or go to Er right away should get worse or develop any new symptoms or complaints . Call 911 and go to ER right away should develop any suicidal thoughts. Follow up with us in 2 weeks. Spasm 13074077 R25.2 Intermitte nt. Get labs. Take Tizanidine as prescribed . See us back or go to ER right away should get worse or develop any new symptoms or complaints . Follow up with me in a week Vitamin D deficiency 347 57936 E55.9 Take Vitamin D3 as prescribed . Get Vitamin D 25 (OH) level in 3 months and see us for same. Iron deficiency 04916534 E61.1 Take ferrous sulfate as prescribed . I discussed in depth that she should see GI for colon rectal cancer screening as soon as possible. Get ferritin and CBC in 2 months and see us for same. Immunization advised 310 579919 Z71.9 Tells me she had Tdap in 2019. She has declined to get COVID, Shingles and Influenza vaccines despite counsellin g and education. Get Hep A vaccine at 0 & 6 months. Get Hep B vaccine at 0, 1 & 6 months. Of note we dont have Hepatitis B vaccine and I asked her to get Hepatitis B vaccine at outside store or pharmacy. Anti-nucle ar factor detected 167872829 R76.8 OLIVA + with speckled pattern 1:40. She has been referred to Rheumatolo gist and asked to keep appt with them once scheduled. Liver enzy mes outside reference range 407359675 R94.5 Referred to GI. See us back or go to ER right away should get worse or develop any new symptoms or complaints Headache 37880831 R51.9 No known allergies to contrast or dye. Get MRI of brain. Referred to neurologlyly levin. I recommende d that she should seek an immediate medical attention i.e. go to hospital emergency department (ER) right away should get headache again or any other complaints or symptoms. Snoring symptoms 8670631 00 R06.83 Referred to neurologis poonam for a further evaluation and management . I warned and cautioned about not to engage in activities that require mental alertness like driving, operating machinery etc. while she's feeling fatigued, tired, sleepy or drowsy. [id number] Nilson Mejía MD [address] [place] [address] 10/22/2021 11:49:06 10/22/2021 13:09:44 Chest pain 79433925 R07.9 Intermitte nt chest pain and dyspnea with exertion. EKG showed a normal sinus rhythm but no acute ischemic changes. I recommende d that she should go to a hospital emergency department (ER) right now for further evaluation and management . I offered transfer to an (ER) via ambulance but patient declined that. But she agreed to go to ER right now. Follow up with us and cardiologi after hospital discharge. Iron deficiency 23901130 E61.1 Take ferrous sulfate as prescribed . I discussed in depth that she should see GI for colon rectal cancer screening as soon as possible. Get labs Vitamin D deficiency 347 16888 E55.9 Take Vitamin D3 as prescribed . Get Vitamin D 25 (OH) level in 3 months and see us for same. Body mass index 30+ - obesity 410548040 Z68.32 Take a low fat diet, exercise and loose weight. Follow up in 3 months. Screening for malignant neoplasm of breast 722124963 Z12.39 Get mammogram. Would like to see a female provider for breast exam and I asked her to set up an appointmen t for same. Screening for malignant neoplasm of colon 706227250 Z12.11 Options for colon rectal cancer screening were reviewed and discussed with patient. Patient would like to get COLONOSCOP Y. Referred to GI. Depressive disorder 2243 8207 F32.A Controlled . Take PAXIL as prescribed . Establish care with a mental health counselor. I counselled patient about the side effects of medication (s). I also recommende d to seek an immediate medical attention i.e. see us or go to Er right away should get worse or develop any new symptoms or complaints . Call 911 and go to ER right away should develop any suicidal thoughts. Follow up with us in 3 months Immunization advised 310 735570 Z71.9 Tells me she had Tdap in 2019. She has declined to get COVID, Shingles and Influenza vaccines despite counsellin g and education. Get Hep B vaccine at 0, 1 and 6 months. See us back in a month for second dose of Hepatitis B. Neck pain 58328946 M54.2 Get XRS of cervical spine. Take acetaminop hen and cyclobenza mae as prescribed . Will refer for PT. I also asked her to see us back or go to Er right away should get worse or develop any new symptoms or complaints . Follow up with me in a couple of weeks. Chronic low back pain 27 3563267 M54.50 XRS of lumbosacra l spine on 08.17.21 showed: subtle convex left curvature. Referred for PT and to a pain specialist . Take acetaminop hen and cyclobenza mae as prescribed . See us back or go to Er right away should get worse or develop any new symptoms or complaints . Follow up with me in six weeks or so. Pain of hip region 95953 002 M25.559 XRS of hips were normal on 08.17.2021 . Take acetaminop hen as prescribed . Will refer to pain specialist and Orthopedic s. See us back or go to (ER right away should get worse or develop any new symptoms or complaints . [id number] Marcus Friedman MD [facility] [address] [place] [address] 01/27/2022 08:11:54 01/27/2022 10:08:39 Vitamin D deficiency 14297753 E55.9 Anxiety 55942022 F41.9 Anemia 680615192 D64.9 Spasm 04501772 R25.2 Pain of mu ltiple joints 65211195 M25.50 [id number] Sofie Crowe APRN [facility] [address] [place] [address] 03/02/2022 09:50:14 03/02/2022 10:26:35 Pain in left lower limb 671230659 M79.605 Will order U/S to evaluate the vascular system to see if this is the cause of the pain Pain in ri ght lower limb 912421014 M79.604 As above Pain of bi lateral knee joints 3340618296 43461 M25.561 Spasm 51569248 R25.2 Fibromyalgia 491166405 M 79.7 Will send to rheumatolo gy for further evaluation as some of this may be the cause of pain Intermitte nt palpitations 369842806 R00.2 Will call with resultsIf develops any CP, SOA, dizziness, or LOC go to the ER [id number] Nilson Mejía MD [address] [place] [address] 05/25/2022 15:13:36 05/25/2022 17:51:19 Rectal hemorrhage 61456240 K62.5 Patient is scheduled to COLONOSCOP Y and asked to keep that appointmen t. I also recommende d she should follow up with her surgeon. Get labs. I recommende d that she should also seek an immediate medical attention i.e. go to hospital emergency department (ER) right away should get bleeding from rectum again or any other complaints or symptoms Low back pain 360340203 M54.50 UA is normal. Get XRS of L-S spine. Can take acetaminop hen 500 mg every six hours as needed. See us back or go to ER right away should get worse or develop any new symptoms or complaints . Follow up with us in a week Vitamin D deficiency 347 81105 E55.9 Patient has HX of Vitamin D DEF- Will check labs and go from there Anxiety disorder 4612955 06 F41.9 Patient tells me she stopped taking paroxetine and duloxetine a while back (due to ineffectiv eness). I recommende d to start Effexor and see counselor and psychiatri st. I counselled patient about the side effects of medication (s). I also recommende d to seek an immediate medical attention i.e. see us or go to Er right away should get worse or develop any new symptoms or complaints . Call 911 and go to ER right away should develop any suicidal thoughts. Follow up with us in 2 weeks. [id number] Nilson Mejía MD [address] [place] [address] 07/22/2022 08:30:39 07/22/2022 09:21:33 Insomnia 306640160 G47.00 Take Trazodone as prescribed . Will refer to mental health counselor for CBT and to psychiatry . In fact she has been referred to psychiatry in May 2022 and I gave her their contact number to schedule an appointmen t. See us back or go to Er right away should get worse or develop any new symptoms or complaints . Follow up with us in a couple of weeks. Low back pain 131900352 M54.50 XRS of degenerati ve changes. Take cyclobenza mae as prescribed . Will refer for PT, to pain specialist . Get MRI of lumbar spine. See us back or go to an Er right away should get worse or develop any new symptoms or complaints . Follow up with us in 4 weeks. Pain of hip region 60996 002 M25.559 Get XRS of right hip. Can take acetaminop hen 500 mg every six hours as needed. Will refer to ortho. See us back or go to (ER) right away should get worse or develop any new symptoms or complaints . Pain in ri t lower limb 906101262 M79.604 It would be right lateral hip pain radiating down into right lower extremity. Will get venous US to rule out DVT Pain in right foot 31540 51284 29917 M79.671 Get XRS. Can take acetaminop hen 500 mg every six hours as needed. See us back or go to an Er right away should get worse or develop any new symptoms or complaints Vitamin D deficiency 347 78548 E55.9 Take Vitamin D3 as prescribed . Get Vitamin D 25 (OH) level and adjust dose of Vitamin D3 if needed Recurrent herpes simplex labialis 688031853 B00.1 Take acyclovir as prescribed . Call us back or go to the Er right away should develop any symptoms or complaints Obesity 060131499 E66.9 Take a low fat diet, exercise and loose weight. Follow up in 3 months. Headache 51287745 R51.9 Get MRI of brain. Referred to neurologlyly levin. I recommende d that she should seek an immediate medical attention i.e. go to hospital emergency department (ER) right away should get headache again or any other complaints or symptoms. [id number] Nilson Mejía MD [address] [place] [address] 08/18/2022 09:15:10 08/18/2022 10:17:25 Headache 26195380 R51.9 Migraine. Take Imitrex as prescribed . She has been referred to neurologlyly levin and asked to keep the appt with them once scheduled. See us back or go to (ER0 right away should get worse or develop any new symptoms or complaints . Follow up with family doctor in a month Magnetic r esonance imaging of brain abnormal 030877297 R93.0 Follow up with neurologlyly levin Disorder o f nasal sinus 2985911 J34.9 MRI showed- 9 mm mucous retention cyst versus polyp within the anterior sphenoid sinus. There is mild mucoperios teal thickening of the inferior right maxillary sinus. No symptoms or signs suggestive of sinus infection at present time. Follow up with ENT. I recommende d she should seek an immediate medical attention i.e. call us or go to the hospital emergency department (ER) right away should get symptoms or complaints . Vitamin D deficiency 347 19916 E55.9 Take Vitamin D3 as prescribed . Get Vitamin D 25 (OH) level in 3 months and see us for same. [id number] Nalini Rodriguez APRN [address] [place] [address] 02/02/2023 14:55:49 02/02/2023 16:18:28 Insomnia 823811616 G47.00 Start Ambien - F/U 1 month; Discussed possible side effects of medication Skin lesion 86501090 L98 .9 F/U PRN if worsens or no improvemen t Long-term drug therapy 368558057 Z79.899 Frequent headache 338616 003 R51.0 Will call with results Anxiety 07656667 F41.9 Stop Paxil, start Duloxetine . F/U 1 month. Vitamin D deficiency 347 82178 E55.9 Fatigue 12475738 R53.83 [id number] Nalini Rodriguez APRN [address] [place] [address] 04/26/2023 09:28:51 04/26/2023 10:45:31 Depressive disorder 30613060 F32.A Uncontrol ed, switched medication - see plan below under anxiety diagnosis History of cardiac catheterization 1482305038 9100 Z98.890 Follows with Cardiology Coronary arteriosclerosis 26849791 I25.10 Continue to F/U with Cardiology as scheduled Body mass index 30+ - obesity 602738117 Z68.33 Start Contrave - discussed possible side effects of medication . Advised on diet/exerc ise. Obesity 342774608 E66.9 Edema of l ower extremity 205687133 R60.0 Will call with results Recurrent herpes simplex labialis 691747066 B00.1 Well-contr olled; Refills Low back pain 668315433 M54.50 Increased to 10mg Pain of bi lateral knee joints 3919927600 61744 M25.561 M25.562 Well-contr olled Anxiety 42151769 F41.9 Stop duloxetine , Start Effexor. F/U 1 month Insomnia 025085264 G47.0 0 Continue Ambien - F/U 3 months Long-term drug therapy 323962144 Z79.899 Vitamin D deficiency 347 01812 E55.9 Essential hypertension 95071045 I10 Well-contr olled [id number] Nalini Rodriguez APRN [address] [place] [address] 06/13/2023 13:30:22 06/13/2023 14:34:10 Body mass index 30+ - obesity 446145105 Z68.33 Start Adipex - discussed possible side effects of medication . Advised on referral to dietitian - patient refuses at this time. Advised on diet/exerc ise. F/U 1 month. Dysuria 71882284 R30.0 F/U PRN if symptoms worsen or no improvemen t Long-term drug therapy 706550625 Z79.899 Cobalamin deficiency 190 130196 E53.8 Return monthly for injections Prediabetes 516621781 R7 3.03 Patient to return when fasting Pain of ri ght hip joint 9533885153 95567 M25.551 Referred as requesting Obesity 751856129 E66.9 Pain of bi lateral knee joints 1523428359 77758 M25.561 M25.562 Well-contr olled Recurrent herpes simplex labialis 528224631 B00.1 Well-contr olled; Refills Health Concerns Section Related Observation LastModified by Organization Detai ls LastModified Time None Recorded Concern Status LastModified by Organization Details LastModified Time None Recorded Advance Directives Directive N: Payers Insurance Date Sequence Insurance Name Policy Number Policy Siu Covered Member ID Siu Member ID Guarantor Name 06/13/2023 1 [place] [id number] Karla Tomlin Colemire [id number] Karla Glassmire 06/13/2023 1 [place] [id number] S Karla Colemire [id number] Karla Colemire 10/14/2024 [place] [facility] [place] Karla Glassmire [id number] Karla Colemire 04/03/2019 1 *SELF PAY* Cl jeff Colemire 06/13/2023 [place] Karla Rios Colemire [id number] Karla Colemire 06/13/2023 1 [facility] [id number] Karla Rios Colemire [id number] Karla Colemire 12/30/2020 1 *SELF PAY* Cl jeff Colemire 06/13/2023 1 [facility] [place]MEDICAID O) Karla Rios Colemire [id number] Karla Colemire 01/03/2017 1 UNSPECIFIED REMIT PAYOR Karla Colemire 10/13/2024 1 [employer] [place] (MEDICA[place] O) Karla Colemire [id number] Karla Colemire 06/13/2023 [place] [facility] [place] Karla Tomlin Colemire [id number] Karla Neri Notes Date Note Type Note Provider Name and Address Organization Details Recorded Time 07/22/20 22 text/htm l Back PainReported bypatient.Location:lumbar; pain is not radiating Quality:pain Severity:mild to moderate Duration:chronic; 3+ years Context:atraumatic Aggravating Factors:flexing back; bending Associated Symptoms:no fever; no weak limbs; no numbness of the legs/feet; no tingling; no incontinence; no shortness of breath; no unintentional weight loss; no chills; no night sweats; no gait instability; no bowel/bladder symptoms; no recent increase in stress Previous Injury:no prior malignancyHeadacheReported bypatient.Location:top of head Quality:pain Severity:mild to moderate Duration:intermittent; She has been getting headaches for the last four years. Headache would happen about once a week and last a variable duration of time. Bright light sometimes would aggravate headache. Context:not related to trauma Associated Symptoms:no vomiting; tearing/watery eyes; no confusion; no slurred speech; no preceeding aura; no double vision; normal feeling/sensation; no motor paralysis; no dizziness; no sleep disturbances; no nosebleeds; no hoarseness; no sore throat; no hearing lossNotes:No headache at time of encounter with meMusculoskeletal PainReported bypatient.Location:right hip (lateral aspect); radiating into right lower extremity (lateral aspect) Quality:pain Severity:mild to moderate Duration:present for 1-6 months; 3 months Timing:intermittent Context:no trauma Aggravating factors:sitting Associated Symptoms:no fever; no weak limbs; no tingling; no numbness of the legs/feet; no incontinenceNotes:She also reports an intermittent pain over the anterior aspect of right ankle and dorsal aspect of the right foot x 6 months. No trauma to ankle or foot. Pt gets recurrent herpes labialis and is asking for acyclovir. No recurrence of herpes labialis is going on at the present time. APUL Esquivel - [facility] 07/22/2022 09:45:04 08/18/20 22 text/htm l I reviewed and discussed with patient findings on MRI of brain. Of interest- 1. No acute intracranial process. 2. Several punctate foci of abnormal T2 hyperintensity within the periventricular white matter, likely secondary to chronic small vessel ischemia. 3. Mild chronic sphenoid and right maxillary sinusitis. She denies symptoms suggestive of sinus infection. She has HX of intermittent migraine headaches. Had just one migraine headache since last OV with me Nilson lopez, [place] - [facility] 08/19/2022 02:33:36 02/03/20 23 text/htm christen Acosta is a 52 year old female who is a new patient to me referred by her vision therapist. She is here to follow-up on difficulty sleeping and headaches. She awakes with headaches and states they are almost constant. She states sometimes it is dull but at times it can become a pounding headache. She has taken Topamax previously and it has not helped. She states she has had headaches for years and no medications she has been given have helped. She states she cannot shut her mind off so has trouble falling asleep, then she will wake every 2-3 hours. She reports she did have LEENA, but had gastric bypass and was tested again and it was negative. She states the only medication that has ever helped was Ambien. She has tried trazodone and melatonin gummies with no relief. She reports she has a skin lesion that is tiny on her chest - she states if she let's soap hit it that is mchugh. 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 She states she has had terrible pain of inner thigh. She states sometimes it causes her to have to drag her leg. She will have it happen during sleep and wake her up at times and sometimes if she has been driving for long period of time. She feels it may be nerve related. Nalini Rodriguez, [employer] [address], [place], [address], [place] - [facility] 02/02/2023 16:29:18 04/26/20 23 text/htm christen Acosta is a 52 year old female who is here for a follow-up on multiple chronic problems. She reports she has not had any medications for over 1 month due to her insurance, including her heart meds. She states she has been getting cramps behind right knee and sometimes left knee that feels like a charley horse and causes pain to the point of tears. She states it feels like someone has a knife in her leg. She has to stand up and take pressure off her leg to help relieve some of the pain. She is requesting her muscle relaxer that she uses for back pain be increased, she doesn't feel the 5mg Flexaril is working any longer. She has swelling in lower extremities at times also and is concerned of a blood clot. She would like to discuss medication for weight loss. She feels a lot of her joint pain is contributed to due to her excess weight. She has tried dieting on her own without any results. She is adamant about starting a weight loss pill today . She is wanting to discuss a different med for her anxiety/depression. She doesn't feel the duloxetine helped when she did take it for 1 month. She has tried multiple medication in the past without relief. She states she feels like she cannot get the thoughts in her head to stop and she is on edge and feeling irritable a lot of the time. She complains of headaches. She reports the Ambien was working well for sleep and helping her fall asleep and stay asleep. She is needing refills on that today but has been out of it along with the rest of her meds. Last UDS: 04/26/23Last GONZÁLEZ: 04/26/23Controlled Substance Agreement on File: YES, signed 02/02/23 Nalini Rodriguez, DONALDO [address], [place], [address], [place] - [facility] 04/26/2023 10:49:31 06/13/20 23 text/htm christen Acosta is a 53 year old female who complains of foul odor with urine for the past few days. She states it started with burning. She denies fever. She is also here for a follow-up on weight loss. She reports she is not losing weight on the Contrave. She doesn't feel it helps suppress her appetite. She has taken Adipex in the past and would like to try that again - states that is the only thing that ever helps her. She complains of fatigue. Reports she used to get B12 injections and would like one today. She complains of ongoing right hip pain that has been going on for over 1 year. She had X-rays previously with another provider about 1 year ago that were normal. She states it is painful even to lay in bed at night she cannot get comfortable. She is requesting a referral to Ortho. Last UDS: 06/13/23Last GONZÁLEZ: 06/13/23Controlled Substance Agreement on File: YES Nalini Rodriguez, [employer] [address], [place], [address], [facility] - [facility] 06/13/2023 14:31:52 OBGyn Episode No OBEpisode recorded.
--- OUTSIDE RECORDS SUMMARY | 2025-04-16 07:17 | XMS_ITS | Clinical Summary ---
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 STOP TAKING VITAMIN D3 1250 MCG (50 000 UNITS) 05/28/2022 Active hydrOXYzine (ATARAX) 50 mg Oral Tablet Take 50 mg by mouth nightly as needed. at bedtime 08/11/2022 Active zolpidem (AMBIEN) 10 mg Oral Tablet Take by mouth. Active POTASSIUM-99 ORAL Take by mouth. Active FEROSUL 325 mg (65 mg iron) Oral Tablet TAKE ONE (1) TABLET BY MOUTH TWICE DAILY 05/05/2022 Active acetaminophen 325 mg Oral Tab TAKE 2 TABLETS BY ORAL ROUTE EVERY SIX (6) HOURS NEEDED 08/09/2022 Active cyclobenzaprine (FLEXERIL) 5 mg Oral Tablet TAKE ONE (1) TABLET TWICE A DAY BY MOUTH 08/20/2022 Active venlafaxine (EFFEXOR-XR) 75 mg Oral Capsule, Sust. Release 24 hr Take 75 mg by mouth daily. Active ondansetron (ZOFRAN) 4 mg Oral Tablet Take 4 mg by mouth every 8 hours as needed for Nausea. Active DULoxetine (CYMBALTA) 30 mg Oral Capsule, Delayed Release(E.C.) Take 30 mg by mouth daily. Active escitalopram oxalate (LEXAPRO) 20 mg Oral Tablet Take 20 mg by mouth daily. Active aspirin 325 mg Oral Tablet, Delayed Release (E.C.) Take 1 Tablet by mouth two times a week. 8 Tablet 2 01/30/2024 Active dilTIAZem (TIAZAC) 120 mg Oral Capsule,Sustain ed Action 24 hr Take 1 Capsule by mouth daily. 30 Capsule 2 01/27/2024 Active metoprolol succinate (TOPROL-XL) 25 mg Oral Tablet Sustained Release 24 hr Take 1 Tablet by mouth daily. 30 Each 2 01/27/2024 Active Active Problems Problem Noted Date Diagnosed Date SOB (shortness of breath) on exertion 01/27/2024 Coronary artery disease involving new [place] heart 0 01/27/2024 Chest pain, unspecified type 01/26/2024 Syncope 08/31/2022 Implantable loop recorder present 08/30/2022 Overview (08/31/2022): Mac Jot Dx ICM implanted 07/07/22 SVT (supraventricular tachycardia) 08/30/2022 Ureteral stricture, left 01/29/2020 Left ureteral calculus 01/23/2020 Overview (08/31/2022): Added automatically from request for surgery [id number] Renal colic on left side 01/23/2020 Overview (08/31/2022): Added automatically from request for surgery [id number] Elevated blood sugar 01/21/2020 Renal calculus, left 01/21/2020 Overview (08/31/2022): Last Assessment & Plan: S/p cystoscopy with stent placement by urology. Will discharge today. Pain control per urology. Palpitations 04/08/2014 Backache 05/30/2013 Depression 05/30/2013 Elevated BP 05/30/2013 Neck pain 05/30/2013 Suicidal ideation 05/30/2013 UTI (urinary tract infection) 05/30/2013 LLQ abdominal pain 06/30/2011 Left shoulder pain 12/02/2010 Heartburn Motion sickness Osteoarthritis Sleep apnea Overview (04/08/2014): no cpap Migraine Eating disorder Motion sickness Surgical History Surgery Date Site/Laterality Comments TUBAL LIGATION BUNIONECTOMY x2 left foot CARPAL TUNNEL RELEASE rosana and rosana cubital tunnel ROTATOR CUFF REPAIR Left HERNIA REPAIR left inguinal OTHER SURGICAL HISTORY temporal artery biopsy NOSE SURGERY THROAT SURGERY dilitation HYSTERECTOMY URETHRA SURGERY stretched GASTRIC BYPASS SURGERY and appendectomy CHOLECYSTECTOMY Medical History Medical History Date Comments Arthritis Depression Mitral valve prolapse Anemia with Anxiety Chicken pox Kidney stones Constipation Depression Eating disorder Migraine Sleep apnea no cpap Heartburn Osteoarthritis Urinary tract infection Anesthesia after appendecto my - 9 hours to awaken Motion sickness Family History Medical History Relation Name Comments Arthritis Father Cancer Maternal Grandfather Arthritis Mother Heart Failure Mother 68 Anesth Problems Neg Hx Relation Name Status Comments Father Maternal Grandfather Mother Alive Social History Tobacco Use Types Packs/Day Years Used Date Smoking Tobacco: Never Smokeless Tobacco: Never Alcohol Use Standard Drinks/Week Comments No 0 (1 standard drink = 0.6 oz pur e alcohol) [facility] Utilities Answer Date Recorded In the past 12 months has e electric, gas, oil, or water company threatened to shut off services in your home? No 01/27/2024 Overall Financial Resource Strain (CARDIA) Answe r Date Recorded How hard is it for you to pa y for the very basics like food, housing, medical care, and heating? Not hard at all 01/27/2024 PHQ-2 Answer Date Recorded PHQ-2 Total Score 0 01/27/2024 [facility] [place] [facility] - Occupational Stress Questionnaire Answer Date Recorded Do you feel stress - tense, restless, nervous, or anxious, or unable to sleep at night because your mind is troubled all the time - these days? Only a little 01/27/2024 Exercise Vital Sign Answer Date Recorde d On average, how many days pe r week do you engage in moderate to strenuous exercise (like a brisk walk)? 5 days 01/27/2024 On average, how many minutes do you engage in exercise at this level? 30 min 01/27/2024 Hunger Vital Sign Answer Date Recorded Within the past 12 months, y ou worried that your food would run out before you got the money to buy more. Never true 01/27/20 24 Within the past 12 months, t he food you bought just didn't last and you didn't have money to get more. Never true 01/27/2024 [facility] IP Transportation Answer D ate Recorded In the past 12 months, has l ack of reliable transportation kept you from medical appointments, meetings, work or from getting things needed for daily living? No 01/27/2024 Comments No Sex and Gender Information Value Date Recorded Sex Assigned at Not on file Legal Sex Female 10:19 PM EDT Gender Identity Not on file Sexual Orientation Not on file Obstetrics History Last Filed Vital Signs Vital Sign Reading Time Taken Comments Blood Pressure 140/84 01/27/2024 10:22 AM EDT Pulse 66 01/27/2024 10:22 AM EDT Temperature 36.8 C (98.2 F) 01/27/2024 10:22 AM EDT Respiratory Rate 14 01/27/2024 10:22 AM EDT Oxygen Saturation 98% 01/27/2024 10:22 AM EDT Inhaled Oxygen Concentration - - Weight 93.9 kg (207 lb) 08/23/2024 3:58 PM EDT Height 167.6 cm (5' 6 ) 08/23/2024 3:58 PM EDT Body Mass Index 33.41 08/23/2024 3:58 PM EDT Plan of Treatment Health Maintenance Due Date Last Done Comments Annual Wellness Exam 1971 Cervical Cancer Screening 1989 Pap Smear 1989 HPV/Pap Cotest 1998 Cologuard 2013 Colon Cancer Screening 2013 Colonoscopy 2013 FIT 2013 Sigmoidoscopy 2013 Virtual Colonography 2013 Pneumococcal Vaccine 50+ (1 of 1 - PCV) 2018 Zoster (1 of 2) 2018 Breast Cancer Screening 04/14/2019 04/14/2017 Hepatitis B Vaccine (2 of 3 - 19+ 3-dose series) 11/19/2021 10/22/2021 COVID-19 Vaccine ( - 2023-2 5 season) 2024 Influenza Vaccine (Season Ended) 2025 01/09/2018, 08/13/2016, 08/08/2009 DTaP/TDaP/Td (2 - Td or Tdap) 01/20/2026 01/21/2016 Meningococcal B Vaccine Aged Out No l onger eligible based on patient's age to complete this topic Advance Directives For more information, please contact: [phone] Documents on File Type Date Recorded 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 * Full Code (Latest Code Status on File) Date Activated Date Inactivated Comments 01/27/2024 12:00 AM 01/27/2024 6:55 PM * Full Code Date Activated Date Inactivated Comments 01/27/2024 12:00 AM 01/27/2024 12:00 AM Care Teams Metal Grader Relationship Specialty Start Date End Date Duong Mckeon MD [address] [place] [phone] PCP - General Family Medicine 08/23/13
--- OUTSIDE RECORDS SUMMARY | 2025-04-16 07:17 | XMS_ITS | Data Portability ---
Author Organization [facility] & ROBINA Sherwood ADMIN Address [address] [place] [id number] Assessment Encounter Date Assessment Date Assessment LastModified by Organization Details LastModified Time 01/20/2024 01/20/2024 Reviewed [employer] loop recorder. Implant date July 07, 2022. Remaining battery capacity approximately > 10%. No atrial fibrillation. No tachycardia. No bradycardia. No pauses. No symptom episodes. No changes. [email or web address] Not available 01/20/2024 13:34:57 02/24/2024 02/24/2024 Reviewed [employer] loop recorder. Implant date July 07, 2022. Remaining battery capacity approximately > 10%. No atrial fibrillation. No tachycardia. No bradycardia. No pauses. No symptom episodes. No alerts. No changes. Keep follow-up. [email or web address] Not available 02/24/2024 13:40:19 04/13/2024 04/13/2024 Reviewed [employer] loop recorder. Implant date July 07, 2022. Remaining battery capacity approximately 10%. No atrial fibrillation. No tachycardia. No bradycardia. No pauses. No symptom episodes. No alerts. No changes. Keep follow-up. [email or web address] Not available 04/13/2024 13:26:53 05/18/2024 05/18/2024 Reviewed [employer] loop recorder. Implant date July 07, 2022. Remaining battery capacity approximately 10%. No atrial fibrillation. No tachycardia. No bradycardia. No pauses. No symptom episodes. No alerts. No changes. Keep follow-up. [facility] Not available 05/18/2024 15:51:46 06/22/2024 06/22/2024 Reviewed [employer] loop recorder. Implant date July 07, 2022. Remaining battery capacity approximately 10%. No atrial fibrillation. No tachycardia. No bradycardia. No pauses. No symptom episodes. No alerts. No changes. Keep follow-up. [email or web address] Not available 06/22/2024 13:16:59 Plan of Treatment Reminders Order Date Submit Date Provider Last Modified By Organization Details Last Modified Time Details Appointments None recorded. Lab None recorded. Referral None recorded. Procedures remote device interrogati on (PROC) 2023 024 [email or web address] Not available 4 07:40:36 remote device interrogati on (PROC) 2023 024 [email or web address] Not available 4 08:01:47 remote device interrogati on (PROC) 2023 024 [email or web address] Not available 4 08:05:08 remote device interrogati on (PROC) 2023 024 [email or web address] Not available 4 13:52:14 remote device interrogati on (PROC) 2023 024 [email or web address] Not available 4 07:52:40 Surgeries None recorded. Imaging None recorded. Medication Orders None recorded. Patient TargetsNo targets recorded. Patient InstructionsNo instructions recorded. Reason for Referral None Reported. Problems Name Problem SNOMED Code Status Onset Date Resolution Date Notes Provider Name and Address Organization Details Recorded Time Cobalamin deficiency 950744554 Active Denise Bart null, [place] - [facility] - [place] & [place] 2 09:27:50 Vitamin D deficiency 59954431 Active Den[place] [facility] [place] & [place] 2 09:28:05 Iron deficiency 92583541 Active Den[place] null[place] [facility] [place] & [place] 2 09:28:15 Depressive disorder 19867473 Active Den[place] null[place] [facility] [place] & [place] 2 09:28:23 Insomnia 073416269 Active Den[place] null[place] [facility] [place] & [place] 2 09:28:34 Restless legs 27291703 Active Den[place] null[place] [facility] [place] & [place] 2 09:28:42 Coronary arterioscleros is 64331487 Active Denise [place] null[place] [facility] [place] & [place] 2 09:28:53 Allergic rhinitis 65674944 Active Den[place] [facility] [place] & [place] 2 09:29:02 Gastroesophage al reflux disease 117881252 Active Den[place] null[place] [facility] [place] & [place] 2 09:29:16 Irritable bowel syndrome 13753182 Active Den[place] [facility] [place] & [place] 2 09:29:26 Osteoarthritis of knee 099520324 Active Den[place] null[place] [facility] [place] & [place] 2 09:29:44 Pain of multiple joints 39542260 Active Den[place] [facility] [place] & [place] 2 09:29:56 Cervical disc disorder 660941478 Active Den[place] null[place] [facility] [place] & [place] 2 09:30:08 Fibromyalgia 738669420 Active Denise [place] null[place] [facility] [place] & [place] 2 09:30:17 Near syncope 365883386 Active 2022 Sonu Posada MD [address] [place] [address], [phone] [facility] [place] - [facility] - [place] & [place] 3 06:35:02 Notes:HTN LEENA CAD PALPITATIO NS TACHYCARDIA SOB CHEST PRESSURE HX OF GASTRIC BYPASS CHRONIC PAIN HX OF NARCOTIC ADDICTION Problem Notes None recorded. Procedures Surgical History Date Name Laterality Status Provider Name and Address Organization Details Recorded Time 006 Gastric bypass for obesity completed Maine Sawyer [place] - [facility] - [place] & [place] 08/03/2022 14:18:50 005 Hysterectomy/bladd er repair completed [place] [facility] & [place] 08/03/2022 14:19:06 fluoroscopy guided insertion of bioabsorbable arterial stent with contrast completed [place] [facility] & [place] 01/19/2023 19:58:37 fluoroscopic arthrography of shoulder completed [place] [facility]ARLES [facility] & [place] 01/19/2023 19:59:06 cholecystectomy completed [place] QUARLES [facility] & [place] 01/19/2023 19:59:23 Appendectomy completed [place] QUARLES [facility] & [place] 01/19/2023 19:59:35 Cardiac Catheterization completed [place] [facility] & [place] 01/19/2023 19:59:49 implantation of insertable loop recorder completed [place] [facility] & [place] 01/19/2023 20:00:31 Imaging Results None recorded. Procedure Notes None recorded. Medical Equipment None Reported. Allergies Allergen ID Allergen Name Allergen Category Reaction Reaction Severity Criticality Documentation Date Start Date Code Code System Note Provider Name and Address Organization Details Recorded Time 54996 Non-stero idal anti-infl ammatory agent (product) medicatio n Not available Not available Not available 08/03/2022 32121 005 SNOMED Maine lopez, PAUL [facility] & [place] 14:08:37 Medications Name Sig Start Date Stop Date Status Note LastModified by Organization Details LastModified Time cyclobenzap rine 10 mg tablet TAKE ONE (1) TABLET BY MOUTH THREE (3) TIMES DAILY active Not Available Not Available No t Available amoxicillin 500 mg capsule TAKE ONE (1) CAPSULE BY MOUTH TWO (2) TIMES PER DAY FOR 10 DAYS 12/01 completed Not Available Not Available Not Available venlafaxine ER 37.5 mg capsule,ext ended release 24 hr TAKE 1 CAPSULE BY MOUTH EVERY DAY FOR ONE (1) WEEK 12/01 completed Not Available Not Available Not Available acetaminoph en 325 mg tablet TAKE 2 TABLETS BY ORAL ROUTE EVERY SIX (6) HOURS NEEDED 08/27 completed Not Available Not Available Not Available venlafaxine ER 75 mg capsule,ext ended release 24 hr TAKE ONE CAPSULE EVERY DAY BY MOUTH START ON DAY 8 AFTER FINISHING EFFEXOR XR 37.5 MG active Not Available Not Available No t Available paroxetine 10 mg tablet TAKE ONE TABLET EVERY DAY BY ORAL ROUTE FOR FIRST ONE WEEK 08/03 completed Not Available Not Available Not Available tizanidine 2 mg tablet TAKE 1 TABLET BY MOUTH EVERY 12 HOURS 08/03 completed Not Available Not Available Not Available trazodone 50 mg tablet TAKE ONE (1) TABLET EVERY DAY BY MOUTH AT BEDTIME. 01/20 completed Not Available Not Available Not Available azithromyci n 250 mg tablet TAKE 2 TABLETS TODAY THEN TAKE 1 TABLET DAILY FOR THE NEXT 4 DAYS 12/01 completed Not Available Not Available Not Available sumatriptan 50 mg tablet TAKE 1 TABLET BY MOUTH AT ONSET OF HEADACHE. IF HEADACHE PERSIST OR RETURN, MAY REPEAT A DOSE OF ONE TABLET AT OR AFTER TWO (2) HOURS. DO NOT TAKE MORE THAN TWO (2) TABLETS PER 24 HOURS 10/13 completed Not Available Not Available Not Available hydroxyzine HCl 50 mg tablet TAKE ONE (1) TABLET NEEDED BY ORAL ROUTE AT BEDTIME FOR 30 DAYS. active Not Available Not Available No t Available phentermine 37.5 mg tablet TAKE ONE (1) TABLET EVERY DAY BY ORAL ROUTE FOR 30 DAYS. 12/01 completed Not Available Not Available Not Available clopidogrel 75 mg tablet TAKE 1 TABLET BY MOUTH EVERY DAY active Not Available Not Available No t Available acyclovir 400 mg tablet TAKE ONE (1) TABLET TWICE A DAY BY ORAL ROUTE. active Not Available Not Available No t Available acetaminoph en 500 mg tablet TAKE ONE (1) TABLET EVERY SIX (6) HOURS BY MOUTH NEEDED. 08/03 completed Not Available Not Available Not Available Vitamin D3 10 mcg (400 unit) tablet TAKE TWO TABLETS EVERY DAY BY ORAL ROUTE. STOP TAKING VITAMIN D3 1250 MCG (50 000 UNITS) 12/01 completed SW Not Available Not Available Not Available diltiazem ER 120 mg capsule,24 hr,extended release Take 1 capsule every day by oral route for 30 days. 01/20 completed Not Available Not Available Not Available Kenalog 10 mg/mL suspension for injection Take 2 mg by injection route. 01/20 completed Not Available Not Available Not Available paroxetine 20 mg tablet TAKE ONE (1) TABLET EVERY DAY BY MOUTH active Not Available Not Available No t Available Xylocaine 20 mg/mL (2 %) injection solution Take 2 mg by injection route. 01/20 completed Not Available Not Available Not Available diltiazem CD 120 mg capsule,ext ended release 24 hr TAKE ONE (1) CAPSULE EVERY DAY BY ORAL ROUTE FOR 30 DAYS. active Not Available Not Available No t Available mupirocin 2 % topical ointment APPLY A SMALL AMOUNT TO THE AFFECTED AREA BY TOPICAL ROUTE THREE (3) TIMES PER DAY 12/01 completed Not Available Not Available Not Available zolpidem 5 mg tablet TAKE ONE (1) TABLET EVERY DAY BY ORAL ROUTE FOR 30 DAYS. 12/01 completed Not Available Not Available Not Available metoprolol succinate ER 25 mg tablet,exte nded release 24 hr TAKE ONE (1) TABLET EVERY DAY BY ORAL ROUTE FOR 30 DAYS. active Not Available Not Available No t Available ergocalcife rol (vitamin D2) 1,250 mcg (50,000 unit) capsule TAKE ONE (1) CAPSULE ONCE WEEKLY FOR 12 WEEKS 08/03 completed Not Available Not Available Not Available lorazepam 1 mg tablet TAKE 1 TABLET BY MOUTH NIGHTLY AT BEDTIME NEEDED FOR ANXIETY. active Not Available Not Available No t Available methylpredn isolone 4 mg tablets in a dose pack TAKE ONE (1) DOSE PACKET EVERY DAY BY ORAL ROUTE NEEDED FOR SIX (6) DAYS. active Not Available Not Available No t Available ondansetron 4 mg disintegrat ing tablet TAKE ONE (1) TABLET BY MOUTH EVERY FOUR (4) TO SIX (6) HOURS FOR FIVE (5) DAYS active Not Available Not Available No t Available escitalopra m 20 mg tablet TAKE 1 TABLET BY MOUTH ONCE DAILY. active Not Available Not Available No t Available metaxalone 800 mg tablet TAKE ONE (1) TABLET THREE (3) TIMES DAILY NEEDED 08/27 completed SW Not Available Not Available Not Available cyclobenzap rine 5 mg tablet TAKE ONE (1) TABLET THREE (3) TIMES A DAY BY MOUTH 03/18 completed Not Available Not Available Not Available nitrofurant oin monohydrate /macrocryst als 100 mg capsule TAKE ONE (1) CAPSULE BY MOUTH EVERY 12 HOURS FOR 7 DAYS 12/01 completed Not Available Not Available Not Available duloxetine 30 mg capsule,del ayed release TAKE ONE (1) CAPSULE EVERY DAY FOR ONE (1) WEEK THEN ONE (1) CAPSULE TWICE DAILY FOR REMAINDER active Not Available Not Available No t Available Cymbalta 60 mg capsule,del ayed release Take 1 capsule every day by oral route. 09/07 completed SW Not Available Not Available Not Available cholecalcif adela (vitamin D3) 25 mcg (1,000 unit) tablet TAKE 1 TABLET BY MOUTH EVERY DAY 12/01 completed Not Available Not Available Not Available peg 3350-electr olytes 236 gram-22.74 gram-6.74 gram-5.86 gram solution USE DIRECTED 08/03 completed Not Available Not Available Not Available FeroSul 325 mg (65 mg iron) tablet TAKE ONE (1) TABLET BY MOUTH TWICE DAILY active Not Available Not Available No t Available diclofenac 1 % topical gel APPLY 2 GM TOPICALLY TO THE AFFECTED AREA(S) 4 TIMES DAILY. active Not Available Not Available No t Available Vitamin D3 25 mcg (1,000 unit) chewable tablet TAKE ONE CAPSULE EVERY DAY BY MOUTH . STOP VITAMIN D3 10 MCG (400 UNIT) active Not Available Not Available No t Available Contrave 8 mg-90 mg tablet,exte nded release TAKE 1 TAB IN THE AM FOR WEEK 1, 1 TWICE A DAY FOR WEEK 2, 2 IN THE AM & 1 IN PM FOR WEEK 3, 2 TABS TWICE DAILY AFTER active Not Available Not Available No t Available Vitals None Recorded Social History None recorded. Functional Status Question Answer Note LastModified by Organizat ion Details LastModified Time Do you use any illicit or recreational drugs? No Information not available 08/03/2022 Do you or have you ever used any other forms of tobacco or nicotine? No [email or web address] Information not available 02/09/2023 What is your level of alcohol consumption? None [email or web address] Information not available 08/03/2022 Mental Status None recorded. Family History Relationship Description Onset Age of this Age Resolved Age Notes LastModified by Organization Details LastModified Time Father Heart disease [email or web address] Not available 14:16:55 Mother Heart disease [email or web address] Not available 14:16:55 Medical History Condition Response Coronary Artery Disease Y Obesity Y Vision or Eye Problems Y Arthritis Y High Cholesterol Y Psychiatric/Mental Health Condition Y Arrhythmia Y Headaches Y GI Problems Y Hyperlipidemia Y Back Problems Y Hypertension Y Gynecological HistoryNo gynecological history recorded. Obstetrics History GPAL:G 0 P 0 0 0 0 Immunizations Vaccine Type Date Status Note Provider Nam e and Address Organization Details Recorded Time Influenza, split virus, trivalent, preservative 9 completed Denise Bart null, [place] [facility] [place] & [place] 08/27/2022 09:30:57 Hep A, adult 1 completed Denise [place] null[place] [facility] [place] & [place] 08/27/2022 09:30:57 Tdap 6 completed Den[place] null[place] [facility] [place] & [place] 08/27/2022 09:30:57 Hep B, adult 1 completed Den[place] [facility] & [place] 08/27/2022 09:30:57 Influenza, split virus, quadrivalent, preservative 8 completed Den[place] null[place] [facility] 08/27/2022 09:30:57 Influenza, split virus, quadrivalent, PF 6 completed Denise [place] null[place] [facility] & [place] 08/27/2022 09:30:57 Past Encounters Encounter ID Performer Location Encounter Start Date Encounter Closed Date Diagnosis/Indication Diagnosis SNOMED-CT Code Diagnosis ICD10 Code Diagnosis Note [id number] BECK STEINER NP, S [place] [address] WH[place]LEY [address] [place] [phone] 08/03/2022 13:36:31 08/03/2022 14:17:53 Coronary arteriosclerosis 36434471 I25.10 Essential hypertension 90445079 I10 Tachycardia 1480587 R00. 0 Paroxysmal supraventricular tachycardia 40300749 I47.1 Patient Education was printed, I have reviewed the Past Medical, Family and Social Histories along with ROS and all orders in today's record, and have noted any changes.Me dications, charts and records reviewed in full today..blo od pressure 146/98 with a repeat blood pressure 126/70, heart rate 62, weight 203.6 lb.. Loop recorder: 07/2022. Over the last week the patient has had several symptom episodes which have involved episodes of nonsustain ed supraventr icular tachycardi a sent as symptom episodes. The patient's SVT typically ranges between 150 and 180 beats per minute. Symptoms generally include shortness of breath, palpitatio ns, tachycardi a, and fluttering . LAST ECHO: 03/2022 revealed an LVEF of 55% to 60% with trivial MR. LAST ISCHEMIC EVAL: None on file. LAST HEART CATH: 03/2022 revealed mild coronary artery disease. LAST LDL: 03/2022 revealed LDL of 92. LAST CNI: None on file. Zio monitor: 03/2022 reveals sinus tachycardi a to a rate of 120 beats per minute. Atrial couplets. Rare PVCs and PACs..Plan :Referral to electrophy siology. The patient has symptomati c episodes of supraventr icular tachycardi a. The patient is a poor candidate for further negative chronotrop ic medication s due to her overall low heart rate. Her loop recorder reveals that her heart rate is frequently bradycardi c into the 40s. We would appreciate the opinion of electrophy siology regarding definitive evaluation and management of the patient's symptomati c ectopy.Sarabjit martinez current plan of care otherwise. Follow-up in 3 to 4 weeks..-Co ntinue other current medication s.-Continu e aggressive risk factor modificati on.-Recomm end LDL less than 70.-Encour aged regular exercise and activity.. ...This note was dictated using [employer] Translate software. If something is unclear, or does not make sense, please do not hesitate to contact our office at for clarificat ion. Obstructiv e sleep apnea of adult 4875056135 103 G47.33 Intermitte nt palpitations 676106233 R00.2 Sinus bradycardia 841129 05 R00.1 [id number] BECK STEINER NP, S [address] WH[place]LEY [address] [place] [id number] 08/11/2022 13:29:07 08/11/2022 13:51:25 Paroxysmal supraventricular tachycardia 10229104 I47.1 Patient Education was printed, I have reviewed the Past Medical, Family and Social Histories along with ROS and all orders in today's record, and have noted any changes.Me dications, charts and records reviewed in full today.. . Loop recorder: 07/28/2022 to 07/30/2022. Over the last week the patient has had several symptom episodes which have involved episodes of nonsustain ed supraventr icular tachycardi a sent as symptom episodes. The patient's SVT typically ranges between 150 and 180 beats per minute. Symptoms generally include shortness of breath, palpitatio ns, tachycardi a, and fluttering . LAST ECHO: 03/2022 revealed an LVEF of 55% to 60% with trivial MR. LAST ISCHEMIC EVAL: None on file. LAST HEART CATH: 03/2022 revealed mild coronary artery disease. LAST LDL: 03/2022 revealed LDL of 92. LAST CNI: None on file. Zio monitor: 03/2022 reveals sinus tachycardi a to a rate of 120 beats per minute. Atrial couplets. Rare PVCs and PACs..Plan :Defer symptomati c PAC and SVT management to electrophy siology. The patient has symptomati c episodes of supraventr icular tachycardi a. The patient is a poor candidate for further negative chronotrop ic medication s due to her overall low heart rate. Her loop recorder reveals that her heart rate is frequently bradycardi c into the 40s. We would appreciate the opinion of electrophy siology regarding definitive evaluation and management of the patient's symptomati c ectopy.Sta rt Hydroxyzin e for insomnia. Safety discussion given.Refi ll Plavix.Con tinue current plan of care otherwise. Follow-up in 3 to 4 weeks..-Co ntinue other current medication s.-Continu e aggressive risk factor modificati on.-Recomm end LDL less than 70.-Encour aged regular exercise and activity.. ...This note was dictated using [employer] software. If something is unclear, or does not make sense, please do not hesitate to contact our office at for clarificat ion. Coronary arteriosclerosis 90391113 I25.10 Essential hypertension 78169607 I10 Intermitte nt palpitations 907265897 R00.2 Tachycardia 5921980 R00. 0 Obstructiv e sleep apnea of adult 8309496324 103 G47.33 Sinus bradycardia 683193 05 R00.1 Insomnia 853021095 G47.0 0 [id number] Davi Ortega MD [facility] [address] [place] [address] 9 08/13/2022 09:04:08 08/13/2022 10:02:52 Closed fracture of fifth metatarsal bone 32058183 S92.352A [id number] MD RODOLFO [facility] [address] [place] [address] 9 08/24/2022 09:07:22 08/24/2022 10:03:38 Closed fracture of fifth metatarsal bone 58764723 S92.352D Fracture o f phalanx of foot 61078284 S92.911A [id number] BECK STEINER NP, S [address] WH[place]LEY [address] [place] [address] 6 08/20/2022 11:57:25 08/20/2022 12:34:23 Cardiac implant in situ 878786688 Z95.818 [id number] BECK STEINER NP, S ROD[place] [address] [place] [address] [place] [address] 6 09/08/2022 13:36:38 09/08/2022 14:47:47 Cardiac implant in situ 341687733 Z95.818 Loop recorder Paroxysmal supraventricular tachycardia 47695481 I47.1 Coronary arteriosclerosis 69929549 I25.10 Essential hypertension 19189570 I10 Intermitte nt palpitations 278317412 R00.2 Tachycardia 6982166 R00. 0 Obstructiv e sleep apnea of adult 3227699162 103 G47.33 Sinus bradycardia 626448 05 R00.1 Insomnia 980036115 G47.0 0 follow-up with PCP. [id number] BECK STEINER NP, S R[place] [address] WH[place] [address] [place] [address] 6 09/22/2022 15:44:28 09/22/2022 16:03:27 Cardiac implant in situ 522239298 Z95.818 Loop recorder Paroxysmal supraventricular tachycardia 88398705 I47.1 Coronary arteriosclerosis 19660919 I25.10 Essential hypertension 90766617 I10 Intermitte nt palpitations 418045720 R00.2 Tachycardia 2058638 R00. 0 Obstructiv e sleep apnea of adult 1247679765 103 G47.33 Sinus bradycardia 678908 05 R00.1 Insomnia 199302180 G47.0 0 follow-up with PCP. [id number] MD [facility] [address] [place] [address] 09/28/2022 10:32:31 09/28/2022 11:36:14 Closed fracture of fifth metatarsal bone 92603920 S92.352D Fracture o f phalanx of foot 46325430 S92.911A Arthritis of right knee 0976222243 095137 M13.861 [id number] BECK STEINER NP, S [address] [place] [address] [place], [place] [phone] 10/05/2022 12:04:03 10/05/2022 12:04:23 Cardiac implant in situ 730818819 Z95.818 Loop recorder Paroxysmal supraventricular tachycardia 87622702 I47.1 Coronary arteriosclerosis 59275605 I25.10 Essential hypertension 26487174 I10 Intermitte nt palpitations 434530389 R00.2 Tachycardia 4467887 R00. 0 Obstructiv e sleep apnea of adult 8446623879 103 G47.33 Sinus bradycardia 067266 05 R00.1 Insomnia 040661815 G47.0 0 follow-up with PCP. [id number] MD RODOLFO Ocampo [address] WH[place] [address] [place] [id number] 10/13/2022 10:57:48 10/13/2022 11:44:23 Essential hypertension 89636128 I10 Cardiac im plant in situ 981425162 Z95.818 Loop recorder Paroxysmal supraventricular tachycardia 53251304 I47.1 Coronary arteriosclerosis 67348642 I25.10 Intermitte nt palpitations 947776919 R00.2 Tachycardia 1779691 R00. 0 Obstructiv e sleep apnea of adult 4336554553 103 G47.33 Sinus bradycardia 800255 05 R00.1 Insomnia 903675735 G47.0 0 follow-up with PCP. History of bariatric surgical procedure 083505157 Z98.84 [id number] BECK STEINER NP, S [address] [place] [address] [place] [address] 6 01/17/2023 16:41:11 01/17/2023 16:41:36 Essential hypertension 41544452 I10 Cardiac im plant in situ 392689503 Z95.818 Loop recorder Paroxysmal supraventricular tachycardia 08624331 I47.1 Coronary arteriosclerosis 35478574 I25.10 Intermitte nt palpitations 451294365 R00.2 Tachycardia 4961125 R00. 0 Obstructiv e sleep apnea of adult 1499231804 103 G47.33 Sinus bradycardia 465012 05 R00.1 Insomnia 538194558 G47.0 0 follow-up with PCP. History of bariatric surgical procedure 647389237 Z98.84 [id number] BECK STEINER NP, S [address] [place] [address] [place], [place] [phone] 01/20/2023 14:17:50 01/20/2023 15:11:30 Essential hypertension 52442491 I10 Cardiac im plant in situ 265116132 Z95.818 Loop recorder Paroxysmal supraventricular tachycardia 78756945 I47.1 Coronary arteriosclerosis 47328954 I25.10 Intermitte nt palpitations 936209599 R00.2 Tachycardia 4349500 R00. 0 Obstructiv e sleep apnea of adult 5876505194 103 G47.33 Sinus bradycardia 055458 05 R00.1 Insomnia 896955598 G47.0 0 Follow-up with PCP. Headache 22867762 R51.9 Dizziness 611900666 R42 [id number] BECK STEINER NP, S [address] WH[place] [address] [place], [place] [id number] 6 03/21/2023 14:47:38 03/21/2023 15:39:12 Essential hypertension 57377788 I10 Cardiac im plant in situ 768683712 Z95.818 Loop recorder Paroxysmal supraventricular tachycardia 31267787 I47.1 Coronary arteriosclerosis 55083608 I25.10 Intermitte nt palpitations 099089369 R00.2 Tachycardia 0411244 R00. 0 Obstructiv e sleep apnea of adult 4636984247 103 G47.33 Sinus bradycardia 151526 05 R00.1 Insomnia 345903348 G47.0 0 Follow-up with PCP. Headache 10791447 R51.9 Dizziness 768636414 R42 Angina pectoris 19267524 0 I20.9 Dyspnea on exertion 6084 5006 R06.09 [id number] BECK STEINER NP, S [address] [place] [address] [place] [address] 6 11/25/2023 11:02:37 11/25/2023 11:03:39 Near syncope [id number] R55 Implantabl e loop recorder in situ [id number] Z95.818 [id number] BECK STEINER NP, S [address] WHITLEY [address] [place] [address] 6 12/01/2023 10:30:39 12/01/2023 11:35:35 Essential hypertension 65636351 I10 Cardiac im plant in situ 344843893 Z95.818 Loop recorder Paroxysmal supraventricular tachycardia 78807255 I47.10 Coronary arteriosclerosis 79070513 I25.10 Intermitte nt palpitations 290861937 R00.2 Tachycardia 8885252 R00. 0 Obstructiv e sleep apnea of adult 1173994665 103 G47.33 Sinus bradycardia 186327 05 R00.1 Insomnia 101638822 G47.0 0 Headache 16522232 R51.9 Dizziness 987662499 R42 Angina pectoris 16015522 0 I20.9 Dyspnea on exertion 6084 5006 R06.09 [id number] BECK STEINER NP, S [place] [address] WH[place]LEY [address] [place] [address] 6 01/20/2024 12:11:25 01/20/2024 12:12:05 Near syncope 616106906 R55 Implantabl e loop recorder in situ 1358320598 Z95.607 [id number] BECK STEINER NP, S [place] [address] WH[place]LEY [address] [place] [address] 6 02/24/2024 12:04:33 02/24/2024 12:04:53 Near syncope 186846436 R55 Implantabl e loop recorder in situ 7711793608 Z95.096 [id number] BECK STEINER NP, S [address] [place] [address] 04/13/2024 12:41:55 04/13/2024 12:42:30 Near syncope 553729177 R55 Implantabl e loop recorder in situ 1650779822 Z95.789 [id number] BECK STEINER NP, S [address] [place] [address] 05/18/2024 13:56:34 05/18/2024 13:57:23 Near syncope 605279716 R55 Implantabl e loop recorder in situ 6792928445 Z95.821 [id number] BECK STEINER NP, S [address] WH[place]LEY [address] [place] [address] 06/22/2024 12:24:24 06/22/2024 12:25:13 Near syncope 283655835 R55 Implantabl e loop recorder in situ 7775702419 Z95.818 Health Concerns Section Related Observation LastModified by Organization Detai ls LastModified Time None Recorded Concern Status LastModified by Organization Details LastModified Time None Recorded Advance Directives Directive None Recorded Payers Insurance Date Sequence Insurance Name Policy Number Policy Siu Covered Member ID Siu Member ID Guarantor Name 12/01/2023 1 [employer] ([place]) [id number] S Karla L Quanmire [id number] Karla Colemire 02/27/2024 SLIDING FEE SCHEDULE - DISCOUNT Karla Colemire 12/01/2023 1 [employer] [id number] Karla Colemire [id number] Karla Colemire 12/01/2023 2 [place] [facility] [employer] [place] FFS/TRADITIO NAL Karla Colemire [id number] Karla Colemire 02/27/2024 1 [facility] (MEDICAID O) Karla Neri [id number] Karla Neri 12/01/2023 1 [place] [id number] Karla Neri [id number] Karla Neri 12/01/2023 2 [employer] [place] Karla Neri [id number] Karla Neri OBGyn Episode No OBEpisode recorded.
--- NOTE | 2025-04-16 07:30 | NM_ITS ---
APPROVED REPORT Exam: Nuclear Stress Test Indication: Chest pain, SOB, Fatigue, HTN, Family history Patient Location: Outpatient Stress Tech: Jessie Bro SC Tech:Cony Dennison, ARRT, RT (R)(N) Ht: 5 ft 6 in Wt: 230 lbs Bra Size: 38D HR: 70 bpm BP: 123/86 mmHg BSA: 2.12 m2 TID: 1.11 BMI: 37.1 History: Chest pain, SOB, Fatigue, HTN, Family history Procedure: Patient received 0.4 mg of intravenous Lexiscan, resting heart rate 70 bpm, resting blood pressure 123/86 mmHg, with Lexiscan maximum heart rate achieved was 93 bpm which is % of the maximum predicted heart rate and blood pressure was 138/91 mmHg. With Lexiscan, patient denied any complaint of chest pain. Cardiac Stress and Resting SPECT Images: Cardiac Stress and Resting SPECT images were obtained using technetium 99m Myoview 31.4 mCi stress and 10.61 mCi at rest. Resting and stress imaging in supine and prone positions demonstrate no evidence of fixed or reversible perfusion defects. Gated imaging demonstrates normal global and regional LV systolic function. LVEF is calculated at 61%. Conclusion: No evidence of fixed or reversible perfusion defects. Gated imaging demonstrates normal global and regional LV systolic function. LVEF is calculated at 61%. Electronically signed by : Claudia Tsang MD 04/16/2025 13:49:02
[2025-04-16] MEDS: SODIUM CHLORIDE 0.9% 10ML SYR (RAD ONLY) 10 ML IV ×2 (08:55)
[2025-04-16] MEDS: REGADENOSON 0.4MG/5ML SYRINGE 0.4 MG IV (08:55)
[2025-04-16] MEDS: ISOTOPE MYOVIEW (PER STUDY) 1 DOSE IV (08:55)
== END 2025-04-16 23:59 | disposition home or self-care (01) ==
LOC: RAD 07:14
PROVIDERS: PCP Family Medicine; Visit Provider Physician Assistant
DX: R07.89 Other chest pain (principal); R53.83 Other fatigue; R60.9 Edema, unspecified; R94.31 Abnormal electrocardiogram [ECG] [EKG]; R42 Dizziness and giddiness; I10 Essential (primary) hypertension; Z82.49 Family history of ischemic heart disease and other diseases of the circulatory system
CPT/HCPCS: 78452; 93017; 93018; A9502; J2785

== ENCOUNTER 2025-04-30 08:17 | Day surgery (SDC) | payer MEDICAID, SELFPAY ==
[2025-04-30 08:20] VITALS: BP 140/98; PULSE 57; RESP 16; O2SAT 98; BMI 37.1
--- NOTE | 2025-04-30 08:29 | P.PCN_ITS ---
Procedure Date: 04/30/25 Time: 08:30 Anesthesiologist:: Patricio Veloz CRNA Complications:: None Pre-procedure Diagnosis:: Bilateral trochanteric bursitis Post-procedure Diagnosis:: Same Indications for Procedure:: Patient is a very pleasant 54-year-old female who comes our clinic today for bilateral trochanteric bursa injections of cortisone local anesthetic. Patient describes lateral bilateral hip pain as constant, dull, sharp, stabbing. She has extreme point tenderness over the bilateral trochanteric bursa area. She rates her pain 7/10. Procedure Details:: Procedure: Bilateral trochanteric bursa joint injections under fluoroscopy Informed consent was obtained and the risks and benefits of the procedure were explained to the patient.~ The patient was taken to the procedure room and noninvasive monitors were placed including a noninvasive blood pressure cuff and pulse oximeter.~ The patient was placed prone on the procedure table. Both hips were cleansed using Betadine as a cleansing solution. C-arm fluoroscopy was used to view the right trochanteric bursa joint.~ The skin and subcutaneous tissues were anesthetized using lidocaine 1.5% and a 25-gauge needle.~ After this, a 22- gauge spinal needle was inserted under fluoroscopic guidance into the inferior aspect of the right trochanteric bursa.~ Omnipaque dye was injected and good spread was seen throughout the joint.~ After this, approximately 5 mL of bupivacaine, 0.25% and Depo-Medrol, 40 mg was incrementally injected into the right sacroiliac joint. We then moved to the left trochanteric bursa joint.~ The skin and subcutaneous tissues were anesthetized using lidocaine 1.5% and a 25-gauge needle.~ After this, a 22-gauge spinal needle was inserted under fluoroscopic guidance into the inferior aspect of the left trochanteric bursa joint.~ Omnipaque dye was in jected and good spread was seen throughout the joint. After this, approximately 5 mL of bupivacaine, 0.25% and Depo-Medrol, 40 mg was incrementally injected into the left sacroiliac joint.~ The patient tolerated the procedure well with no complications. The patient was observed in the Pain Clinic and then was discharged home neurologically intact. Plan and Disposition:: Patient was discharged without incident.
[2025-04-30] MEDS: BUPIVACAINE 0.25% 10ML INJ 25 MG IJ (08:30)
[2025-04-30] MEDS: LIDOCAINE 1% 5ML PF VIAL 5 ML (08:31)
[2025-04-30] MEDS: DEXAMETHASONE 10MG/ML 1ML VIAL 10 MG (08:31)
[2025-04-30 08:32] VITALS: BP 144/86; PULSE 67; RESP 18; O2SAT 97
[2025-04-30 08:33] VITALS: BP 144/86; PULSE 61; RESP 18; O2SAT 97
[2025-04-30 08:41] VITALS: BP 127/90; PULSE 60; RESP 18; O2SAT 99
== END 2025-04-30 08:41 | disposition home or self-care (01) ==
PROVIDERS: PCP Family Medicine; Visit Provider Nurse Anesthetist, Certified Registered
DX: M70.62 Trochanteric bursitis, left hip (principal); M70.61 Trochanteric bursitis, right hip; I48.91 Unspecified atrial fibrillation; F41.9 Anxiety disorder, unspecified; F31.9 Bipolar disorder, unspecified; F32.A Depression, unspecified; I10 Essential (primary) hypertension; F43.10 Post-traumatic stress disorder, unspecified; Z88.8 Allergy status to other drugs, medicaments and biological substances; Z79.899 Other long term (current) drug therapy
CPT/HCPCS: 20610; 77002; J0665; J1100; J2003

== ENCOUNTER 2025-05-20 07:50 | Outpatient (CLI) | payer MEDICAID, SELFPAY ==
--- OUTSIDE RECORDS SUMMARY | 2025-05-20 07:52 | XMS_ITS | Encounter Summary ---
Author Organization Healthcare Address [address] [place] [address] Care Team Providers Care Perpetual Inventory Clerk Name Role Phone Bety Greene MD Primary Care Provider +1- [phone] Encounter Details Date Type Department Care Team (Latest Contact Info) Description 09/17/2021 [facility] [address] [place] [id number] Nilson Mejía MD [address] [place] [address] [place] [address] Nonintractable headache, unspecified chronicity pattern, unspecified headache [...] Primary documented in this encounter Care Teams Perpetual Inventory Clerk Relationship Specialty Start Date End Date Bety Greene MD [address] [place] [address] PCP - General 03/20/21 documented as of this encounter
--- OUTSIDE RECORDS SUMMARY | 2025-05-20 07:52 | XMS_ITS | Encounter Summary ---
Author Organization [facility] Address [address] [place] [address] Care Team Providers Care Brick Wheeler Name Role Phone Bety Greene MD Primary Care Provider +1- [phone] Reason for Referral * Consultation (Routine) - Authorized Specialty Diagnoses / Procedures Referred By Allison levin Referred To Contact Pain Medicine Diagnoses Lumbar radiculopathy Jasen Torres DO [address] [place] [address] [place] [address] Phone: tel: fax: [facility] Interventional Pain Medicine [address] [place] [phone] Phone: tel: fax: Referral ID Status Reason Start Date Expiration Date Visits Requested Visits Authorized [id number] Authorized Specialty Services Required 08/07/2024 02/06/2026 1 1 Encounter Details Date Type Department Care Team (Latest Contact Info) Description 08/07/2024 [facility] [address] [place] [address] Jasen Torres DO [address] [facility] [address] [place] [address] Lumbar radiculopathy (Primary Dx) Social History Tobacco [...] unspecified documented in this encounter Care Teams Brick Wheeler Relationship Specialty Start Date End Date Bety Greene MD [address] [place] [address] PCP - General 03/20/21 documented as of this encounter
--- OUTSIDE RECORDS SUMMARY | 2025-05-20 07:52 | XMS_ITS | Encounter Summary ---
Author Organization Healthcare Address [address] [place] [id number] Care Team Providers Care Order Tracer Name Role Phone Bety Greene MD Primary Care Provider +1- [phone] Encounter Details Date Type Department Care Team (Late st Contact Info) Description 08/31/2021 Community [facility] [address] [place] [address] Nilson Mejía MD [address] [place] [address] [place] [address] Positive OLIVA (antinuclear antibody) (Primary Dx) Social [...] findings documented in this encounter Care Teams Order Tracer Relationship Specialty Start Date End Date Bety Greene MD [address] [place] [address] PCP - General 03/20/21 documented as of this encounter
--- OUTSIDE RECORDS SUMMARY | 2025-05-20 07:52 | XMS_ITS | Data Portability ---
Author Organization Formerly [facility] Address [address] [place] [address] Care Team Providers Care Bottler Helper Name Role Phone MAISHA PEREZ Urologist Assessment No assessment recorded. Plan of Treatment Reminders Order Date Submit Date Provider Last Modified By Organization Details Last Modified Time Details Appointments None recorded. Lab urinalysis, dipstick 2022 023 estela 4 [facility], [address] [place] [address] , [place], [address], 3 14:10:20 culture, urine 2022 023 KHANG [facility], [address], [place], [place], [address], 3 22:07:01 HbA1c (hemoglobin A1c), blood 2022 023 alandreth 4 [facility], [address], [place], [place], [address], 3 13:10:49 CMP, serum or plasma 2022 023 alandreth 4 [facility], [address], [place], [place], [address], 3 13:10:49 CBC w/ auto diff 2022 023 [email or web address] 4 [facility], [address], [place], [place], [address], 3 13:10:50 TSH + free T4, serum 2022 023 alandreth 4 [facility], [address], [place] [address], [place], [address], 3 13:10:50 lipid panel, serum 2022 023 alandret 4 [facility], [address], [place] [address], [place], [address], 3 13:10:50 drug screen, 14 drugs (detectimed ), urine 2022 023 alandreth 4 [facility], [address], [place] [address], [place], [address], 3 15:37:40 vitamin B12 + folate, serum or blood 2022 023 [email or web address], [address], [place], [place], [address], 3 13:10:49 unlisted lab - compliance drug josiane, no THC 2022 023 KHANG [facility], [address], [place], [place], [address], 3 20:08:35 drug screen, 14 drugs (detectimed ), urine 2022 023 KHANG [facility], [address], [place], [place], [address], 3 16:13:01 vitamin B12 + folate, serum or blood 2022 023 KHANG [facility], [address], [place], [place], [address], 3 07:13:36 CBC w/ auto diff 2022 023 KHANG [facility], [address], [place], [place], [address], 3 07:13:34 CMP, serum or plasma 2022 023 KHANG [facility], [address], [place] [address], [place], [address], 3 07:13:34 iron + total iron-bindin g capacity (TIBC), serum 2022 023 KHANG [facility], [address], [place], [place], [address], 3 07:13:35 magnesium, serum or plasma 2022 023 KHANG [facility], [address], [place], [place], [address], 3 07:13:38 TSH + free T4, serum 2022 023 KHANG [facility], [address], [place], [place], [address], 3 07:13:33 HbA1c (hemoglobin A1c), blood 2022 023 KHANG [facility], [address], [place], [place], [address], 3 07:13:36 ESR (erythrocyt e sedimentati on rate), blood 2022 023 KHANG [facility], [address], [place] [address], [place], [address], 3 07:13:38 vitamin D, 25-hydroxy, total, serum 2022 023 KHANG [facility], [address], [place], [place], [address], 3 07:13:37 TSH, ultra-sensi tive, serum 2021 KHANG [facility], [address], [place], [place], [address], 2 08:21:33 vitamin D, 25-hydroxy, total, serum 2021 KHANG [facility], [address], [place], [place], [address], 2 08:21:34 Referral orthopedic surgeon referral - Hip pain x1 year, Jamari referred previously patient states she did not get a call 2022 023 estela 4 [facility], [address] [place] [address] , [place], [address], 4 20:08:21 nutritionis t/dietitian referral 2022 023 estela 4 Alexia Abbott, [address] [place] [address] , [place], [address], 4 10:25:53 neurologist referral 2021 mary Ocasio MD, [address] [place] [address], [place], [address], 3 15:02:12 orthopedic surgeon referral 2021 022 mary Ortega MD, [address] [place] [address] , [place], [address], 3 15:02:02 mental health counselor referral 2021 teddy Not available 2 11:44:06 physical therapist referral 2021 022 [facility], [address], [place], [address], 3 15:01:51 pain management referral 2021 022 [email or web address] Not available 3 15:02:23 Procedures None recorded. Surgeries None recorded. Imaging US, duplex, venous, lower extremity 2022 023 [facility], [address] [facility] , [place], [address], 3 11:30:07 MRI, brain, w/o contrast 2022 023 Larissa (Centralized Scheduling), [facility] [place], [address], 3 16:07:49 MRI, brain, w/wo contrast 2021 022 KHANG Dias (Centralized Scheduling), [place], [address], 2 10:39:20 XR, hip, unilateral, 2 or 3 view 2021 022 KHANG Not available 2 11:27:00 MRI, lumbar spine, w/o contrast 2021 022 [email or web address] [place] (Centralized Scheduling), [facility] [place], [address], 2 12:03:36 US, duplex, venous, lower extremity, complete 2021 022 KHANG Not available 2 11:28:58 XR, ankle + foot 2021 022 [email or web address] Not available 13:36:34 Medication Orders Macrobid 100 mg capsule 2022 023 [facility], [address] [place] [address], [place], [address], 3 14:13:03 acyclovir 400 mg tablet [address], [address], 3 14:30:06 diclofenac 1 % topical gel [address], [address], 3 14:30:04 cyanocobala min (vit B-12) 1,000 mcg/mL injection solution 2022 023 Not available 3 14:59:26 phentermine 37.5 mg tablet [address], [address], 3 14:22:30 zolpidem 5 mg tablet [address], [address], 3 10:09:12 cyclobenzap rine 10 mg tablet [address], [address], 3 10:08:59 venlafaxine ER 37.5 mg capsule,ext ended release 24 hr 2022 023 alandreth [address], [address], 3 14:29:21 venlafaxine ER 75 mg capsule,ext ended release 24 hr [address], [address], 3 10:09:04 cholecalcif adela (vitamin D3) 25 mcg (1,000 unit) capsule [address], [address], 3 10:09:04 acyclovir 400 mg tablet [address], [address], 3 10:09:01 diltiazem CD 120 mg capsule,ext ended release 24 hr [address], [address], 3 10:09:00 metoprolol succinate ER 25 mg tablet,exte nded release 24 hr [address], [address], 3 10:09:00 diclofenac 1 % topical gel [address], [address], 3 10:09:01 clopidogrel 75 mg tablet [address], [address], 3 10:09:03 Contrave 8 mg-90 mg tablet,exte nded release [address] [place] [address], [address], 3 13:42:01 Ambien 5 mg tablet [address], [address], 3 16:09:48 duloxetine 30 mg capsule,del ayed release [address], [address], 3 10:01:58 mupirocin 2 % topical ointment [address], [address], 3 16:09:46 Imitrex 50 mg tablet [address], [address], 3 15:35:18 trazodone 50 mg tablet [address], [address], 3 15:47:30 cyclobenzap rine 5 mg tablet [address], [address], 3 09:55:58 acyclovir 400 mg tablet 2021 [email or web address], [address], 2 09:35:54 Patient TargetsNo targets recorded. Patient Instructions Encounter Date Encounter Id Patient Instructions Last Modified By Organization Details Last Modified Time 02/02/2023 [id number] controlled substance agreement* Not available 02/02/2023 16:09:43 04/26/2023 [id number] anxiety disorder : care instructions Not available 04/26/2023 10:08:55 learning about healthy weight Not available 04/26/2023 10:08:56 body mass index: care instructions Not available 04/26/2023 10:08:55 depression treatment: care instructions Not available 04/26/2023 10:08:55 starting a weigh t loss plan: care instructions Not available 04/26/2023 10:42:21 06/13/2023 [id number] learning about healthy weight Not available 06/13/2023 [...] Physician: Family Ian Miles, Encounter Date: 07/22/2022 Engineering Intern/dietitian Refer ral for Body mass index 30+ [...] uIU/m L 0.450- 4.500 Not Available [facility] ([facility]) [address] [facility] [address], [place], [address], 07/23/2022 08:21:33 07/22/20 22 07/23/2022 VITAM IN D, 25-HY DROXY vitamin D, 25-hydroxy 29.5 NG/mL 30.0-1 00.0 below low normal Vitam in D defic iency has been defin ed by the Insti tute of [facility] ine and an Endoc rine Socie ty [...] um and D. Chase dixon [place]: [facility] Press . 2. Amalia agosto MF, Cathleen abdi [place], Annie off-F ashley i BATES, et al. Evalu ation , treat ment, and preve ntion of vitam in D defic iency : an Endoc rine Socie ty clini daniel pract ice guide line. JCEM. 2010; 96(7) :1911 -30. Not Available [facility] ([facility]) [address] [facility] [address], [place], [address], 07/23/2022 08:21:34 02/03/2002/03/2023 TSH+F REE T4 TSH 0.799 uIU/m L 0.450- 4.500 Not Available [facility] ([facility]) [address] [facility] [address], [place], [address], 02/03/2023 07:13:33 02/03/20 23 02/03/2023 TSH+F REE T4 T4,free(dire ct) 1.15 NG/dL 0.82-1 .77 Not Available [facility] ([facility]) [address] [facility] [address], [place], [address], 02/03/2023 07:13:33 02/03/20 23 02/03/2023 CBC WITH DIFFE RENTI AL/PL ATELE T WBC 5.5 x10e3 /uL 3.4-10 .8 Not Available [facility] ([facility]) [address] [facility] [address], [place], [address], 02/03/2023 07:13:34 02/03/2002/03/2023 CBC WITH DIFFE RENTI AL/PL ATELE T RBC 4.21 x10e6 /uL 3.77-5 .28 Not Available [facility] ([facility]) [address] [facility] [address], [place], [address], 02/03/2023 07:13:34 02/03/20 23 02/03/2023 CBC WITH DIFFE RENTI AL/PL ATELE T hemoglobin 13.1 g/dL 11.1-1 5.9 Not Available [facility] ([facility]) [address] [place], [address], 02/03/2023 07:13:34 02/03/20 23 02/03/2023 CBC WITH DIFFE RENTI AL/PL ATELE T hematocrit 38.9 % 34.0-4 6.6 Not Available [facility] ([facility]) [address] [place], [address], 02/03/2023 07:13:34 02/03/2002/03/2023 CBC WITH DIFFE RENTI AL/PL ATELE T MCV 92 fL 79-97 Not Available [facility] ([facility]) [address] [place], [address], 02/03/2023 07:13:34 02/03/20 23 02/03/2023 CBC WITH DIFFE RENTI AL/PL ATELE T MCH 31.1 pg 26.6-3 3.0 Not Available [facility] ([facility]) [address] [facility] [address], [place], [address], 02/03/2023 07:13:34 02/03/20 23 02/03/2023 CBC WITH DIFFE RENTI AL/PL ATELE T MCHC 33.7 g/dL 31.5-3 5.7 Not Available [facility] ([facility]) [address] [facility] [address], [place], [address], 02/03/2023 07:13:34 02/03/20 23 02/03/2023 CBC WITH DIFFE RENTI AL/PL ATELE T RDW 12.7 % 11.7-1 5.4 Not Available [facility] ([facility]) [address] [facility] [address], [place], [address], 02/03/2023 07:13:34 02/03/20 23 02/03/2023 CBC WITH DIFFE RENTI AL/PL ATELE T platelets 231 x10e3 /uL 150-45 0 Not Available [facility] ([facility]) [address] [facility] [address], [place], [address], 02/03/2023 07:13:34 02/03/20 23 02/03/2023 CBC WITH DIFFE RENTI AL/PL ATELE T neutrophils 51 % not estab. Not Available [facility] ([facility]) [address] [facility] [address], [place], [address], 02/03/2023 07:13:34 02/03/20 23 02/03/2023 CBC WITH DIFFE RENTI AL/PL ATELE T lymphs 38 % not estab. Not Available [facility] ([facility]) [address] [place], [address], 02/03/2023 07:13:34 02/03/20 23 02/03/2023 CBC WITH DIFFE RENTI AL/PL ATELE T monocytes 8 % not estab. Not Available [facility] ([facility]) [address] [facility] [address], [place], [address], 02/03/2023 07:13:34 02/03/20 23 02/03/2023 CBC WITH DIFFE RENTI AL/PL ATELE T eos 2 % not estab. Not Available [facility] ([facility]) [address] [facility] [address], [place], [address], 02/03/2023 07:13:34 02/03/20 23 02/03/2023 CBC WITH DIFFE RENTI AL/PL ATELE T basos 1 % not estab. Not Available [facility] ([facility]) [address] [facility] [address], [place], [address], 02/03/2023 07:13:34 02/03/20 23 02/03/2023 CBC WITH DIFFE RENTI AL/PL ATELE T immature cells MOPPER Not Available [facility] ([facility]) [address] [place], [address], 02/03/2023 07:13:34 02/03/20 23 02/03/2023 CBC WITH DIFFE RENTI AL/PL ATELE T neutrophils (absolute) 2.8 x10e3 /uL 1.4-7. 0 Not Available [facility] ([facility]) [address] [place], [address], 02/03/2023 07:13:34 02/03/20 23 02/03/2023 CBC WITH DIFFE RENTI AL/PL ATELE T lymphs (absolute) 2.1 x10e3 /uL 0.7-3. 1 Not Available [facility] ([facility]) [address] [place], [address], 02/03/2023 07:13:34 02/03/20 23 02/03/2023 CBC WITH DIFFE RENTI AL/PL ATELE T monocytes(ab solute) 0.5 x10e3 /uL 0.1-0. 9 Not Available [facility] ([facility]) [address] [facility] [address], [place], [address], 02/03/2023 07:13:34 02/03/20 23 02/03/2023 CBC WITH DIFFE RENTI AL/PL ATELE T eos (absolute) 0.1 x10e3 /uL 0.0-0. 4 Not Available [facility] ([facility]) [address] [facility] [address], [place], [address], 02/03/2023 07:13:34 02/03/20 23 02/03/2023 CBC WITH DIFFE RENTI AL/PL ATELE T baso (absolute) 0.1 x10e3 /uL 0.0-0. 2 Not Available [facility] ([facility]) [address] [facility] [address], [place], [address], 02/03/2023 07:13:34 02/03/20 23 02/03/2023 CBC WITH DIFFE RENTI AL/PL ATELE T immature granulocytes 0 % not estab. Not Available [facility] ([facility]) [address] [facility] [address], [place], [address], 02/03/2023 07:13:34 02/03/20 23 02/03/2023 CBC WITH DIFFE RENTI AL/PL ATELE T immature grans (abs) 0.0 x10e3 /uL 0.0-0. 1 Not Available [facility] ([facility]) [address] [facility] [address], [place], [address], 02/03/2023 07:13:34 02/03/20 23 02/03/2023 CBC WITH DIFFE RENTI AL/PL ATELE T NRBC MOPPER Not Available [facility] ([facility]) [address] [facility] [address], [place], [address], 02/03/2023 07:13:34 02/03/20 23 02/03/2023 CBC WITH DIFFE RENTI AL/PL ATELE T hematology comments: MOPPER Not Available [facility] ([facility]) [address] [facility] [address], [place], [address], 02/03/2023 07:13:34 02/03/20 23 02/03/2023 COMP. METAB OLIC PANEL (14) glucose 87 mg/dL 70-99 Not Available [facility] ([facility]) [address] [facility] [address], [place], [address], 02/03/2023 07:13:34 02/03/20 23 02/03/2023 COMP. METAB OLIC PANEL (14) BUN 9 mg/dL 6-24 Not Available [facility] ([facility]) [address] [place], [address], 02/03/2023 07:13:34 02/03/20 23 02/03/2023 COMP. METAB OLIC PANEL (14) creatinine 0.79 mg/dL 0.57-1 .00 Not Available [facility] ([facility]) [address] [facility] [address], [place], [address], 02/03/2023 07:13:34 02/03/20 23 02/03/2023 COMP. METAB OLIC PANEL (14) eGFR 89 mL/mi n/1.7 3 >59 Not Available [facility] ([facility]) [address] [place], [address], 02/03/2023 07:13:34 02/03/20 23 02/03/2023 COMP. METAB OLIC PANEL (14) BUN/creatini ne ratio 11 9-23 Not Available [facility] ([facility]) [address] [facility] [address], [place], [address], 02/03/2023 07:13:34 02/03/20 23 02/03/2023 COMP. METAB OLIC PANEL (14) sodium 140 mmol/ L 134-14 4 Not Available [facility] ([facility]) [address] [place], [address], 02/03/2023 07:13:34 02/03/20 23 02/03/2023 COMP. METAB OLIC PANEL (14) potassium 4.3 mmol/ L 3.5-5. 2 Not Available [facility] ([facility]) [address] [facility] [address], [place], [address], 02/03/2023 07:13:34 02/03/20 23 02/03/2023 COMP. METAB OLIC PANEL (14) chloride 102 mmol/ L 96-106 Not Available [facility] ([facility]) [address] [facility] [address], [place], [address], 02/03/2023 07:13:34 02/03/20 23 02/03/2023 COMP. METAB OLIC PANEL (14) carbon dioxide, total 27 mmol/ L 20-29 Not Available [facility] ([facility]) [address] [place], [address], 02/03/2023 07:13:34 02/03/20 23 02/03/2023 COMP. METAB OLIC PANEL (14) calcium 9.6 mg/dL 8.7-10 .2 Not Available [facility] ([facility]) [address] [place], [address], 02/03/2023 07:13:34 02/03/20 23 02/03/2023 COMP. METAB OLIC PANEL (14) protein, total 6.5 g/dL 6.0-8. 5 Not Available [facility] ([facility]) [address] [place], [address], 02/03/2023 07:13:34 02/03/20 23 02/03/2023 COMP. METAB OLIC PANEL (14) albumin 4.4 g/dL 3.8-4. 9 Not Available [facility] ([facility]) [address] [facility] [address], [place], [address], 02/03/2023 07:13:34 02/03/20 23 02/03/2023 COMP. METAB OLIC PANEL (14) globulin, total 2.1 g/dL 1.5-4. 5 Not Available [facility] ([facility]) [address] [place], [address], 02/03/2023 07:13:34 02/03/20 23 02/03/2023 COMP. METAB OLIC PANEL (14) A/G ratio 2.1 1.2-2. 2 Not Available [facility] ([facility]) [address] [facility] [address], [place], [address], 02/03/2023 07:13:34 02/03/20 23 02/03/2023 COMP. METAB OLIC PANEL (14) bilirubin, total 0.5 mg/dL 0.0-1. 2 Not Available [facility] ([facility]) [address] [place], [address], 02/03/2023 07:13:34 02/03/20 23 02/03/2023 COMP. METAB OLIC PANEL (14) alkaline phosphatase 126 IU/L 44-121 above high normal Not Available [facility] ([facility]) [address] [place], [address], 02/03/2023 07:13:34 02/03/20 23 02/03/2023 COMP. METAB OLIC PANEL (14) AST (SGOT) 28 IU/L 0-40 Not Available [facility] ([facility]) [address] [place], [address], 02/03/2023 07:13:34 02/03/20 23 02/03/2023 COMP. METAB OLIC PANEL (14) ALT (SGPT) 14 IU/L 0-32 Not Available [facility] ([facility]) [address] [place], [address], 02/03/2023 07:13:34 02/03/20 23 02/03/2023 IRON AND TIBC iron bind.cap.(TI BC) 294 ug/dL 250-45 0 Not Available [facility] ([facility]) [address] [facility] [address], [place], [address], 02/03/2023 07:13:35 02/03/20 23 02/03/2023 IRON AND TIBC UIBC 228 ug/dL 131-42 5 Not Available [facility] ([facility]) [address] [facility] [address], [place], [address], 02/03/2023 07:13:35 02/03/20 23 02/03/2023 IRON AND TIBC iron 66 ug/dL 27-159 Not Available [facility] ([facility]) [address] [facility] [address], [place], [address], 02/03/2023 07:13:35 02/03/20 23 02/03/2023 IRON AND TIBC iron saturation 22 % 15-55 Not Available [facility] ([facility]) [address] [facility] [address], [place], [address], 02/03/2023 07:13:35 02/03/20 23 02/03/2023 VITAM IN B12 AND FOLAT E vitamin B12 270 pg/mL 232-12 45 Not Available [facility] ([facility]) [address] [facility] [address], [place], [address], 02/03/2023 07:13:36 02/03/20 23 02/03/2023 VITAM IN B12 AND FOLAT E folate (folic acid), serum 15.7 NG/mL >3.0 A serum folat e robby ntrat ion of less than 3.1 ng/mL is consi dered to repre sent clini daniel defic iency . Not Available [facility] ([facility]) [address] [facility] [address], [place], [address], 02/03/2023 07:13:36 02/03/20 23 02/03/2023 HEMOG LOBIN A1C hemoglobin A1C 5.9 % 4.8-5. 6 above high normal Predi abete s: 5.7 - 6.4 Diabe komal: >6.4 Glyce chadwick contr ol for adult s with diabe komal: <7.0 Not Available [facility] ([facility]) [address] [facility] [address], [place], [address], 02/03/2023 07:13:36 02/03/20 23 02/03/2023 VITAM IN [...] IOM (Inst itute of Medic ine). 2009. Dieta ry refer ence intak es for calci um and D. Chase dixon [place]: The Natio counts include [facility] beds at the [facility] Press . 2. Amalia agosto MF, Cathleen abdi [place], Annie off-F errar i BATES, et al. Evalu ation , treat ment, and preve ntion of vitam in D defic iency : an Endoc rine Socie ty clini daniel pract ice guide line. JCEM. 2010; 96(7) :1911 -30. Not Available [facility] ([facility]) [address] [facility] [address], [place], [address], 02/03/2023 07:13:37 02/03/20 23 02/03/2023 SEDIM ENTAT ION RATE- WESTE RGREN sedimentatio n rate-westerg callum 16 mm/HR 0-40 Not Available [facility] ([facility]) [address] [facility] [address], [place], [address], 02/03/2023 07:13:38 02/03/20 23 02/03/2023 MAGNE SIUM magnesium 2.0 mg/dL 1.6-2. 3 Not Available [facility] ([facility]) [address], [place], [address], 02/03/2023 07:13:38 02/03/2002/08/2023 COMPL IANCE DRUG JOSIANE SIS, UR summary [...] ===== ===== ===== === Not Available [facility] ([facility]) [address] [place], [address], 02/08/2023 16:13:02/03/20 23 02/08/2023 COMPL IANCE DRUG JOSIANE SIS, UR pdf . Not Available [facility] ([facility]) [address] [place], [address], 02/08/2023 16:13:01 04/26/20 23 05/03/2023 COMPL IANCE DRUG JOSIANE [...] daniel consu ltati on, pleas e call [phone]. ===== ===== ===== ===== ===== ===== ===== ===== ===== ===== ===== ===== ===== === Not Available [facility] ([facility]) [address] [place], [address], 05/03/2023 20:08:35 04/26/20 23 05/03/2023 COMPL IANCE DRUG JOSIANE , NO THC pdf . Not Available [facility] ([facility]) [address] [place], [address], 05/03/2023 20:08:35 06/13/20 23 06/18/2023 URINE CULTU RE, ROUTI NE urine culture, routine Final report abnormal Not Available [facility] ([facility]) [address] [place], [address], 06/18/2023 22:07:00 06/13/20 23 06/18/2023 URINE CULTU [...] Prote us mirab ilis. Not Available [facility] ([facility]) [address] [facility] [address], [place], [address], 06/18/2023 22:07:00 06/13/20 23 06/18/2023 URINE CULTU [...] thopr im/Haque lfa S<=20 Not Available [facility] ([facility]) [address] [facility] [address], [place], [address], 06/18/2023 22:07:00 06/13/20 23 06/13/2023 urina lysis , dipst ick Leukocytes Trace Not Available [address] , [place], [address], 06/13/2023 13:56:16 06/13/20 23 06/13/2023 urina lysis , dipst ick Nitrite negati ve Not Available [address] , [place], [address], 06/13/2023 13:56:16 06/13/20 23 06/13/2023 urina lysis , dipst ick Urobilinogen .2 Not Available [address] , [place], [address], 06/13/2023 13:56:16 06/13/20 23 06/13/2023 urina lysis , dipst ick Protein Negati ve Not Available [address] , [place], [address], 06/13/2023 13:56:16 06/13/20 23 06/13/2023 urina lysis , dipst ick pH 5.0 Not Available [address] , [place], [address], 06/13/2023 13:56:16 06/13/20 23 06/13/2023 urina lysis , dipst ick Blood Negati ve Not Available [address] , [place], [address], 06/13/2023 13:56:16 06/13/20 23 06/13/2023 urina lysis , dipst ick Specific [place] 1.010 Not Available [address] , [place], [address], 06/13/2023 13:56:16 06/13/20 23 06/13/2023 urina lysis , dipst ick Ketone Negati ve Not Available [address] , [place], [address], 06/13/2023 13:56:16 06/13/20 23 06/13/2023 urina lysis , dipst ick Bilirubin Negati ve Not Available [address] , [place], [address], 06/13/2023 13:56:16 06/13/20 23 06/13/2023 urina lysis , dipst ick Glucose 100 Not Available [address] , [place], [address], 06/13/2023 13:56:16 06/13/20 23 06/13/2023 urina lysis , dipst ick Appearance Slight ly Cloudy Not Available [address] , [place], [address], 06/13/2023 13:56:16 06/13/20 23 06/13/2023 urina lysis , dipst ick Color Yellow Not Available [address] , [place], [address], 06/13/2023 13:56:16 07/22/20 22 XR, ankle , 3 or more view No observ ation record ed. [email or web address] Not Available 2021 00:41:51 07/22/20 22 XR, foot, 3 or more view No observ ation record ed. [email or web address] Not Available 07/09 16:07:34 07/22/20 22 XR, hip, unila teral , 2 or 3 view No observ ation record ed. [email or web address] Not Available 2021 20:54:52 07/22/20 22 US, duple x, venou s, lower extre mity, compl ete No observ ation record ed. [email or web address] Not Available 2021 20:54:02 08/09/20 22 08/09/2022 MRI, brain , w/wo contr ast [place] [facility] Name: ARMIN ANGULO [facility] Phys: Jamari ABDULLAHI,Nilson leonarde, [place] [address] : 1969 Age: 52 Sex: F Acct: [id number] Loc: Yaniv.MRI PHONE #: Exam Date: 2021 Status : REG CLI FAX #: Rad# [id number] Unit# [id number] Admit Date: 2021 EXAMS: CPT CODE: [id number] MRI BRAIN W/WO CONTRA ST [id number] MRI OF THE BRAIN WITH AND WITHOU [...] MD PAGE 1 Signed Report (CULLEN NUED) [facility] Name: ARMIN ANGULO [address] [place], [place] [address]a [facility] Phys: Nilson Mejía [place] [address] : 1969 Age: 52 Sex: F Acct: [id number] Loc: G.MRI PHONE #: Exam Date: 2021 Status : REG CLI FAX #: [phone] [id number] [id number] Rad# [id number] Unit# [id number] Admit Date: 2021 EXAMS: CPT CODE: [id number] MRI BRAIN W/WO CONTRA ST [id number] CC: Nilson Mejía MD Dictat ed Date/T [...] GALLEGOS Consul ting Provid er: JAMARI GALLEGOS [email or web address] , [place], [address], 08/17/2022 12:35:54 04/26/20 23 US, blanca x, amanda s, lower extre mity No observ ation record ed. [address] , [place], [address], 06/08/2023 14:28:01 Result Notes Documentation Provider Name and Address Organization Details Recorded Time Mri, Brain, W/wo Contrast : [facility] Ce Name: ARMANDO NERI [address] [place] [address] Phys: Nilson [place]ía [place] [address] : 1970 Age: 52 Sex: F Acct: [id number] Loc: G.MRI PHONE #: Exam Date: 08/09/2022 Status: REG CLI FAX #: [facility]# [id number] Unit# [id number] Admit Date: 08/09/2022 EXAMS: CPT CODE: [id number] MRI BRAIN W/WO CONTRAST 16218 MRI OF THE BRAIN WITH AND WITHOUT CONTRAST, 08/09/2022: CLINICAL HISTORY: Headache and dizziness COMPARISON: None. TECHNIQUE: Sagittal T1 and axial T1, T2, and diffusion weighted images, as well as coronal FLAIR images of the brain were obtained without the use of intravenous contrast. Following contrast administration, axial and coronal T1-weighted images were also obtained. FINDINGS: Intracranially, the ventricular and cisternal spaces are normal in size and shape for a patient of this. There is no dominant mass, midline shift, or hydrocephalus. There is no acute infarct on the diffusion-weighted images and no pathologic enhancement following contrast administration. There are 6 punctate foci of abnormal T2 hyperintensity within the periventricular white matter, concentrated in the left frontal lobe. There is a 9 mm mucous retention cyst versus polyp within the anterior sphenoid sinus. There is mild mucoperiosteal thickening of the inferior right maxillary sinus. The remainder the visualized paranasal sinuses and mastoid air cells are clear. The intraorbital contents are within normal limits. There is no suspicious osseous lesion IMPRESSION: 1. No acute intracranial process. 2. Several punctate foci of abnormal T2 hyperintensity within the periventricular white matter, likely secondary to chronic small vessel ischemia 3. Mild chronic sphenoid and right maxillary sinusitis at 1017 Reported and signed by: WESLY ONEILL MD PAGE 1 Signed Report (CONTINUED) [facility] Ce Name: ARMANDO NERI [facility] [employer] Phys: Nilson Mejía [place] [address] : 1970 Age: 52 Sex: F Acct: [id number] Loc: NorbertMRI PHONE #: Exam Date: 08/09/2022 Status: REG CLI FAX #: Rad# [id number] Unit# [id number] Admit Date: 08/09/2022 EXAMS: CPT CODE: [id number] MRI BRAIN W/WO CONTRAST 05453 CC: Nilson Mejía MD Dictated Date/Time: 08/09/2022 (1017) Technologist: KATHERINE BORDEN Transcribed Date/Time: 08/09/2022 (1017) Hvac Technician Residential: Electronic Signature Date/Time: 08/09/2022 (1017) Printed Date/Time: 08/09/2022 (1037) BATCH NO: N/A PAGE 2 Signed Report CC'ed Logic: Ordering Provider: JAMARI GALLEGOS Attending Provider: JAMARI GALLEGOS Referring Provider: JAMARI GALLEGOS Consulting Provider: JAMARI Starr null, [place] - [facility] 08/17/2022 12:35:54 Problems Name Problem SNOMED Code Status Onset Date Resolution Date Notes Provider Name and Address Organization Details Recorded Time Edema 762778801 Active Ninfa Padron null, [place] - [facility] 2 08:53:02 Allergic rhinitis 49030412 Active Ninfa Pad[place] null, [place] - [facility] 2 08:53:01 History of bariatric surgical procedure 643808574 Active 2019 Heber-n -Y Ninfa Padron null, [place] - [facility] 2 08:53:02 Ureteric stone 24102875 Active 2019 Not Available [facility] 1 19:23:52 Cobalamin deficienc y 150925995 Active 2019 Ninfa Padron null, [place] - [facility] 2 08:53:01 Pain in right knee Completed 201901/06/2021 Katherine Burch PA-C [address], [place], [address] , [place] - [facility] 1 09:45:50 Restless legs 21871080 Active 2019 Ninfa Padron null, [place] - [facility] 2 08:53:01 Osteoarth ritis of knee 164809842 Active 2019 Ninfa lopez, [place] - [facility] 2 08:53:01 Tear of meniscus of knee 719474437 Active 2019 Ninfa lopez, [place] - [facility] 2 08:53:02 Cervical disc disorder 620623927 Active 2015 Ninfa Padron null, [place] - [facility] 2 08:53:01 Reduced libido 2427544 Active 2015 PAUL Aleg[place] - [facility] 2 08:53:01 Depressiv e disorder 96259462 Active 2015 PAUL Aleg[place] - [facility] 2 08:53:01 Serum alkaline phosphata se above reference range 494914825 Active 2015 PAUL Alegre - [facility] 2 08:53:01 Fibromyal iban 918910371 Active 2015 PAUL Aleg[place] - [facility] 2 08:53:02 Liver enzymes level above reference range 314801645 Active 2015 PAUL Aleg[place] - [facility] 2 08:53:01 Increased liver function 65882483 Active 2015 PAUL Aleg[place] - [facility] 2 08:53:01 Gastroeso phageal reflux disease 827374651 Active 2015 PAUL Aleg[place] - [facility] 2 08:53:01 Irritable bowel syndrome 08038787 Active 2015 PAUL Aleg[place] - [facility] 2 08:53:01 Long-term drug therapy Active 2015 PAUL Aleg[place] - [facility] 2 08:53:01 Pain of multiple joints 39508443 Active 2015 PAUL Aleg[place] - [facility] 2 08:53:02 Sinus bradycard ia 60738098 Completed 201501/06/2021 Katherine Burch PA-C [address], [place], [address] , [place] - [facility] 1 09:46:03 Vitamin D deficienc y 13178473 Active 2015 Ninfa Padron null, [place] - [facility] 2 08:53:01 Exposure to SARS-CoV- 2 Active 2019 Ninfa Padron null, [place] - [facility] 2 08:53:02 Insomnia 649486579 Active 2015 Ninfa Padron null, [place] - [facility] 2 08:53:01 Coronary arteriosc lerosis 67622177 Active 2021 Ninfa Padron null, [place] - [facility] 2 08:53:01 History of cardiac catheteri zation 61156395380 100 Active Ninfa Padron null, [place] - [facility] 2 08:53:01 Pain in right foot 68523026359 9107 Active 2021 Ali Jamari null, [place] - [facility] 2 01:05:20 Anxiety 84591411 Active 2022 Nalini Rodriguez, CHIEF DEVELOPMENT OFFICER [address], [place], [address] , [place] - [facility] 3 10:07:17 Essential hypertens ion 29656774 Active 2022 Nalini Rodriguez, CHIEF DEVELOPMENT OFFICER [address], [place], [address] , [place] - [facility] 3 10:07:57 Iron deficienc y 85461347 Active 2016 iNnfa Padron null, [place] - [facility] 2 08:53:01 Problem Notes None recorded. Procedures Surgical History Date Name Laterality Status Provider Name and Address Organization Details Recorded Time 021 Diastolic B/P greater than or equal to 90 mm Hg completed [facility] 01/12/2021 09:51:31 021 Systolic B/P greater than or equal to 140 mm Hg completed [facility] 01/12/2021 09:51:26 020 Systolic B/P less than 130 mm Hg completed Lisa Bello [place] - [facility] 07/07/2020 14:08:05 020 Diastolic B/P 80-89 mm Hg completed Lisa Bello [place] - [facility] 07/07/2020 14:08:11 020 Diastolic B/P 80-89 [facility] [place] [facility]/09/2020 11:37:11 020 Systolic B/P greater than or equal to 140 mm Hg completed Lisa Bello [place] - [facility] 06/09/2020 11:37:07 020 Skin Tag Removal, Up to 15 Lesions completed Bety Greene [place] - [facility] 04/04/2020 19:32:27 020 Systolic B/P less than 130 mm Hg completed Lisa Bello [place] - [facility] 03/14/2020 16:33:47 020 Diastolic B/P 80-89 mm Hg completed Lisa Bello [place] - [facility] 03/14/2020 16:33:50 020 Diastolic B/P greater than or equal to 90 mm Hg completed Lisa Bello [place] - [facility] 01/21/2020 14:26:43 020 Systolic B/P greater than or equal to 140 mm Hg completed Lisa Bello [place] - [facility] 01/21/2020 14:26:38 020 Diastolic B/P 80-89 mm Hg completed Lisa Bello [place] - [facility] 01/17/2020 17:05:53 020 Systolic B/P 130-139 mm Hg completed Lisa Bello [place] - [facility] 01/17/2020 17:05:48 020 Systolic B/P less than 130 mm Hg completed Lisa Bello [place] - [facility] 01/02/2020 16:43:38 020 Diastolic B/P 80-89 mm Hg completed Lisa MILLER - [facility] 01/02/2020 16:43:43 019 Systolic B/P less than 130 mm Hg completed Bety Greene [place] - [facility] 11/19/2018 15:18:07 019 Diastolic B/P less than 80 mm Hg completed Bety Greene [place] - [facility] 11/19/2018 15:18:16 012 Date of Last Pap Smear completed Anabel MILLER - [facility] 03/15/2017 09:55:26 012 Salpingo-oophorectom y, Bilateral completed Anabel MILLER - [facility] 03/15/2017 09:50:37 006 Hysterectomy, Vaginal completed Anabel MILLER - [facility] 03/15/2017 09:49:59 Appendectomy completed Juliann MILLER - [facility] 09/16/2016 15:51:36 Diagnostic Laparoscopy completed Juliann MILLER - [facility] 09/16/2016 15:52:40 delivery completed Anabel MILLER - [facility] 03/15/2017 09:51:21 Carpal tunnel surgery completed Anabel MILLER - [facility] 03/15/2017 09:51:47 Cystourethroscopy completed Anabel MILLER - [facility] 03/15/2017 09:51:54 Endoscopy completed Anabel MILLER - [facility] 03/15/2017 09:52:08 Unlisted px foot/toes completed Anabel MILLER - [facility] 03/15/2017 09:52:21 Cholecystectomy, laparoscopic completed Anabel MILLER - [facility] 03/15/2017 09:52:29 Gastric Bypass completed Anabel MILLER - [facility] 03/15/2017 09:52:36 Hernia Repair completed Anabel MILLER - [facility] 03/15/2017 09:52:49 Unlisted procedure nose completed Anabel MILLER - [facility] 03/15/2017 09:52:54 Tubal Ligation completed Anabel MILLER - [facility] 03/15/2017 09:53:01 Imaging Results None recorded. Procedure Notes None recorded. Medical Equipment None Reported. Allergies Allergen ID Allergen Name Allergen Category Reaction Reaction Severity Criticality Documentation Date Start Date Code Code System Note Provider Name and Address Organization Details Recorded Time 64241 Non-stero idal anti-infl ammatory agent (product) medicatio n Not available Not available Not available 08/13/20162013 43859 005 SNOMED not suppo sed to take due to gastr ic bypas s Not Available [facility] 2 22:22:26 Medications Name Sig Start Date Stop [...] User: sen ruiz;Indica tion: Constipa tion - (5680 00) Not Available Not Available Not Available [...] Acute Bacteria l Sinusiti s - (4619 );Phar macyVeri fied: 09/13/20 13 12:34PM Not Available Not Available Not Available Levsin 0.125 mg tablet take 1 tablet (0.125 mg) by oral route every 4 hours as needed for 30 days 06/24 completed Levsin 0.125 mg oral tablet;R ecorded Status: Recorded on: 03/02/20 10 11:17AM; Disconti nued Status: Disconti nued on: 06/24/20 10 11:23AM; User: Aleah t. Completi on: 06/30/20 10;Indic ation: Irritabl e Bowel Syndrome - (5641 );Prin samara: 03/02/20 10 Not Available Not Available [...] 14 4:17PM;U ser: dominique henderson;Est. Completi on: 04/19/20 14 Not Available Not [...] Recorded on: 06/07/20 16 11:20AM; User: Dewey ellered: 06/07/20 16 Not Available Not Available Not [...] nued on: 06/11/20 15 10:13AM; User: [email or web address] Andrew ion: Anxiety - (05.3000 00) Not Available [...] Disconti nued on: 12/16/19 09 11:02AM; User: maura; Est. Completi on: 08/12/20 08;Indic ation: Bacteria l Vaginosi [...] 14 12:53PM; User: dominique henderson;Est. Completi on: 11/08/19 14;Pharm acyVerif ied: 10/09/20 13 2:18PM Not Available Not [...] 15;Indic ation: Urinary Tract Irritati on - (16.7889 00);Prin samara: 06/11/20 15 Not Available Not Available Not Available clindamyc [...] ation: Generali zed Anxiety Disorder - ();Phar Moisés fied: 04/05/20 13 3:01PM Not Available Not [...] 10:02AM; User: maryjane Andrew ion: Pain - (78.0811 00) Not Available Not Available Not Available hydroxyzi ne pamoate 50 mg capsule take 1 capsule by oral route 3 times a day as needed for 30 days 06/11 completed hydroxyz ine pamoate 50 mg oral capsule; Recorded Status: Recorded on: 05/07/20 15 3:50PM;D iscontin ued Status: Disconti nued on: 06/11/20 15 10:13AM; User: kevin; Est. Completi on: 06/06/20 15;Indic ation: Pruritus of Skin - (04.7159 00);Prin samara: 05/07/20 15 Not Available Not Available Not Available Vitamin B-12 500 mcg tablet take 1 tablet by oral route daily 06/24 completed Vitamin B-12 500 mcg oral tablet;R ecorded Status: Recorded on: 03/02/20 10 10:09AM; Disconti nued Status: Disconti nued on: 06/24/20 10 11:23AM; User: sen ruiz;Indica tion: Vitamin B12 Deficien cy - (03.2662 [...] Disconti nued on: 03/03/20 15 5:13PM;U ser: barcelon ar;Est. Completi on: 02/09/20 15;Indic ation: Corneal [...] 09/13/20 09;Indic ation: Influenz a - (4871 );Prin samara: 09/08/20 09 Not Available Not Available [...] User: dominique henderson;Est. Completi on: 11/01/20 13;Pharm Jessika ied: 10/25/20 13 2:31PM;P rinted: 10/25/20 13 [...] nued on: 03/04/20 16 11:11AM; User: remedios Juan CarlosEst. Completi on: 03/17/20 16;Print ed: 02/16/20 16 Not [...] on: 09/03/20 15;Indic ation: Panic Disorder - ();Prin samara: 08/04/20 15 Not Available Not Available [...] nued on: 05/08/20 13 10:02AM; User: feng dm;Indic ation: Diarrhea - (787.91) ;Pharmac yVerifie [...] Disconti nued on: 01/05/20 16 3:08PM;U ser: lora Not Available Not Available Not Available diltiazem [...] Status: Recorded on: 06/07/20 16 11:20AM; User: sandra;Est . Completi on: 07/07/20 16;Print ed: 06/07/20 [...] Disconti nued on: 08/04/20 15 1:44PM;U ser: kevin; Est. Completi on: 06/30/20 15;Print ed: 06/23/20 15 Not Available Not Available Not Available Robaxin-7 50 750 mg tablet 07/17 completed Robaxin- 750 750 mg oral tablet;R ecorded Status: Recorded on: 04/10/20 14 4:17PM;D iscontin ued Status: Disconti nued on: 07/17/20 14 1:44PM;U ser: agatha Not Available Not Available Not Available Guaifenes in AC 10 mg-100 mg/5 mL oral liquid take 10 millilit ers by oral route every 6 hours PRN 06/29 completed Guaifene sin AC 10-100 mg/5 mL oral liquid;R ecorded Status: Recorded on: 11/16/19 11 2:09PM;D iscontin ued Status: Disconti nued on: 06/29/20 11 6:54PM;U ser: david ;Indicat ion: Cough - (16.7862 00);Prin samara: 11/16/19 [...] 14 1:44PM;U ser: dominique henderson;Est. Completi on: 02/20/20 14;Pharm acyVconsuelo ied: 10/24/20 13 4:27PM Not Available Not Available Not Available omeprazol e 20 mg capsule,d elayed release take 1 capsule by oral route 2 times a day 08/17 completed omeprazo le 20 mg oral capsule, delayed release( /CHAPIS);R ecorded Status: Recorded on: 12/06/19 12 4:50PM;D iscontin ued Status: Disconti nued on: 08/17/20 12 3:03PM;U ser: david ;Printed : 12/06/19 12 Not Available [...] Status: Recorded on: 06/07/20 16 11:20AM; User: sandraSaroj Johnson on: 07/07/20 16;Print ed: 06/07/20 16 [...] on: 12/24/19 13;Indic ation: Otitis Externa - (3801 );Prin samara: 12/14/19 13 Not Available Not Available [...] Recurren t Herpes Simplex Infectio n - (0541 );Prin samara: 06/24/20 10 Not Available Not Available [...] Available Not Available Nasonex 50 mcg/actua tion [place] inhale 2 sprays in each nostril by intranas al route once daily for 30 days 03/02 completed Nasonex 50 mcg/actu ation nasal spray,no n-aeroso l;Record ed Status: Recorded on: 09/19/20 09 9:23AM;D iscontin ued Status: Disconti nued on: 03/02/20 10 10:09AM; User: lykinss; Est. Completi on: 01/18/20 10;Print ed: 09/19/20 [...] nued on: 12/04/19 16 2:39PM;U ser: remedios RangelEstHuong Completi on: 11/12/19 16;Print ed: 11/05/20 15 [...] Disconti nued on: 04/04/20 15 10:01AM; User: johnathan Johnson on: 06/01/20 15;Print ed: 03/03/20 15 Not [...] ation: Atrophic Vaginiti s associat ed with Reginaldo e - (56.7141 00);Prin samara: 08/17/20 12 Not Available Not Available Not Available aripipraz ole 5 mg tablet 03/17 completed Not Available Not Available Not Available topiramat e 50 mg tablet TAKE 2 TABLETS TWICE DAILY 02/09 completed Not Available Not Available Not Available 19 29 mg-1 mg chewable tablet 1 po bid 04/04 completed Replaced /Retired Drug 29-1 mg oral tablet,marlon steward; Recorded Status: Recorded on: 07/28/20 08 10:33PM; Disconti nued Status: Disconti nued on: 04/04/20 09 11:52AM; User: porters Not Available Not Available Not Available 19 (with docusate) 29 mg-1 mg tablet 2 po daily 03/02 completed Replaced /Retired Drug 29-1 mg oral tablet;R ecorded Status: Recorded on: 04/15/20 09 3:45PM;D iscontin ued Status: Disconti nued on: 03/02/20 10 10:09AM; User: filippo Est. Completi on: 10/12/20 09;Print ed: 04/15/20 09 Not Available Not Available Not Available nitrofura [...] Disconti nued on: 06/24/20 10 11:23AM; User: cait;Librado ndicatio n: - (-5) Not Available Not Available Not Available biotin daily 06/24 completed biotin;R ecorded Status: Recorded on: 06/10/20 09 2:17PM;D iscontin ued Status: Disconti nued on: 06/24/20 10 11:23AM; User: tomc;I ndicatio n: - (-5) Not Available Not Available Not Available Seroquel bid 02/01 completed Seroquel oral;Rec orded Status: Recorded on: 12/04/19 16 2:39PM;D iscontin ued Status: Disconti nued on: 02/02/20 16 3:18PM;U ser: [email or web address] Not Available Not Available Not Available amitripty line 05/27 completed amitript yline oral;Rec orded Status: Recorded on: 04/10/20 14 4:17PM;D iscontin ued Status: Disconti nued on: 05/27/20 14 4:48PM;U ser: agatha Not Available Not Available Not Available Keflex 1 tid 03/03 completed keflex 500mg;Re corded Status: Recorded on: 12/30/19 15 12:19PM; Disconti nued Status: Disconti nued on: 03/03/20 15 5:13PM;U ser: dominique henderson;Est. Completi on: 01/07/20 15;Indic ation: - (-5) [...] Disconti nued on: 03/26/20 14 1:02PM;U ser: [email or web address] henderson;Est. Completi on: 02/20/20 14;Indic ation: - (-5) [...] Disconti nued on: 08/17/20 12 3:03PM;U ser: lora Not Available Not Available Not Available peg [...] nued on: 09/04/20 15 2:34PM;U ser: tim triny;Est. Completi on: 10/19/20 15;Print ed: 09/04/20 15 [...] blood by Pulse oximetry Respiratory rate Systolic And Diastolic Provider Name and Address Organization Details Last Updated DateTime 3 167.64 cm 32.9 kg/m2 66363.8 4 g 64 /min 97 % 97 % 16 /min 118/64 mm[Hg] Juliann Geagley [place] - [facility] 3 15:39:14 Date Recorded Body height Body mass index (BMI) Body weight Oxygen saturation Oxygen saturation in Arterial blood by Pulse oximetry Respiratory rate Heart rate Systolic And Diastolic Provider Name and Address Organization Details Last Updated DateTime 3 167.64 cm 33.4 kg/m2 51590.6 2 g 98 % 98 % 16 /min 70 /min 120/76 mm[Hg] Juliann Geagley [place] - [facility] 3 09:45:11 Date Recorded Body height Body mass index (BMI) Body weight Heart rate Oxygen saturation Oxygen saturation in Arterial blood by Pulse oximetry Respiratory rate Systolic And Diastolic Provider Name and Address Organization Details Last Updated DateTime 3 167.64 cm 33.9 kg/m2 69212.4 g 88 /min 98 % 98 % 16 /min 134/74 mm[Hg] Juliann Cardona [facility] 3 13:55:42 Date Recorded Systolic And Diastolic Provider Name and Address Organization Details Last Updated DateTime 07/22/2022 128/78 mm[Hg] Nilson Mejía [facility] 07/22 09:27:32 Date Recorded Body height Body mass index (BMI) Body weight Body temperature Oxygen saturation Oxygen saturation in Arterial blood by Pulse oximetry Heart rate Respiratory rate Provider Name and Address Organization Details Last Updated DateTime 2 167.64 cm 32.9 kg/m2 50106.8 4 g 98.3 [degF] 98 % 98 % 68 /min 20 /min Liv Baker [facility] 2 08:43:38 Date Recorded Body height Body mass index (BMI) Body weight Body temperature Oxygen saturation Oxygen saturation in Arterial blood by Pulse oximetry Heart rate Respiratory rate Systolic And Diastolic Provider Name and Address Organization Details Last Updated DateTime 2 167.64 cm 32.8 kg/m2 17143.6 5 g 98.1 [degF] 98 % 98 % 89 /min 18 /min 104/68 mm[Hg] Liv Starr [facility] 2 09:30:30 Social History Question Answer Notes LastModified by Organizat ion Details LastModified Time Tobacco Smoking Status Never [facility]oker [facility] [place] 09/17/2016 16:44:16 Able To Swim? Yes Information [...] How Much Tobacco Do You Chew? None [email or web address] Information not available 11/18/2016 Are You Deaf Or Do You Have Serious Difficulty Hearing? No Information not available 01/12/2021 What Type Of Diet Are You Following? REGULAR Information not available 09/17/2016 Which Illicit Or Recreational Drugs Have You Used? No [email or web address] Information not available 11/18/2016 What Is The Highest Grade Or Level Of School You Have Completed Or The Highest Degree You Have Received? [id number] [email or web address] Information not available 05/25/2022 Swimming/diving No Informati on not available 09/17/2016 Have There Been Any Changes To Your Family Or Social Situation? No [email or web address] Information no t available 05/25/2022 Hard Of Hearing Or Deaf In One Or Both Ears? No Information not available 09/17/2016 Legally Blind In One Or Both Eyes? No Information no t available 09/17/2016 Live Alone Or With Others? With Others Information not available 09/17/2016 Do You Have A Medical Power Of [place]? No [email or web address] Information not available 05/25/2022 What Was The Date Of Your Most Recent Tobacco Screening? 08/18/2022 [email or web address] Information not available 08/18/2022 How Many Children Do You Have? 3 Information not available 09/17/2016 Performs Monthly Self-breast Exam? No [email or web address] Information no t available 03/31/2017 Do You Use Protection During Sex? No [email or web address] Information not available 11/18/2016 What Is Your Relationship Status? Information not available 11/18/2016 Seat Belts Used Routinely Yes Information not available 09/17/2016 Are You Sexually Active? No Information not available 01/12/2021 Smoke Alarm In Home Yes Information not available 09/17/2016 Do You Have Smoke And Carbon Monoxide Detectors In Your Home? Yes Information not available 05/25/2022 Are You Passively Exposed To Smoke? No [email or web address] Information no t available 11/18/2016 General Stress Level High [email or web address] Information not available 11/18/2016 Do You Use Sunscreen Routinely? No Information not available 09/17/2016 Has Tobacco Cessation Counseling Been Provided? No [email or web address] Information not available 05/25/2022 Do You Have Difficulty Walking Or Climbing Stairs? Yes Information not available 01/12/2021 Sex: Female Functional Status Question Answer Note LastModified by Organizat ion Details LastModified Time Do you use any illicit or recreational drugs? No Information not available 05/25/2022 Do you or have you ever used any other forms of tobacco or nicotine? No [email or web address] Information not available 05/25/2022 What is your level of alcohol consumption? None Information not available 09/17/2016 Are you currently employed? Yes [email or web address] Information not available 08/18/2022 Do you have transportation difficulties? No Information not available 05/25/2022 Urinary incontinence assessment performed? Yes Information not available 06/22/2018 Are you able to walk? [email or web address] Information not available 01/12/2021 Do you have difficulty doing errands alone? No Information not available 01/12/2021 Are you able to care for yourself? Yes Information not available 09/17/2016 What is your occupation? [employer] [email or web address] Information not available 08/18/2022 Do you have difficulty dressing or bathing? No Information not available 01/12/2021 What is your exercise level? None Information not available 09/17/2016 Mental Status Question Answer Note LastModified by Organizat ion Details LastModified Time Do you feel stressed (tense, restless, nervous, or anxious, or unable to sleep at night)? [id number] Information not available 05/25/2022 Do you have difficulty concentrating, remembering or making decisions? No Information no t available 01/12/2021 Family History [...] Than N Lung Disease N Hypothyroidism N Developmental or Behavioral Disorders N Defects or Inherited Disease N Breast Problem N Difficulty Swallowing N Ovarian Cyst N Anesthesia Complications N Testosterone Deficiency N Meniere's disease N Head Injury/Concussion N Interstitial Cystitis N Congenital Anomalies N Hypoglycemia N Blood clot N Vitamin D Deficiency Y Cellulitis N Endometriosis N Fracture N Bladder or Kidney Problems N Liver Disease N Schizophrenia N Panic [...] Congestive Heart Failure (CHF) N Syncope N Insomnia Y Hyperlipidemia N Eczema N Diverticulitis N Dementia N Attention Deficient Disorder N Abuse/Domestic Violence N Ulcerative colitis N Cerebrovascular Disease N Depression N [place] N Sleep Apnea N Aneurysm N Heart Disease N Bronchitis N Suicidal Ideation N Pre-Eclampsia N Hypertension [...] e and Address Organization Details Recorded Time Hep A, adult 1 completed Magdalena Machado [place], [place] - [facility] 08/31/2021 12:35:37 Hep B, adult 1 completed Liv Starr [facility], [place] - [facility] 10/22/2021 13:14:17 Influenza, split virus, quadrivalent, preservative 8 completed Not Available [facility] 11/24/2019 03:54:57 Past Encounters Encounter ID Performer Location Encounter Start Date Encounter Closed Date Diagnosis/Indication Diagnosis SNOMED-CT Code Diagnosis ICD10 Code Diagnosis Note [id number] [facility] [address] [place] [address] 08/05/2008 00:00:00 [id number] [facility] [address] [place] [address] 5 05/02/2008 00:00:00 [id number] [facility] [address] [place] [address] 05/03/2008 00:00:00 [id number] [facility] [address] [place] [address] 06/04/2008 00:00:00 [id number] [facility] [address] [place] [address] 07/16/2008 00:00:00 [id number] [facility] [address] [place] [address] 09/12/2008 00:00:00 [id number] [facility] [address] [place] [id number] 12/16/2008 00:00:00 [id number] [facility] [address] [place] [address] [address] 5 01/10/2009 00:00:00 [id number] [facility] [address] [place] [address] [address] 5 01/10/2009 00:00:00 [id number] [facility] [address] [place] [id number] 5 01/14/2009 00:00:00 [id number] [facility] [address] [place] [id number] 5 01/17/2009 00:00:00 [id number] [facility] [address] [place] [address] [address] 5 02/20/2009 00:00:00 [id number] [facility] [address] [place] [id number] 5 04/02/2009 00:00:00 [id number] [facility] [address] [place] [id number] 5 04/04/2009 00:00:00 [id number] [facility] [address] [place] [address] 5 04/16/2009 00:00:00 [id number] [facility] [address] [place] [id number] 5 05/21/2009 00:00:00 [id number] [facility] [address] [place] [address] 5 06/10/2009 00:00:00 [id number] [facility] [address] [place] [id number] 5 06/10/2009 00:00:00 [id number] [facility] [address] [address] 5 06/26/2009 00:00:00 [id number] [facility] [address] [place] [address] [address] [address] 5 08/01/2009 00:00:00 [id number] [facility] [address] [place] [address] [address] 5 08/08/2009 00:00:00 [id number] [facility] [address] [place] [address] [address] 5 09/05/2009 00:00:00 [id number] [facility] [address] [place] [address] 5 09/08/2009 00:00:00 [id number] [facility] [address] [place] [id number] 5 03/02/2010 00:00:00 [id number] [facility] [address] [place] [id number] 5 06/12/2010 00:00:00 [id number] [facility] [address] [place] [address] [address] 5 06/24/2010 00:00:00 [id number] [facility] [address] [place] [id number] 5 04/09/2016 00:00:00 [id number] [facility] [address] [place] [address] 5 04/30/2016 00:00:00 [id number] [facility] [address] [place] [id number] 5 12/07/2012 00:00:00 [id number] [facility] [address] [place] [id number] 5 05/12/2016 00:00:00 [id number] [facility] [address] [place] [id number] 5 12/14/2012 00:00:00 [id number] [facility] [address] [address] 5 06/07/2016 00:00:00 [id number] [facility] [address] [place] [id number] 5 11/16/2010 00:00:00 [id number] [facility] [address] [address] 5 06/29/2011 00:00:00 [id number] [facility] [address] [place] [address] 5 09/17/2011 00:00:00 [id number] [facility] [address] [place] [id number] 5 09/28/2011 00:00:00 [id number] [facility] [address] [place] [id number] 5 10/04/2011 00:00:00 [id number] [facility] [address] [place] [address] 5 11/15/2011 00:00:00 [id number] [facility] [address] [place] [address] [address] [address] 5 12/06/2011 00:00:00 [id number] [facility] [address] [place] [address] 5 12/14/2011 00:00:00 [id number] [facility] [address] [place] [address] 5 03/02/2012 00:00:00 [id number] [facility] [address] [place] [id number] 5 01/05/2016 00:00:00 [id number] [facility] [address] [place] [address] 5 08/17/2012 00:00:00 [id number] [facility] [address] [place] [address] 5 02/16/2016 00:00:00 [id number] [facility] [address] [place], [place] [address] 09/01/2012 00:00:00 [id number] [facility] [address] [place] [address] 5 11/09/2012 00:00:00 [id number] [facility] [address] [place] [address] [address] 5 11/29/2012 00:00:00 [id number] [facility] [address] [place] [address] 5 03/04/2016 00:00:00 [id number] [facility] [address] [address] 5 12/06/2012 00:00:00 [id number] [facility] [address] [place] [id number] 5 03/23/2016 00:00:00 [id number] [facility] [address] [place] [address] 5 01/05/2013 00:00:00 [id number] [facility] [address] [address] 5 12/07/2012 00:00:00 [id number] [facility] [address] [place] [address] 5 04/09/2016 00:00:00 [id number] [facility] [address] [place] [id number] 5 01/08/2013 00:00:00 [id number] [facility] [address] [place] [id number] 5 03/05/2013 00:00:00 [id number] [facility] [address] [place] [address] 5 04/05/2013 00:00:00 [id number] [facility] [address] [place] [id number] 5 07/26/2013 00:00:00 [id number] [facility] [address] [place] [address] 5 08/29/2013 00:00:00 [id number] [facility] [address] [place] [address] 5 04/10/2013 00:00:00 [id number] [facility] [address] [place] [address] [address] [address] 5 09/05/2013 00:00:00 [id number] [facility] [address] [address] 5 09/11/2013 00:00:00 [id number] [facility] [address] [address] 5 05/03/2013 00:00:00 [id number] [facility] [address] [place] [id number] 5 09/12/2013 00:00:00 [id number] [facility] [address] [place] [id number] 5 09/20/2013 00:00:00 [id number] [facility] [address] [place] [address] [address] 5 05/08/2013 00:00:00 [id number] [facility] [address] [place] [address] 5 09/25/2013 00:00:00 [id number] [facility] [address] [place] [id number] 5 10/22/2013 00:00:00 [id number] [facility] [address] [address] 5 05/25/2013 00:00:00 [id number] [facility] [address] [place] [address] 5 11/19/2013 00:00:00 [id number] [facility] [address] [place] [address] 5 12/18/2013 00:00:00 [id number] [facility] [address] [place] [address] 5 01/23/2014 00:00:00 [id number] [facility] [address] [address] 5 07/02/2013 00:00:00 [id number] [facility] [address] [address] [address] 5 03/26/2014 00:00:00 [id number] [facility] [address] [place] [address] 5 04/08/2014 00:00:00 [id number] [facility] [address] [address] 5 07/26/2013 00:00:00 [id number] [facility] [address] [place] [address] 5 04/09/2014 00:00:00 [id number] [facility] [address] [place] [address] [address] [address] 5 06/23/2015 00:00:00 [id number] [facility] [address] [place] [address] [address] [address] 5 08/04/2015 00:00:00 [id number] [facility] [address] [place] [id number] 5 09/04/2015 00:00:00 [id number] [facility] [address] [address] 5 10/10/2015 00:00:00 [id number] [facility] [address] [place] [address] 5 11/05/2015 00:00:00 [id number] [facility] [address] [place] [id number] 5 12/04/2015 00:00:00 [id number] [facility] [address] [place] [id number] 5 12/30/2014 00:00:00 [id number] [facility] [address] [place] [id number] 5 07/17/2014 00:00:00 [id number] [facility] [address] [place] [address] 5 01/08/2015 00:00:00 [id number] [facility] [address] [place] [address] 5 07/26/2014 00:00:00 [id number] [facility] [address] [place], [place] [address] 5 08/01/2014 00:00:00 [id number] [facility] [address] [place] [address] 5 11/12/2014 00:00:00 [id number] [facility] [address] [place] [address] 5 01/27/2015 00:00:00 [id number] [facility] [address] [place] [address] 5 03/03/2015 00:00:00 [id number] [facility] [address] [place] [address] 5 11/12/2014 00:00:00 [id number] [facility] [address] [place] [address] 5 12/30/2014 00:00:00 [id number] [facility] [address] [place] [address] 5 03/12/2015 00:00:00 [id number] [facility] [address] [place] [address] 5 04/04/2015 00:00:00 [id number] [facility] [address] [place] [address] 5 05/07/2015 00:00:00 [id number] [facility] [address] [place] [address] 5 06/11/2015 00:00:00 [id number] [facility] [address] [place] [address] 5 06/17/2015 00:00:00 [id number] [facility] [address] [place] [address] 5 04/10/2014 00:00:00 [id number] [facility] [address] [place] [address] 5 05/08/2014 00:00:00 [id number] [facility] [address] [place] [address] 5 07/17/2014 00:00:00 [id number] Bety Greene MD [facility] [address] [address] 09/17/2016 16:25:36 09/17/2016 17:19:43 Irritable bowel syndrome 64557285 K58.9 Gastroesop hageal reflux disease 582490498 K21.9 Long-term drug therapy 398535278 Z79.899 Vitamin D deficiency 347 69513 E55.9 Depressive disorder 3548 9007 F33.8 Pain of mu ltiple joints 68544533 M25.50 Insomnia 099780169 G47.0 0 Migraine 96099780 G43.90 9 Seasonal allergy 1956529 04 J30.2 Constipation 61655053 K5 9.00 [id number] Bety Greene MD [facility] [address] [address] 11/18/2016 16:17:46 11/18/2016 18:08:46 Insomnia 600379234 G47.00 Migraine 99696904 G43.90 9 Renewal of prescription 630307448 Z76.0 Vitamin D deficiency 347 24626 E55.9 Depressive disorder 3548 9007 F33.8 Pain of mu ltiple joints 15107103 M25.50 Seasonal allergy 9347198 04 J30.2 Constipation 46312783 K5 9.00 Fibromyalgia 164488263 M 79.7 [id number] Bety Greene MD [facility] [address] [place] [address] 12/22/2016 11:01:35 12/22/2016 12:11:18 Migraine 24246298 G43.909 Pain of mu ltiple joints 87655678 M25.50 Contusion of rib 9514079 06 S20.20XA Loss of hair 187863820 L 65.9 Lesion of skin of face 1437447265 06 L98.9 [id number] Bety Greene MD [facility] [address] [place] [address] 7 01/19/2017 12:03:31 01/19/2017 14:25:41 Pain of multiple joints 07628929 M25.50 Migraine 68248863 G43.90 9 Seasonal allergy 8138533 04 J30.2 Vitamin D deficiency 347 74554 E55.9 Constipation 39539181 K5 9.00 Renewal of prescription 072868204 Z76.0 Pain in both feet 259495 4388 0780474 M79.671 M79.672 Bilateral trochanteric bursitis 1334410353 0886453 M70.61 M70.62 Fibromyalgia 881061086 M 79.7 Steatotic liver disease 184292745 K76.0 [id number] Bety Greene MD [facility] [address] [place] [address] 7 02/23/2017 13:21:12 02/23/2017 14:28:08 Migraine 71194573 G43.909 Seasonal allergy 8271259 04 J30.2 Body mass index 25-29 - overweight 580089210 Z68.29 Screening mammography 24 862439 Z12.31 Screening for malignant neoplasm of cervix 887175945 Z12.4 [id number] Randi Palafox APRN [facility] [address] [place] [address] 7 03/16/2017 13:54:08 03/16/2017 14:29:46 Acute urinary tract infection 950276214 N39.0 [id number] Bety Greene MD [facility] [address] [place] [address] 7 03/18/2017 09:45:11 03/18/2017 10:17:38 Migraine 05146606 G43.909 Seasonal allergy 8487618 04 J30.2 Renewal of prescription 569996368 Z76.0 Pain of mu ltiple joints 89081773 M25.50 Constipation 15936315 K5 9.00 Vitamin D deficiency 347 16850 E55.9 Malaise and fatigue 2717 12381 R53.83 Pediculosis capitis 8100 0006 B85.0 exposure to External hemorrhoids 239 78291 K64.4 [id number] Randi Palafox APRN [facility] [place] [address] [place] [address] [place] [address] 03/31/2017 13:35:38 03/31/2017 14:31:16 Routine gynecologic examination done 3739780379 9101 Z01.419 Depression screening 171 698106 Z13.89 PHQ-9 completed today. positive Sees [facility] F[facility] [place] Diet education 78747394 Z71.3 Counseling 820947697 Z71 .9 Exercise counselsanjay spaulding Patient encouraged to exercise 30 minutes 5 days a week. Examinatio n of blood pressure 233538541 Z01.30 Body mass index 25-29 - overweight 581921246 Z68.27 History of total hysterectomy with bilateral salpingo-oophorectomy 300426297 Z90.79 Screening mammography 24 590352 Z12.31 Menopausal syndrome 1237 78389 N95.9 Rectal pain 90274772 K62 .89 [id number] Bety Greene MD [facility] [address] [address] 04/29/2017 14:27:27 04/29/2017 15:53:21 Renewal of prescription 735515325 Z76.0 Migraine 65443168 G43.90 9 Pain of mu ltiple joints 77829888 M25.50 Seasonal allergy 4895478 04 J30.2 Constipation 03398795 K5 9.00 [id number] Bety Greene MD [facility] [address] [place] [address] 05/11/2017 09:55:41 05/11/2017 11:00:14 Body mass index 25-29 - overweight 492371075 Z68.29 [id number] Bety Greene MD [facility] [address] [place] [address] [place] [address] 05/26/2017 16:25:40 05/26/2017 17:43:19 Renewal of prescription 639744324 Z76.0 Menopausal syndrome 1237 95980 N95.9 Seasonal allergy 1099543 04 J30.2 Pain of mu ltiple joints 00378439 M25.50 Excessive somnolence 372 659637 R40.0 [id number] Bety Greene MD [facility] [address] [place] [address] [place] [address] 07/07/2017 17:02:49 07/07/2017 18:14:45 Vitamin D deficiency 22190527 E55.9 Pain of mu ltiple joints 55377828 M25.50 Migraine 34948279 G43.90 9 Depressive disorder 3548 9007 F33.8 [id number] Bety Greene MD [facility] [address] [place] [address] [place] [address] 08/08/2017 16:05:38 08/08/2017 16:45:19 Body mass index 25-29 - overweight 853112443 Z68.26 Renewal of prescription 637805387 Z76.0 Vitamin D deficiency 347 17534 E55.9 Menopausal syndrome 1237 65184 N95.9 Depressive disorder 3548 9007 F33.8 Seasonal allergy 1909040 04 J30.2 Pain of mu ltiple joints 70454828 M25.50 Constipation 39554717 K5 9.00 Migraine 92127703 G43.90 9 [id number] Bety Greene MD [facility] [address] [place] [address] [place] [address] 09/05/2017 08:11:32 09/05/2017 10:14:34 Body mass index 25-29 - overweight 447358393 Z68.25 Pain of mu ltiple joints 19522817 M25.50 Ear pressu re sensation 528615154 H93.8X9 [id number] Bety Greene MD [facility] [address] [place] [address] [place] [address] 10/06/2017 15:01:47 10/06/2017 16:16:09 Pain of multiple joints 79419522 M25.50 Migraine 48693072 G43.90 9 Body mass index 25-29 - overweight 219270475 Z68.25 Menopausal syndrome 1237 89292 N95.9 Gynecologi c examination 64533016 Z01.419 Headache 75869457 R51 Pain of le ft hip joint 3933011039 36587 M25.149 [id number] Bety Greene MD [facility] [address] [place] [address] [place] [address] 11/03/2017 08:58:37 11/03/2017 09:28:34 Body mass index 25-29 - overweight 679948072 Z68.25 Renewal of prescription 713188957 Z76.0 Migraine 98889086 G43.90 9 Vitamin D deficiency 347 13760 E55.9 Pain of mu ltiple joints 65413597 M25.50 Menopausal syndrome 1237 17497 N95.9 Depressive disorder 3548 9007 F33.8 Ear pressu re sensation 179527439 H93.8X9 Constipation 05892924 K5 9.00 [id number] Bety Greene MD [facility] [address] [place] [address] 7 12/15/2017 10:24:57 12/15/2017 11:24:05 Pain of multiple joints 02991750 M25.50 Long-term drug therapy 662129486 Z79.899 Insomnia 607980061 G47.0 0 Pain of le ft temporomandibular joint 5844764884 8229766 M26.622 Depressive disorder 3548 9007 F33.8 [id number] Bety Greene MD [facility] [address] [place] [address] 7 01/09/2018 09:27:39 01/09/2018 11:24:08 Administration of influenza vaccine 32677429 Z23 Body mass index 25-29 - overweight 980444319 Z68.26 Chest pain 82787189 R07. 9 [id number] Bety Greene MD [facility] [address] [place] [address] [place] [address] 7 03/22/2018 14:12:36 03/22/2018 15:15:46 Edema 410630129 R60.9 Ear pressu re sensation 286416382 H93.8X9 Depressive disorder 3548 9007 F33.8 Migraine 91563325 G43.90 9 Sleep shobha raji disturbance 97355259 G47.9 Abdominal pain 01364398 R10.9 [id number] Bety Greene MD [facility] [address] [place] [address] [place] [address] 7 04/06/2018 15:04:57 04/06/2018 17:11:49 Onychomycosis of toenails 087528401 B35.1 Skin lesion 22713414 L98 .9 ? plantar wart [id number] Bety Greene MD [facility] [address] [place] [address] 7 06/22/2018 14:57:35 06/22/2018 16:35:19 Fibromyalgia 790584580 M79.7 Long-term drug therapy 318295170 Z79.899 Body mass index 25-29 - overweight 195481184 Z68.26 Pain of mu ltiple joints 05750327 M25.50 Insomnia 258605290 G47.0 0 Dyspareunia 93976359 N94 .10 Pain of hip region 62930 002 M25.661 [id number] Ceci Mart [facility] [address] [place] [address] 7 10/09/2018 17:55:06 10/09/2018 18:16:11 Herpes labialis 9730048 B00.1 Strain of right trapezius muscle 9489433003 1368666 S29.012A [id number] Irene Hamlin [facility] [address] [place] [address] 7 11/03/2018 14:27:51 11/03/2018 15:23:07 Dental caries 76482979 K02.9 Toothache 96434857 K08.8 9 [id number] Bety Greene MD [facility] [address] [place] [address] 7 11/16/2018 15:28:16 11/16/2018 16:51:02 Dental caries 88707699 K02.9 Menopausal syndrome 1237 34235 N95.9 Ear pressu re sensation 762694117 H93.8X9 Vitamin D deficiency 347 84991 E55.9 Edema of l ower extremity 792951966 R60.0 Pain of mu ltiple joints 45747014 M25.50 Herpes labialis 1435548 B00.1 Depressive disorder 3548 9007 F33.8 [id number] Ceci Mart [facility] [address] [place] [address] 12/25/2018 08:51:08 12/25/2018 09:24:50 Acute pansinusitis 2706573 J01.40 Cough 05161416 R05 [id number] Marcus Friedman MD [facility] [address] [place] [address] [place] [address] 04/03/2019 08:05:01 04/03/2019 09:49:14 Cough 23338914 R05 Acute bronchitis 8548622 2 J20.9 Candidiasis of vagina 72 633594 B37.3 Blepharitis 71300323 H01 .9 [id number] Marcus Friedman MD [facility] [address] [place] [address] [place] [address] 11/27/2019 08:21:49 11/27/2019 09:11:49 Bursitis of left hip 311089449 M70.72 [id number] Bety Greene MD [facility] [address] [place] [address] [place] [address] 01/02/2020 16:21:38 01/02/2020 17:47:09 Herpes labialis 2027605 B00.1 Bursitis of left hip 773 018627 M70.72 Menopausal syndrome 1237 21330 N95.9 Allergic rhinitis 054512 04 J30.9 Ear pressu re sensation 891538030 H93.8X9 Vitamin D deficiency 347 41610 E55.9 Body mass index 30+ - obesity 123723685 Z68.31 Screening mammography 24 924124 Z12.31 Screening for malignant neoplasm of colon 676697897 Z12.11 Depressive disorder 3548 9007 F33.8 Neck pain 34631934 M54.2 Generalize d anxiety disorder 10732494 F41.1 Insomnia 941562170 G47.0 0 Chronic ne ck pain for greater than 3 months 3667935228 35038 M54.2 Cervical d isc disorder 019653208 M50.90 Chronic low back pain 27 6249825 M54.5 Degenerati on of lumbar intervertebral disc 35524296 M51.36 Pain of to e of left foot 0992738344 77608 M79.785 [id number] Bety Greene MD [facility] [address] [place] [address] [place] [address] 01/17/2020 16:49:40 01/17/2020 17:38:34 Facial swelling 670133023 R22.0 Seasonal allergy 5010611 04 J30.2 [id number] Bety Greene MD [facility] [address] [place] [address] [place] [address] 01/21/2020 14:16:12 01/21/2020 15:28:08 Left flank pain 715408601 R10.9 Increased frequency of urination 306768822 R35.0 Acute pyelonephritis 366 12418 N10 [id number] Bety Greene MD [facility] [address] [place] [address] [place] [address] 03/14/2020 16:22:16 03/14/2020 16:57:30 Pain in bilateral legs [id number] 8316924 M79.604 M79.605 History of bariatric surgical procedure 516347408 Z98.84 Family his tory of leukemia 266202313 Z80.6 Depressive disorder 3548 9007 F33.8 Fibromyalgia 000880248 M 79.7 [id number] Bety Greene MD [facility] [address] [address] 03/19/2020 11:12:03 03/19/2020 12:40:26 Vitamin D deficiency 26853508 E55.9 Liver enzy mes level above reference range 645303860 R74.8 Iron deficiency 19605680 E61.1 Bone pain 21091877 M89.8 X9 Family his tory of leukemia 989819348 Z80.6 History of bariatric surgical procedure 684516163 Z98.84 Herpes labialis 1686198 B00.1 [id number] Jessie Leon APRN [place] [address] [place] [address] 04/01/2020 15:21:20 04/01/2020 16:44:28 Anemia 156599850 D64.9 Cobalamin deficiency 190 082964 E53.8 Pain in right knee 40158 21832 51105 M25.561 Pain of le ft ankle joint 9187877894 8715949 M25.509 [id number] Bety Greene MD [facility] [address] [place] [address] [place] [address] 06/09/2020 11:09:46 06/09/2020 12:17:23 Pain in right knee 3996754720 75486 M25.561 Generalize d anxiety disorder 29162080 F41.1 [id number] Bety Greene MD [facility] [address] [place] [address] [place] [address] 07/07/2020 13:51:23 07/07/2020 15:16:06 Fibromyalgia 137290935 M79.7 Pain in right knee 50573 76997 14906 M25.237 [id number] Sylvia Dickson [address] [place] [address] 08/11/2020 15:42:20 08/12/2020 11:38:56 Headache 80908051 R51.9 pt states she is not allergic to NSAIDS but is not suppose to take them because of her gastric bypass she was on a coted one for a while Sinusitis 84823296 J32.9 [id number] Sylvia Yessi [address] [place] [address] 08/14/2020 15:24:07 08/14/2020 16:58:22 Fatigue 21314093 R53.83 Anemia 338155574 D64.9 Onychomyco sis of toenails 693218148 B35.1 try Vicks salve all around tissues at least bid Body mass index 30+ - obesity 543692778 Z68.31 [id number] Marcus Friedman MD [facility] [address] [place] [address] [place] [address] 10/28/2020 14:15:53 10/28/2020 15:02:58 Exposure to SARS-CoV-2 274491679 Z20.828 Restless legs 70256294 G 25.81 [id number] Cheyenne Mccollum APRN [place] [address] [place] [address] 11/13/2020 15:50:25 11/13/2020 16:43:08 Exposure to SARS-CoV-2 518991417 Z20.822 Pain in throat 648225331 R07.0 Acute pharyngitis 456261 003 J02.9 [id number] Cheyenne Mccollum APRN [place] [address] [address] 11/18/2020 16:01:32 11/18/2020 16:52:40 Exposure to SARS-CoV-2 288065661 Z20.822 Acute uppe r respiratory infection 77004427 J06.9 Continue amoxicilli n until prescripti on is complete. Take mucinex dm Q12 hours and drink plenty of water. [id number] Katherine Burch PA-C [facility] [address] [place] [address] [place] [address] 12/30/2020 08:14:27 12/30/2020 10:10:41 Viral screening 469948992 Z11.52 Herpes labialis 4889607 B00.1 [id number] Katherine Burch PA-C [facility] [address] [place] [address] [place] [address] 01/06/2021 09:18:57 01/06/2021 10:47:09 Myalgia/myositis - multiple 237575021 M79.10 Viral screening 59218492 4 Z11.52 Headache 77397488 R51.9 Pain of mu ltiple joints 31207300 M25.50 [id number] Bety Greene MD [facility] [address] [place] [address] [place] [address] 01/12/2021 09:00:49 01/12/2021 10:30:09 Pain in right knee 2335422374 68966 M25.561 Fibromyalgia 269324427 M 79.7 Wheezing 65157949 R06.2 Herpes labialis 4634032 B00.1 Trochanter ic bursitis of left hip 3392227328 50925 M70.62 Neck pain 71647082 M54.2 Headache 94695842 R51.9 Pain of le ft hip joint 3276649393 73179 M25.605 [id number] Bety Greene MD [facility] [address] [place] [address] [place] [address] 01/26/2021 14:15:01 01/26/2021 15:15:55 HIV screening 195762061 Z11.4 Easy bruising 211821470 R58 Headache 82638758 R51.9 History of bariatric surgical procedure 757459285 Z98.84 Liver enzy mes level above reference range 223800644 R74.8 [id number] Bety Greene MD [facility] [address] [place] [address] [place] [address] 03/27/2021 08:39:11 03/27/2021 09:54:48 Pain of multiple joints 10358422 M25.50 Wheezing 76775731 R06.2 Depressive disorder 3548 9007 F33.8 Bilateral cramp of muscle of lower limbs 5759244085 2702226 R25.2 Easy bruising 164149816 R58 Cervical spine sprain 36 77085481 9108 S13.4XXD Neck pain 71808797 M54.2 Gastroesop hageal reflux disease 569762896 K21.9 [id number] Marcus Friedman MD [facility] [address] [place] [address] [place] [address] 06/29/2021 13:38:52 06/29/2021 16:03:35 Exposure to SARS-CoV-2 013110793 Z20.089 [id number] Savanah Garcia APRN [address] [place] [address] 07/28/2021 09:57:30 07/28/2021 11:39:29 Viral screening 515133603 Z11.52 Pleuritic pain 7609116 R 07.81 [id number] Nilson Mejía MD [address] [place] [address] 07/30/2021 16:30:48 07/30/2021 18:11:10 Pain of hip region 96717915 M25.559 Get XRS. Get labs. Take acetaminop hen as prescribed . See us back or go to an Er right away should get worse or develop any new symptoms or complaints . Follow up with us in a week. Low back pain 416428267 M54.5 Get XRS. Take acetaminop hen and [...] mae. Body mass index 30+ - obesity 169831408 Z68.32 Take a low fat diet, exercise and loose weight. Follow up in 3 months. Venereal d isease screening 285482326 Z11.3 Thoracic back pain 57776 8004 M54.6 See above No-1. Sent to ER. Also get XRS - Chest pain 92179681 R07. 9 I recommende d that she [...] rhythm w/o acute ischemic changes. Abdominal pain 93698893 R10.9 No known allergies to contrast or [...] scan Screening for malignant neoplasm of colon 170276849 Z12.11 Options for colon rectal cancer screening were reviewed and discussed with patient. Patient would like to get COLONOSCOP Y. Referred to GI. Screening for malignant neoplasm of breast 229075670 Z12.39 Get mammogram. Follow up with me after getting mammogram Screening for malignant neoplasm of cervix 502494560 Z12.4 Hx of Hysterecto my per patient. See Customer Acquisition Specialist for a thorough pelvic examinatio n Immunization advised 310 714541 Z71.9 Tells me she had Tdap in 2019. She has declined to get COVID, Shingles and Influenza vaccines despite counsellin g and education [id number] Nilson Mejía MD [address] [place] [address] 08/31/2021 11:18:21 08/31/2021 13:58:32 Depressive disorder 42853855 F32.A Take PAXIL as prescribed . Establish [...] up with us in 2 weeks. Spasm 38803559 R25.2 Intermitte nt. Get labs. Take Tizanidine as prescribed . See us back or go to ER right away should get worse or develop any new symptoms or complaints . Follow up with me in a week Vitamin D deficiency 347 78535 E55.9 Take Vitamin D3 as prescribed . Get Vitamin D 25 (OH) level in 3 months and see us for same. Iron deficiency 17192429 E61.1 Take ferrous sulfate as prescribed . I discussed in depth that she should see GI for colon rectal cancer screening as soon as possible. Get ferritin and CBC in 2 months and see us for same. Immunization advised 310 602932 Z71.9 Tells me she had Tdap in [...] store or pharmacy. Anti-nucle ar factor detected 206214108 R76.8 OLIVA + with speckled pattern 1:40. She has been referred to Rheumatolo gist and asked to keep appt with them once scheduled. Liver enzy mes outside reference range 815903966 R94.5 Referred to GI. See us back or go to ER right away should get worse or develop any new symptoms or complaints Headache 18121523 R51.9 No known allergies to contrast or dye. Get MRI of brain. Referred to neurologis t. I recommende d that she should seek an immediate medical attention i.e. go to hospital emergency department (ER) right away should get headache again or any other complaints or symptoms. Snoring symptoms 1672109 00 R06.83 Referred to neurologis t for a further evaluation and management . I warned and cautioned about not to engage in activities that require mental alertness like driving, operating machinery etc. while she's feeling fatigued, tired, sleepy or drowsy. [id number] Nilson Mejía MD [address] [place] [address] 10/22/2021 11:49:06 10/22/2021 13:09:44 Chest pain 39066289 R07.9 Intermitte nt chest pain and dyspnea [...] now. Follow up with us and cardiologi st after hospital discharge. Iron deficiency 76269193 E61.1 Take ferrous sulfate as prescribed . I discussed in depth that she should see GI for colon rectal cancer screening as soon as possible. Get labs Vitamin D deficiency 347 45968 E55.9 Take Vitamin D3 as prescribed . Get Vitamin D 25 (OH) level in 3 months and see us for same. Body mass index 30+ - obesity 921473731 Z68.32 Take a low fat diet, exercise and loose weight. Follow up in 3 months. Screening for malignant neoplasm of breast 225485227 Z12.39 Get mammogram. Would like to see a female provider for breast exam and I asked her to set up an appointmen t for same. Screening for malignant neoplasm of colon 449564141 Z12.11 Options for colon rectal cancer screening were reviewed and discussed with patient. Patient would like to get COLONOSCOP Y. Referred to GI. Depressive disorder 7574 9006 F32.A Controlled . Take PAXIL as prescribed [...] us in 3 months Immunization advised 310 474546 Z71.9 Tells me she had Tdap in 2019. She has declined to get COVID, Shingles and Influenza vaccines despite counsellin g and education. Get Hep B vaccine at 0, 1 and 6 months. See us back in a month for second dose of Hepatitis B. Neck pain 79026238 M54.2 Get XRS of cervical spine. Take acetaminop hen and cyclobenza mae as prescribed . Will refer for PT. I also asked her to see us back or go to Er right away should get worse or develop any new symptoms or complaints . Follow up with me in a couple of weeks. Chronic low back pain 27 3301732 M54.50 XRS of lumbosacra l spine on [...] weeks or so. Pain of hip region 91504 002 M25.559 XRS of hips were normal on 08.17.2021 . Take acetaminop hen as prescribed . Will refer to pain specialist and Orthopedic s. See us back or go to (ER right away should get worse or develop any new symptoms or complaints . [id number] Marcus Friedman MD [facility] [address] [place] [address] 01/27/2022 08:11:54 01/27/2022 10:08:39 Vitamin D deficiency 60993194 E55.9 Anxiety 59435505 F41.9 Anemia 015298287 D64.9 Spasm 96650910 R25.2 Pain of mu ltiple joints 05395738 M25.50 [id number] Sofie Crowe APRN [facility] [address] [place] [address] 03/02/2022 09:50:14 03/02/2022 10:26:35 Pain in left lower limb 267179507 M79.605 Will order U/S to evaluate the vascular system to see if this is the cause of the pain Pain in ri ght lower limb 736420575 M79.604 As above Pain of bi lateral knee joints 4373848197 50784 M25.561 Spasm 47727748 R25.2 Fibromyalgia 076475799 M 79.7 Will send to rheumatolo gy for further evaluation as some of this may be the cause of pain Intermitte nt palpitations 282480981 R00.2 Will call with resultsIf develops any CP, SOA, dizziness, or LOC go to the ER [id number] Nilson Mejía MD [address] [place] [address] 05/25/2022 15:13:36 05/25/2022 17:51:19 Rectal hemorrhage 82337614 K62.5 Patient is scheduled to COLONOSCOP Y and asked to keep that appointmen t. I also recommende d she should follow up with her surgeon. Get labs. I recommende d that she should also seek an immediate medical attention i.e. go to hospital emergency department (ER) right away should get bleeding from rectum again or any other complaints or symptoms Low back pain 530662505 M54.50 UA is normal. Get XRS of L-S spine. Can take acetaminop hen 500 mg every six hours as needed. See us back or go to ER right away should get worse or develop any new symptoms or complaints . Follow up with us in a week Vitamin D deficiency 347 38246 E55.9 Patient has HX of Vitamin D DEF- Will check labs and go from there Anxiety disorder 4085810 06 F41.9 Patient tells me she stopped [...] Follow up with us in 2 weeks. [id number] Nilson Mejía MD [address] [place] [address] 07/22/2022 08:30:39 07/22/2022 09:21:33 Insomnia 409903524 G47.00 Take Trazodone as prescribed . Will [...] a couple of weeks. Low back pain 322950926 M54.50 XRS of degenerati ve changes. Take cyclobenza mae as prescribed . Will refer for PT, to pain specialist . Get MRI of lumbar spine. See us back or go to an Er right away should get worse or develop any new symptoms or complaints . Follow up with us in 4 weeks. Pain of hip region 82351 002 M25.559 Get XRS of right hip. Can take acetaminop hen 500 mg every six hours as needed. Will refer to ortho. See us back or go to (ER) right away should get worse or develop any new symptoms or complaints . Pain in ri ght lower limb 591825979 M79.604 It would be right lateral hip pain radiating down into right lower extremity. Will get venous US to rule out DVT Pain in right foot 73973 49700 60307 M79.671 Get XRS. Can take acetaminop hen 500 mg every six hours as needed. See us back or go to an Er right away should get worse or develop any new symptoms or complaints Vitamin D deficiency 347 11236 E55.9 Take Vitamin D3 as prescribed . Get Vitamin D 25 (OH) level and adjust dose of Vitamin D3 if needed Recurrent herpes simplex labialis 111518480 B00.1 Take acyclovir as prescribed . Call us back or go to the Er right away should develop any symptoms or complaints Obesity 582930003 E66.9 Take a low fat diet, exercise and loose weight. Follow up in 3 months. Headache 51569717 R51.9 Get MRI of brain. Referred to neurologlyly levin. I recommende d that she should seek an immediate medical attention i.e. go to hospital emergency department (ER) right away should get headache again or any other complaints or symptoms. [id number] Nilson Mejía MD [address] [place] [address] 08/18/2022 09:15:10 08/18/2022 10:17:25 Headache 17143810 R51.9 Migraine. Take Imitrex as prescribed . She has been referred to neurologis t and asked to keep the appt with them once scheduled. See us back or go to (ER0 right away should get worse or develop any new symptoms or complaints . Follow up with family doctor in a month Magnetic r esonance imaging of brain abnormal 046960027 R93.0 Follow up with neurologis t Disorder o f nasal sinus 1565639 J34.9 MRI showed- 9 mm mucous retention [...] or complaints . Vitamin D deficiency 347 19993 E55.9 Take Vitamin D3 as prescribed . Get Vitamin D 25 (OH) level in 3 months and see us for same. [id number] Nalini Rodriguez APRN [address] [place] [address] 02/02/2023 14:55:49 02/02/2023 16:18:28 Insomnia 143397998 G47.00 Start Ambien - F/U 1 month; Discussed possible side effects of medication Skin lesion 23836704 L98 .9 F/U PRN if worsens or no improvemen t Long-term drug therapy 957644987 Z79.899 Frequent headache 201012 003 R51.0 Will call with results Anxiety 62878721 F41.9 Stop Paxil, start Duloxetine . F/U 1 month. Vitamin D deficiency 347 06309 E55.9 Fatigue 99157698 R53.83 [id number] Nalini Rodriguez APRN [address] [place] [address] 04/26/2023 09:28:51 04/26/2023 10:45:31 Depressive disorder 26399942 F32.A Uncontroll ed, switched medication - see plan below under anxiety diagnosis History of cardiac catheterization 8722536375 9100 Z98.890 Follows with Cardiology Coronary arteriosclerosis 13226276 I25.10 Continue to F/U with Cardiology as scheduled Body mass index 30+ - obesity 674085708 Z68.33 Start Contrave - discussed possible side effects of medication . Advised on diet/exerc ise. Obesity 938765298 E66.9 Edema of l ower extremity 843348886 R60.0 Will call with results Recurrent herpes simplex labialis 096281133 B00.1 Well-contr olled; Refills Low back pain 536598739 M54.50 Increased to 10mg Pain of bi lateral knee joints 7707274517 53742 M25.561 M25.562 Well-contr olled Anxiety 85328253 F41.9 Stop duloxetine , Start Effexor. F/U 1 month Insomnia 282436266 G47.0 0 Continue Ambien - F/U 3 months Long-term drug therapy 768592400 Z79.899 Vitamin D deficiency 347 53310 E55.9 Essential hypertension 57887993 I10 Well-contr olled [id number] Nalini Rodriguez APRN [address] [place] [address] 06/13/2023 13:30:22 06/13/2023 14:34:10 Body mass index 30+ - obesity 109794123 Z68.33 Start Adipex - discussed possible side effects of medication . Advised on referral to dietitian - patient refuses at this time. Advised on diet/exerc ise. F/U 1 month. Dysuria 37655075 R30.0 F/U PRN if symptoms worsen or no improvemen t Long-term drug therapy 993895826 Z79.899 Cobalamin deficiency 190 716758 E53.8 Return monthly for injections Prediabetes 415324276 R7 3.03 Patient to return when fasting Pain of ri ght hip joint 5834327645 44634 M25.551 Referred as requesting Obesity 369098513 E66.9 Pain of bi lateral knee joints 3582466968 10972 M25.561 M25.562 Well-contr olled Recurrent herpes simplex labialis 790037126 B00.1 Well-contr olled; Refills Health Concerns Section Related Observation LastModified by Organization Detai ls LastModified Time None Recorded Concern Status LastModified by Organization Details LastModified Time None Recorded Advance Directives Directive N: Payers Insurance Date Sequence Insurance Name Policy Number Policy Siu Covered Member ID Siu Member ID Guarantor Name 06/13/2023 1 [place] [id number] Armando Neri [id number] Armando [place] 06/13/2023 1 [place] [id number] S Armando Neri [id number] Armando Neri 10/14/2024 [place] [facility] [place]MEDICAID) Armando Neri [id number] Armando Glassmire 04/03/2019 1 *SELF PAY* Butch [place]mire 06/13/2023 [place] [facility] [place] Armando Rios Quanmire [id number] Armando Colemire 06/13/2023 1 [facility] [id number] Armando Rios Quanmire [id number] Armando Colemire 12/30/2020 1 *SELF PAY* Butch aguilar Colem[place] 06/13/2023 1 [employer] [place] (MEDICA[place] H[place]) Armando Rios [place] [id number] Armando [place] 01/03/2017 1 UNSPECIFIED REMIT PAYOR Armando [place]mire 10/13/2024 1 [employer] [place] ([place] Armando [place]mire [id number] Armando [place] 06/13/2023 [place] [facility] (MEDICAID) Armando Tomlin Quanmire [id number] Armando Quanmire Notes Date Note Type Note Provider Name [...] is going on at the present time. PAUL Esquivel - [facility] 07/22/2022 09:45:04 08/18/20 22 [...] migraine headache since last OV with me PAUL Esquivel [facility] 08/19/2022 02:33:36 02/03/20 23 text/htm l Armando is a 52 year old female who is a new patient to me referred by her outpatient clerk. She is here to follow-up on difficulty [...] that is mchugh. 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 She states she has had terrible pain of inner thigh. She states sometimes it causes her to have to drag her leg. She will have it happen during sleep and wake her up at times and sometimes if she has been driving for long period of time. She feels it may be nerve related. Nalini Rodriguez, CHIEF DEVELOPMENT OFFICER [address], [place], [address], [place] [facility] 02/02/2023 16:29:18 04/26/20 23 [...] Agreement on File: YES, signed 02/02/23 Nalini RodriguezDONALDO [address], [place], [address], [place] - [facility] 04/26/2023 10:49:31 06/13/20 text/htm christen Acosta is a 53 year [...] 06/13/23Controlled Substance Agreement on File: YES Nalini RodriguezDONALDO [address], [place], [address], [place] - [facility] 06/13/2023 14:31:52 OBGyn Episode No OBEpisode recorded.
--- OUTSIDE RECORDS SUMMARY | 2025-05-20 07:53 | XMS_ITS | Clinical Summary ---
Author Organization [facility] Address [address] [place] [address] Care Team Providers Care Social Studies Department Chair Name Role Phone Bety Greene MD Primary Care Provider [phone]- [phone] Family History Medical History Relation Name Comments [...] 3 - 19+ 3-dose series) 11/19/2021 10/22/2021 BYB-APAVB-10 Vaccine (1 - 2023- season) 2024 [facility]-Influenza Vaccine (#1) 07/08/202501/09, 08/13/2016, 08/08/2009 [facility]-DTaP,Tdap,and Td Vaccine s (2 [...] patient's age to complete this topic Insurance [place] [address] Care Teams Social Studies Department Chair Relationship Specialty Start Date End Date Bety Greene MD [address] [place] [address] PCP - General 03/20/21
--- OUTSIDE RECORDS SUMMARY | 2025-05-20 07:53 | XMS_ITS | Clinical Summary ---
Author Organization [facility] Address [address] [place] [address] Phone Care Team Providers Care Data Examination Clerk Name Role Phone Mike Llanes MD, Harold [...] on exertion 01/27/2024 Coronary artery disease involving [place] heart 0 01/27/2024 Chest pain, unspecified type 01/26/2024 Syncope 08/31/2022 Implantable loop recorder present 08/30/2022 Overview (08/31/2022): Mac Jot Dx ICM implanted 07/07/22 SVT (supraventricular tachycardia) 08/30/2022 Ureteral stricture, left 01/29/2020 Left ureteral calculus 01/23/2020 Overview (08/31/2022): Added automatically from request for surgery [id number] Renal colic on left side 01/23/2020 Overview (08/31/2022): Added automatically from request for surgery [id number] Elevated blood sugar 01/21/2020 Renal calculus, left [...] drink = 0.6 oz pur e alcohol) [facility] Utilities Answer Date Recorded In the past [...] Date Recorded PHQ-2 Total Score 0 01/27/2024 [facility] [place] of Occupat ional Health - Occupational Stress [...] money to get more. Never true 01/27/2024 [facility] IP Transportation Answer D ate Recorded In [...] 19+ 3-dose series) 11/19/2021 10/22/2021 COVID-19 Vaccine (1 - 2023-2 5 season) 2024 Influenza Vaccine (#1) 2025 8, 08/13/2016, 08/08/2009 DTaP/TDaP/Td (2 - Td or Tdap) 01/20/2026 01/21/2016 Meningococcal B Vaccine Aged Out No l onger eligible based on patient's age to complete this topic Advance Directives For more information, please contact: [phone] Documents on File Type Date Recorded Patient Manager Agricultural Expl anation ADVANCE DIRECTIVE 01/27/2024 11:07 AM earline ent took form to fill out later. * Full Code (Latest Code Status on File) Date Activated Date Inactivated Comments 01/27/2024 12:00 AM 01/27/2024 6:55 PM * Full Code Date Activated Date Inactivated Comments 01/27/2024 12:00 AM 01/27/2024 12:00 AM Care Teams Data Examination Clerk Relationship Specialty Start Date End Date Duong Mckeon MD [address] [place] [address] PCP - General Family Medicine 08/23/13
--- OUTSIDE RECORDS SUMMARY | 2025-05-20 07:53 | XMS_ITS | Data Portability ---
Author Organization [place] - [facility] ADMIN Address [address] [place] [address] Assessment Encounter Date Assessment Date Assessment LastModified by Organization Details LastModified Time 01/20/2024 01/20/2024 Reviewed Mac/[employer] loop recorder. Implant date July 07, 2022. Remaining battery capacity approximately > 10%. No atrial fibrillation. No tachycardia. No bradycardia. No pauses. No symptom episodes. No changes. [email or web address] general Not available 01/20/2024 13:34:57 02/24/2024 02/24/2024 Reviewed [employer] loop recorder. Implant date July 07, 2022. Remaining battery capacity approximately > 10%. No atrial fibrillation. No tachycardia. No bradycardia. No pauses. No symptom episodes. No alerts. No changes. Keep follow-up. magee general Not available 02/24/2024 13:40:19 04/13/2024 04/13/2024 Reviewed [employer] loop recorder. Implant date July 07, 2022. Remaining battery capacity approximately 10%. No atrial fibrillation. No tachycardia. No bradycardia. No pauses. No symptom episodes. No alerts. No changes. Keep follow-up. Not available 04/13/2024 13:26:53 05/18/2024 05/18/2024 Reviewed [employer] loop recorder. Implant date July 07, 2022. Remaining battery capacity approximately 10%. No atrial fibrillation. No tachycardia. No bradycardia. No pauses. No symptom episodes. No alerts. No changes. Keep follow-up. magee general Not available 05/18/2024 15:51:46 06/22/2024 06/22/2024 Reviewed [employer] loop recorder. Implant date July 07, 2022. Remaining battery capacity approximately 10%. No atrial fibrillation. No tachycardia. No bradycardia. No pauses. No symptom episodes. No alerts. No changes. Keep follow-up. Not available 06/22/2024 13:16:59 Plan of Treatment [...] Address Organization Details Recorded Time Cobalamin deficiency 973396795 Active Denise Bart null, [place] - [facility] [place] [facility] [place] 2 09:27:50 Vitamin D deficiency 79791337 Active Den[place] [facility] [place] [facility] [place] 2 09:28:05 Iron deficiency 44483008 Active Denise [place] [facility] [place] [facility] [place] 2 09:28:15 Depressive disorder 20554649 Active Den[place] [facility] [place] [facility] [place] 2 09:28:23 Insomnia 784616521 Active Den[place] [facility] [place] [facility] [place] 2 09:28:34 Restless legs 68842606 Active Den[place] [facility] [place] [facility] [place] 2 09:28:42 Coronary arterioscleros is 37449134 Active Denise [place] [facility] [place] [facility] [place] 2 09:28:53 Allergic rhinitis 70204816 Active Den[place] [facility] [place] [facility] [place] 2 09:29:02 Gastroesophage al reflux disease 095766838 Active Denise [place] [facility] [place] [facility] [place] 2 09:29:16 Irritable bowel syndrome 57384955 Active Den[place] [facility] [place] 2 09:29:26 Osteoarthritis of knee 720350416 Active Den[place] [facility] [place] [facility] [place] 2 09:29:44 Pain of multiple joints 74019527 Active Den[place] [facility] [place] [facility] [place] 2 09:29:56 Cervical disc disorder 152059682 Active Den[place] [facility] [place] [facility] [place] 2 09:30:08 Fibromyalgia 012349824 Active Denise [place] [facility] [place] [facility] [place] 2 09:30:17 Near syncope 732598266 Active 2022 Sonu Posada MD [address] [place] [address], [id number] [facility] [place] [facility] [place] & [place] 3 06:35:02 Notes:HTN LEENA CAD PALPITATIO NS TACHYCARDIA SOB CHEST PRESSURE HX OF GASTRIC BYPASS CHRONIC PAIN HX OF NARCOTIC ADDICTION Problem Notes None recorded. Procedures Surgical History Date Name Laterality Status Provider Name and Address Organization Details Recorded Time 006 Gastric bypass for obesity completed Maine Sawyer [place] - [facility] [place] [facility] [place] 08/03/2022 14:18:50 005 Hysterectomy/bladd er repair completed Maine QUARLES [facility] [place] 08/03/2022 14:19:06 fluoroscopy guided insertion of bioabsorbable arterial stent with contrast completed [place] QUARLES [facility] [place] 01/19/2023 19:58:37 fluoroscopic arthrography of shoulder completed Maine Sawyer [place] - [facility] [facility] [place] 01/19/2023 19:59:06 cholecystectomy completed [place] QUARLES [facility] [place] 01/19/2023 19:59:23 Appendectomy completed Maine Sawyervenkat QUARLES [facility] [place] 01/19/2023 19:59:35 Cardiac Catheterization completed Maine Sawyervenkat QUARLES [facility] [place] 01/19/2023 19:59:49 implantation of insertable loop recorder completed Maine Sawyer [place] [facility] 01/19/2023 20:00:31 Imaging Results None recorded. Procedure Notes None recorded. Medical Equipment None Reported. Allergies Allergen ID Allergen Name Allergen Category Reaction Reaction Severity Criticality Documentation Date Start Date Code Code System Note Provider Name and Address Organization Details Recorded Time 74990 Non-stero idal anti-infl ammatory agent (product) medicatio n Not available Not available Not available 08/03/2022 16065 005 SNOMED Maine Mcadamsmazin n john, PAUL [facility] 14:08:37 Medications Name Sig Start Date Stop [...] use any illicit or recreational drugs? No [email or web address] Information not available 08/03/2022 Do you or have you ever used any other forms of tobacco or nicotine? No [email or web address] Information not available 02/09/2023 What is your level of alcohol consumption? None [email or web address] Information not available 08/03/2022 Mental Status None recorded. Family History Relationship Description Onset Age of this Age Resolved Age Notes LastModified by Organization Details LastModified Time Father Heart disease [email or web address] Not available 14:16:55 Mother Heart disease [email or web address] Not available 14:16:55 Medical History Condition Response Coronary Artery Disease Y Obesity Y Vision or Eye Problems Y Arthritis Y Hyperlipidemia Y Back Problems Y GI Problems Y High Cholesterol Y Psychiatric/Mental Health Condition Y Arrhythmia Y Headaches Y Hypertension Y Gynecological HistoryNo gynecological history recorded. Obstetrics History GPAL:G 0 P 0 0 0 0 Immunizations Vaccine Type Date Status Note Provider Nam e and Address Organization Details Recorded Time Influenza, split virus, trivalent, preservative 9 completed Denise [place] null[place] [facility] [place] [facility] [place] 08/27/2022 09:30:57 Hep A, adult 1 completed Den[place] [facility] [place] 08/27/2022 09:30:57 Tdap 6 completed Den[place] [facility] [place] [facility] [place] 08/27/2022 09:30:57 Hep B, adult 1 completed Den[place] [facility] [place] [facility] [place] 08/27/2022 09:30:57 Influenza, split virus, quadrivalent, preservative 8 completed Den[place] [facility] [place] 08/27/2022 09:30:57 Influenza, split virus, quadrivalent, PF 6 completed Den[place] [facility] [facility] [place] 08/27/2022 09:30:57 Past Encounters Encounter ID Performer Location Encounter Start Date Encounter Closed Date Diagnosis/Indication Diagnosis SNOMED-CT Code Diagnosis ICD10 Code Diagnosis Note [id number] BECK STEINER NP, [place] [address] WH[place] [address] [place] [id number] 08/03/2022 13:36:31 08/03/2022 14:17:53 Coronary arteriosclerosis 67685107 I25.10 Essential hypertension 35756343 I10 Tachycardia 4127489 R00. 0 Paroxysmal supraventricular tachycardia 79813981 I47.1 Patient Education was printed, I have [...] and activity.. ...This note was dictated using Evomail software. If something is unclear, or does not make sense, please do not hesitate to contact our office at [phone] for clarificat ion. Obstructiv e sleep apnea of adult 7696296112 103 G47.33 Intermitte nt palpitations 310579037 R00.2 Sinus bradycardia 242974 05 R00.1 [id number] BECK STEINER NP, S [place] [address] WHITLEY [address] [place] [id number] 08/11/2022 13:29:07 08/11/2022 13:51:25 Paroxysmal supraventricular tachycardia 20290703 I47.1 Patient Education was printed, I have [...] and activity.. ...This note was dictated using Evomail software. If something is unclear, or does not make sense, please do not hesitate to contact our office at [phone] for clarificat ion. Coronary arteriosclerosis 39025161 I25.10 Essential hypertension 38762191 I10 Intermitte nt palpitations 971704173 R00.2 Tachycardia 5205150 R00. 0 Obstructiv e sleep apnea of adult 3272879268 103 G47.33 Sinus bradycardia 717551 05 R00.1 Insomnia 125676795 G47.0 0 [id number] [facility] [address] [place] [address] 9 08/13/2022 09:04:08 08/13/2022 10:02:52 Closed fracture of fifth metatarsal bone 51925191 S92.352A [id number] Davi Ortega MD [place] [address] 9 08/24/2022 09:07:22 08/24/2022 10:03:38 Closed fracture of fifth metatarsal bone 63786130 S92.352D Fracture o f phalanx of foot 30812307 S92.911A [id number] BECK STEINER NP, S [address] WHITLEY [address] [place] [address] 6 08/20/2022 11:57:25 08/20/2022 12:34:23 Cardiac implant in situ 081790681 Z95.818 [id number] BECK STEINER NP, S [address] WH[place] [address] [place] [address] 6 09/08/2022 13:36:38 09/08/2022 14:47:47 Cardiac implant in situ 863244306 Z95.818 Loop recorder Paroxysmal supraventricular tachycardia 67350485 I47.1 Coronary arteriosclerosis 52345008 I25.10 Essential hypertension 90592637 I10 Intermitte nt palpitations 016272749 R00.2 Tachycardia 1968339 R00. 0 Obstructiv e sleep apnea of adult 5851566756 103 G47.33 Sinus bradycardia 609737 05 R00.1 Insomnia 237110287 G47.0 0 follow-up with PCP. [id number] BECK STEINER NP, S [address] WH[place]LEY [address] [place] [address] 6 09/22/2022 15:44:28 09/22/2022 16:03:27 Cardiac implant in situ 478380430 Z95.818 Loop recorder Paroxysmal supraventricular tachycardia 14452632 I47.1 Coronary arteriosclerosis 79688247 I25.10 Essential hypertension 53271263 I10 Intermitte nt palpitations 449817645 R00.2 Tachycardia 7592575 R00. 0 Obstructiv e sleep apnea of adult 1365401642 103 G47.33 Sinus bradycardia 472092 05 R00.1 Insomnia 966017131 G47.0 0 follow-up with PCP. [id number] Davi Ortega MD [facility] [address] [id number] 09/28/2022 10:32:31 09/28/2022 11:36:14 Closed fracture of fifth metatarsal bone 89438355 S92.352D Fracture o f phalanx of foot 84006181 S92.911A Arthritis of right knee 0313138048 067754 M13.861 [id number] BECK STEINER, HARIS, S [place] [address] WHITLEY [address] [place], [place] [address] 6 10/05/2022 12:04:03 10/05/2022 12:04:23 Cardiac implant in situ 500557144 Z95.818 Loop recorder Paroxysmal supraventricular tachycardia 33126671 I47.1 Coronary arteriosclerosis 60595693 I25.10 Essential hypertension 69130352 I10 Intermitte nt palpitations 669028372 R00.2 Tachycardia 7600147 R00. 0 Obstructiv e sleep apnea of adult 7431178783 103 G47.33 Sinus bradycardia 101457 05 R00.1 Insomnia 470919158 G47.0 0 follow-up with PCP. [id number] MD RODOLFO Ocampo [address] WHITLEY [address] [place], [place] [address] 6 10/13/2022 10:57:48 10/13/2022 11:44:23 Essential hypertension 34912474 I10 Cardiac im plant in situ 011531952 Z95.818 Loop recorder Paroxysmal supraventricular tachycardia 65078625 I47.1 Coronary arteriosclerosis 89230451 I25.10 Intermitte nt palpitations 893738390 R00.2 Tachycardia 4758800 R00. 0 Obstructiv e sleep apnea of adult 7547200287 103 G47.33 Sinus bradycardia 423075 05 R00.1 Insomnia 480957045 G47.0 0 follow-up with PCP. History of bariatric surgical procedure 212485702 Z98.84 [id number] BECK STEINER NP, S [address] WH[place]LEY [address] [place] [address] 6 01/17/2023 16:41:11 01/17/2023 16:41:36 Essential hypertension 70594382 I10 Cardiac im plant in situ 989495927 Z95.818 Loop recorder Paroxysmal supraventricular tachycardia 03286492 I47.1 Coronary arteriosclerosis 58174704 I25.10 Intermitte nt palpitations 190931140 R00.2 Tachycardia 2086165 R00. 0 Obstructiv e sleep apnea of adult 6933913499 103 G47.33 Sinus bradycardia 389205 05 R00.1 Insomnia 965315578 G47.0 0 follow-up with PCP. History of bariatric surgical procedure 451518624 Z98.84 [id number] BECK STEINER NP, S [address] WHITLEY [address] [place] [address] 6 01/20/2023 14:17:50 01/20/2023 15:11:30 Essential hypertension 42116272 I10 Cardiac im plant in situ 482251707 Z95.818 Loop recorder Paroxysmal supraventricular tachycardia 90777214 I47.1 Coronary arteriosclerosis 71484722 I25.10 Intermitte nt palpitations 113720254 R00.2 Tachycardia 8118991 R00. 0 Obstructiv e sleep apnea of adult 4006513961 103 G47.33 Sinus bradycardia 526224 05 R00.1 Insomnia 809688309 G47.0 0 Follow-up with PCP. Headache 32491186 R51.9 Dizziness 774623433 R42 [id number] BECK STEINER NP, S [address] WHITLEY [address] [place] [address] 6 03/21/2023 14:47:38 03/21/2023 15:39:12 Essential hypertension 06473516 I10 Cardiac im plant in situ 922885294 Z95.818 Loop recorder Paroxysmal supraventricular tachycardia 50832663 I47.1 Coronary arteriosclerosis 95057284 I25.10 Intermitte nt palpitations 544687460 R00.2 Tachycardia 0652421 R00. 0 Obstructiv e sleep apnea of adult 0415361540 103 G47.33 Sinus bradycardia 295588 05 R00.1 Insomnia 731149335 G47.0 0 Follow-up with PCP. Headache 64903350 R51.9 Dizziness 740723778 R42 Angina pectoris 28985362 0 I20.9 Dyspnea on exertion 6084 5006 R06.09 [id number] BECK STEINER NP, S [address] WHITLEY [address] [place] [id number] 6 11/25/2023 11:02:37 11/25/2023 11:03:39 Near syncope 768100757 R55 Implantabl e loop recorder in situ 2604517837 Z95.818 [id number] BECK STEINER NP, S [address] WH[place] [address] [place] [id number] 6 12/01/2023 10:30:39 12/01/2023 11:35:35 Essential hypertension 41903217 I10 Cardiac im plant in situ 821512105 Z95.818 Loop recorder Paroxysmal supraventricular tachycardia 64981797 I47.10 Coronary arteriosclerosis 25164754 I25.10 Intermitte nt palpitations 841429508 R00.2 Tachycardia 5448086 R00. 0 Obstructiv e sleep apnea of adult 4655365678 103 G47.33 Sinus bradycardia 141432 05 R00.1 Insomnia 466367809 G47.0 0 Headache 80565145 R51.9 Dizziness 278405278 R42 Angina pectoris 52971048 0 I20.9 Dyspnea on exertion 6084 5006 R06.09 [id number] BECK STEINER NP, S [place] [address] WH[place] [address] [place] [address] 6 01/20/2024 12:11:25 01/20/2024 12:12:05 Near syncope 211168403 R55 Implantabl e loop recorder in situ 5829502818 Z95.483 [id number] BECK STEINER NP S [place] [address] ANGI [address] [place] [id number] 6 02/24/2024 12:04:33 02/24/2024 12:04:53 Near syncope 887274171 R55 Implantabl e loop recorder in situ 3993570179 Z95.068 [id number] BECK STEINER NP, S [address] [place] [address] 6 04/13/2024 12:41:55 04/13/2024 12:42:30 Near syncope 507751281 R55 Implantabl e loop recorder in situ 3790215078 Z95.503 [id number] BECK STEINER NP, S [address] [place] [address] 6 05/18/2024 13:56:34 05/18/2024 13:57:23 Near syncope 049837871 R55 Implantabl e loop recorder in situ 4148875086 Z95.785 [id number] BECK STEINER NP, S [address] [place] [address] 6 06/22/2024 12:24:24 06/22/2024 12:25:13 Near syncope 681398708 R55 Implantabl e loop recorder in situ 1911342361 Z95.818 Health Concerns Section Related Observation LastModified by Organization Detai ls LastModified Time None Recorded Concern Status LastModified by Organization Details LastModified Time None Recorded Advance Directives Directive None Recorded Payers Insurance Date Sequence Insurance Name Policy Number Policy Siu Covered Member ID Siu Member ID Guarantor Name 12/01/2023 1 [place] [id number] S Karla L Colemire [id number] Karla Colemire 02/27/2024 SLIDING FEE SCHEDULE - DISCOUNT Karla Colemire 12/01/2023 1 [place] [id number] Karla Colemire [id number] Karla Colemire 02/27/2024 1 [employer] [place] Karla Colemire [id number] Karla Colemire 12/01/2023 1 [place] [id number] Karla Neri [id number] Karla Neri 12/01/2023 2 [facility] Karla Neri [id number] Karla Neri 12/01/2023 2 [place]/TRADITIO NAL Karla Neri [id number] Karla Neri OBGyn Episode No OBEpisode recorded.
--- OUTSIDE RECORDS SUMMARY | 2025-05-20 07:53 | XMS_ITS | Encounter Summary ---
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
--- OUTSIDE RECORDS SUMMARY | 2025-05-20 07:53 | XMS_ITS | Data Portability ---
Author Organization [place] - [place] - [place] [facility] Address [address] [place] [address] Care Team Providers Care Cot Assembler Name Role Phone MARTINEZSONNYJEFF Referring Provider SOURAV DUKE Lead Care Manager Assessment Encounter Date Assessment Date Assessment LastModified [...] TSH, serum or plasma 2018 K[facility], [address], [address], [place], [address], 9 01:35:20 Referral None recorded. Procedures None recorded. Surgeries None recorded. Imaging pharmacolo gic stress test 2018 [email or web address] Not available 9 09:12:54 event monitor 2018 KHANG Not available 15:33:04 US, echocardio gram 2018 [email or web address] Not available 9 09:12:54 Medication Orders nitroglyce rin 0.4 mg sublingual tablet 2018 INTERFACE [id number], [address] [place], [place], [id number], 9 18:06:44 Patient TargetsNo targets recorded. Patient Instructions Encounter Date Encounter Id Patient Instructions Last Modified By Organization Details Last Modified Time 07/19/2019 [id number] chest pain: care instructions [email or web address] Not available 07/19/2019 18:06:41 palpitations: care instructions [email or web address] Not available 07/19/2019 18:06:41 esophageal dilation: before your procedure [email or web address] Not available 07/19/2019 18:06:41 Reason for Referral None Reported. Results Created Date Observation Date Name Description Value Unit Range Abnormal Flag Note LastModifiedBy Organization Detail LastModifiedTime 07/19/2007/20/2019 TSH, serum or plasm a TSH 0.53 uIU/m L 0.35-5 .50 Not Available [facility] (Lab) [address] [place], [address], 07/20/2019 01:35:20 07/06/20 19 07/04/2019 matteo lopez am No observ ation record ed. BARCODE Not Available 2018 16:16:38 07/19/20 19 07/13/2019 XR, chest No observ ation record ed. BARCODE Not Available 2018 14:21:50 07/20/20 pharm acolo gic stres s test No observ ation record ed. [email or web address] Not Available 2018 16:49:55 07/20/20 19 US, echoc ardio gram No observ ation record ed. Not Available 2018 17:41:47 07/24/20 19 07/24/2019 elect suresh diogr am No observ ation record ed. [email or web address] Not Available 2018 09:40:08 10/29/20 19 08/28/2019 event monit or No observ ation record ed. BARCODE Not Available 2018 15:33:04 Result Notes None recorded. Problems No Known Problems Procedures Surgical History Date Name Laterality Status Provider Name and Address Organization Details Recorded Time Appendectomy completed Carson Dover [place] 07/19/2019 17:18:27 Section completed Carson [place] 07/19/2019 17:18:27 Hysterectomy completed Carson Dover [place] 07/19/2019 17:18:27 Gallbladder Surgery completed Carosn MARTIN - [place] 07/19/2019 17:18:27 Hernia Repair completed Carson Dover [place] 07/19/2019 17:18:27 Gastric bypass for obesity completed Carson [place] [facility] 07/19/2019 17:21:02 Imaging Results None recorded. Procedure Notes None recorded. Medical Equipment None Reported. Allergies Allergen ID Allergen Name Allergen Category Reaction Reaction Severity Criticality Documentation Date Start Date Code Code System Note Provider Name and Address Organization Details Recorded Time 373281 Non-stero idal anti-infl ammatory agent (product) medicatio n Not available Not available Not available 07/19/2019 59307 005 SNOMED Carson lopez [place] 9 17:16:10 Medications Name Sig Start Date [...] in Arterial blood by Pulse oximetry Systolic And Diastolic Provider Name and Address Organization Details Last Updated DateTime 9 163.83 cm 29.1 kg/m2 98041.8 9 g 76 /min 98 % 98 % 102/76 mm[Hg] Carson Dover [facility] 9 17:19:55 Social History Question Answer Notes LastModified by Sulmaq Details LastModified Time Tobacco Smoking Status Never Smoker Carson Dover [facility] 07/19/2019 17:18:25 Do You Have An [...] Functional Status Question Answer Note LastModified by Sulmaq Details LastModified Time What is your level [...] SNOMED-CT Code Diagnosis ICD10 Code Diagnosis Note [id number] Sourav Duke MD [facility], [address] [place] [address] 07/19/2019 16:56:48 07/23/2019 09:12:54 Chest pain 55754128 R07.2 Dyspnea on exertion 6084 5006 R06.09 Palpitations 72658077 R0 0.2 Family his tory of premature coronary heart disease 369167094 Z82.49 History of bariatric surgical procedure 444479566 Z98.84 Stricture of esophagus 08835885 K22.2 Health Concerns Section Related Observation LastModified by Organization Detai ls LastModified Time None Recorded Concern Status LastModified by Organization Details LastModified Time None Recorded Advance Directives Directive N: Payers Insurance Date Sequence Insurance Name Policy Number Policy Siu Covered Member ID Siu Member ID Guarantor Name 07/19/2019 1 [facility] Karla Neri [id number] Karla Neri Notes Date Note Type Note [...] pressure look fine today. Sourav Duke MD [address] [place] [address], [place], [address], [place] 07/19/2019 18:07:27 OBGyn Episode No OBEpisode recorded.
--- NOTE | 2025-05-20 07:55 | CT_ITS ---
FINAL REPORT TECHNIQUE: Thin section noncontrast axial CT with sagittal reconstructions was obtained before and after the administration of IV contrast. This study was performed with techniques to keep radiation doses as low as reasonably achievable, (ALARA). Individualized dose reduction techniques using automated exposure control or adjustment of mA and/or kV according to the patient's size were employed. CLINICAL HISTORY: pain x many years, no known trauma, pt states her back gets caught & drops her to her knees COMPARISON: None FINDINGS: CT LUMBAR SPINE There is a hemangioma in L2 vertebral body. The remaining vertebral bodies are unremarkable. There is normal height and alignment. No evidence of bony canal stenosis. There is moderate diffuse degenerative disc disease which is most pronounced at L3-4 and L4-5 with moderate canal stenosis and neural foraminal narrowing. No abnormal enhancement identified. IMPRESSION: No evidence of fracture. Degenerative canal stenosis most pronounced at L3-4 and L4-5. No obvious abnormal enhancement. Reviewed, Interpreted and Dictated by Irving Zhu MD Transcribed by Katherine Barber Authenticated and [facility]
[2025-05-20 08:32] LABS: Blood Urea Nitrogen 19 mg/dl (7-17); Creatinine,Serum 0.80 mg/dl (0.52-1.04); Estimated Glomerular Filt Rate 74 ml/min (>60); GFR (African American) 90 ML/MIN (>60)
[2025-05-20] MEDS: IOPAMIDOL-370 (76%);100ML BOTTLE 75 ML IV (08:54)
[2025-05-20] MEDS: SODIUM CHLORIDE 0.9% 10ML SYR (RAD ONLY) 10 ML IV (08:54)
== END 2025-05-20 23:59 | disposition home or self-care (01) ==
LOC: RAD 07:51
PROVIDERS: PCP Family Medicine; Visit Provider Orthopaedic Surgery
DX: M48.061 Spinal stenosis, lumbar region without neurogenic claudication (principal)
CPT/HCPCS: 36415; 72133; 82565; 84520; Q9967

== ENCOUNTER 2025-05-20 09:08 | Outpatient (POV) | payer MEDICAID, SELFPAY ==
--- OUTSIDE RECORDS SUMMARY | 2025-05-20 09:10 | XMS_ITS | Encounter Summary ---
Author Organization Healthcare Address [address] [id number] Care Team Providers Care Paper Products Inspector Name Role Phone Bety Greene MD Primary Care Provider +1- [phone] Encounter Details Date Type Department Care Team (Late st Contact Info) Description 08/31/2021 [facility] [address] [place] [address] Nilson Mejía MD [address] [place] [address] [place] [address] Positive OLIVA (antinuclear antibody) (Primary Dx) Social [...] findings documented in this encounter Care Teams Paper Products Inspector Relationship Specialty Start Date End Date Bety Greene MD [address] [place] [address] PCP - General 03/20/21 documented as of this encounter
--- OUTSIDE RECORDS SUMMARY | 2025-05-20 09:10 | XMS_ITS | Encounter Summary ---
Author Organization Healthcare Address [address] [place] [address] Care Team Providers Care Probate Clerk Name Role Phone Bety Greene MD Primary Care Provider +1- [phone] Encounter Details Date Type Department Care Team (Latest Contact Info) Description 09/17/2021 [facility] Community Practice [address] [place] [phone] Nilson Mejía MD [address] [place] [address] [place] [address] Nonintractable headache, unspecified chronicity pattern, unspecified headache [...] Primary documented in this encounter Care Teams Probate Clerk Relationship Specialty Start Date End Date Bety Greene MD [address] [place] [address] PCP - General 03/20/21 documented as of this encounter
--- OUTSIDE RECORDS SUMMARY | 2025-05-20 09:10 | XMS_ITS | Encounter Summary ---
Author Organization [facility] Address [address] [place] [address] Care Team Providers Care Family Court Counsellor Name Role Phone Bety Greene MD Primary Care Provider +1- [phone] Reason for Referral * Consultation (Routine) - Authorized Specialty Diagnoses / Procedures Referred By Allison levin Referred To Contact Pain Medicine Diagnoses Lumbar radiculopathy Jasen Torres DO [address] [place] [address] [place] [address] Phone: tel: fax: [facility] Inter[facility] Medicine [address] [place] [phone] Phone: tel: fax: Referral ID Status Reason Start Date Expiration Date Visits Requested Visits Authorized [id number] Authorized Specialty Services Required 08/07/2024 02/06/2026 1 1 Encounter Details Date Type Department Care Team (Latest Contact Info) Description 08/07/2024 [facility] [address] [place] [address] Jasen Torres DO [address] [place] [address] Lumbar radiculopathy (Primary Dx) Social History Tobacco [...] unspecified documented in this encounter Care Teams Family Court Counsellor Relationship Specialty Start Date End Date Bety Greene MD [address] [place] [address] PCP - General 03/20/21 documented as of this encounter
--- OUTSIDE RECORDS SUMMARY | 2025-05-20 09:12 | XMS_ITS | Clinical Summary ---
Author Organization [facility] Address [address] [place] [address] Phone Care Team Providers Care Extractor Plant Operator Name Role Phone Mike Llanes MD, Harold [...] on exertion 01/27/2024 Coronary artery disease involving [place] heart 0 01/27/2024 Chest pain, unspecified type 01/26/2024 Syncope 08/31/2022 Implantable loop recorder present 08/30/2022 Overview (08/31/2022): Mac Jot Dx ICM implanted 07/07/22 SVT (supraventricular tachycardia) 08/30/2022 Ureteral stricture, left 01/29/2020 Left ureteral calculus 01/23/2020 Overview (08/31/2022): Added automatically from request for surgery [id number] Renal colic on left side 01/23/2020 Overview (08/31/2022): Added automatically from request for surgery [id number] Elevated blood sugar 01/21/2020 Renal calculus, left [...] drink = 0.6 oz pur e alcohol) [facility] Utilities Answer Date Recorded In the past [...] Date Recorded PHQ-2 Total Score 0 01/27/2024 [facility] [place] [facility] - Occupational Stress [...] money to get more. Never true 01/27/2024 [facility] HRSN [facility] IP Transportation Answer D ate Recorded In [...] Advance Directives For more information, please contact: [phone] Documents on File Type Date Recorded Patient Button Tufter Expl anation ADVANCE DIRECTIVE 01/27/2024 11:07 AM earline ent took form to fill out later. * Full Code (Latest Code Status on File) Date Activated Date Inactivated Comments 01/27/2024 12:00 AM 01/27/2024 6:55 PM * Full Code Date Activated Date Inactivated Comments 01/27/2024 12:00 AM 01/27/2024 12:00 AM Care Teams Extractor Plant Operator Relationship Specialty Start Date End Date Duong Mckeon MD [address] [place] [id number] PCP - General Family Medicine 08/23/13
--- OUTSIDE RECORDS SUMMARY | 2025-05-20 09:12 | XMS_ITS | Clinical Summary ---
Author Organization [facility] Address [address] [place] [address] Care Team Providers Care Academic Director Name Role Phone Bety Greene MD Primary Care Provider +1- [phone] Family History Medical History Relation Name Comments [...] 3 - 19+ 3-dose series) 11/19/2021 10/22/2021 [id number] Vaccine (1 - 2023- season) 2024 UKY-Influenza [...] to complete this topic Insurance [employer] Care Teams Academic Director Relationship Specialty Start Date End Date Bety Greene MD [address] [place] [address] PCP - General 03/20/21
--- OUTSIDE RECORDS SUMMARY | 2025-05-20 09:12 | XMS_ITS | Encounter Summary ---
Author Organization Healthcare Address [address] [id number] Care Team Providers Care Traditional Maori Health Practitioner Name Role Phone Bety Greene MD Primary Care Provider +1- [phone] Encounter Details Date Type Department Care Team (Late st Contact Info) Description 09/28/2024 [facility] Community Practice [address] [place] [address] [place], PRODUCTION SPECIALIST [address] [place] [address] Social History Tobacco Use Types Packs/Day Years [...] on filedocumented in this encounter Care Teams Traditional Maori Health Practitioner Relationship Specialty Start Date End Date Bety Greene MD [address] [place] [address] PCP - General 03/20/21 documented as of this encounter
--- NOTE | 2025-05-20 09:31 | EXP.PAIN.SOA ---
[facility] Disclaimer: The information contained in this section may have been updated after the patient was seen, as this information can be updated by other users. Medical History (Updated 05/20/25 @ 09:34 by Patt Torres APRN) Dizziness Abnormal ECG Edema Fatigue Equivocal stress test Chest pain Snoring SOBOE (shortness of breath on exertion) History of kidney stones Closed fracture of right distal fibula Pain of right anterior lower extremity Afib Hypertension Bipolar 1 disorder Depression Anxiety PTSD (post-traumatic stress disorder) Surgical History Hx of repair of left rotator cuff History of bunionectomy Hx of hernia repair Hx of carpal tunnel repair Hx of total hysterectomy Hx of cholecystectomy Hx of appendectomy H/O gastric bypass Family History Other COPD (chronic obstructive pulmonary disease) Cancer Coronary artery disease Diabetes FHx: mental illness Heart attack Hypertension Thyroid disorder Social History Smoking Status: Never smoker alcohol intake: current alcohol intake frequency: holidays/special occasions only current occupational status: unemployed Travel in the last 8 weeks?: None PM Subjective & Objective Subjective Subjective:: Patient is a pleasant 54-year-old female who presents today for worsening right hip pain. Patient rates it a 9 out of 10. She denies any new falls or injuries. Patient states this pain is most prevalent when she is in certain positions such as lying down. She also states that stairs really seem to aggravate her pain. Patient does state the pain is interfering with her ability perform activities of daily living such as cooking and cleaning. At our last visit we did send in a 2-week dose of methocarbamol 500 mg 3 times daily as needed. Patient states that she had no side effects but really did not feel like this made much difference. Patient is interested in any options we may be able to provide. Patient states the pain along the right side is just miserable. Patient does also state that she has chronic right knee pain and that they have had to drain fluid off this joint in the past. Patient is asking whether or not we do anything for her knees. Her Rivera has been reviewed and is appropriate. Review of Systems: General: No recent weight changes, no fever, no sleep disturbances Respiratory: No cough, no shortness of air, no recurring pulmonary infections Cardiovascular/peripheral vascular: No chest pain, no palpitations, no edema, no shortness of breath Gastrointestinal: No new onset incontinence, normal bowel movements reported Genitourinary: No new onset incontinence Musculoskeletal: Right hip pain, right knee pain Psychiatric: [Normal mood/affect] Neurological: [Denies weakness in extremities], [denies balance issues] Pain at rest (0-10 scale): 9 Objective Objective:: Physical Exam: General: Alert and oriented x3, no acute distress, pleasant and cooperative Lungs: Respirations even and unlabored, symmetrical chest expansion Eyes: PERRL Musculoskeletal: Flexion and extension of lumbar [spine] somewhat guarded secondary to pain, [antalgic gait noted] point tenderness along right SI with positive right Maya's, Sima's, Gaenslen's, compression and distraction exam Neurological: Speech clear, no gross sensory deficit Has patient had previous pain injection?: No Conservative treatment options previously tried: Home exercise plan Length of treatment: Longer than 12 weeks Meds Home Medications and Allergies Home Medications ?Medication ?Instructions ?Recorded ?Confirmed ?Type cariprazine 1.5 mg capsule 1.5 mg PO DAILY #90 caps 01/28/25 04/30/25 Rx (Vraylar) hydroxyzine HCl 50 mg tablet 50 mg PO HS PRN sleep #30 tabs 02/05/25 04/30/25 Rx ondansetron HCl 4 mg tablet 4 mg PO Q8H PRN nausea and 02/26/25 04/30/25 Rx vomiting #20 tabs zolpidem 5 mg tablet 5 mg PO HS sleep #30 tabs 03/19/25 04/30/25 Rx baclofen 5 mg tablet 5 mg PO TID #90 tabs 03/20/25 04/30/25 Rx albuterol sulfate 90 mcg/actuation 2 puff inhalation Q4-6H PRN 04/03/25 04/30/25 Rx aerosol inhaler shortness of breath or wheezing #8.5 grams cholecalciferol (vitamin D3) 125 125 mcg PO DAILY #30 tabs 04/03/25 04/30/25 Rx mcg (5,000 unit) tablet cyanocobalamin (vitamin B-12) 1,000 mcg PO DAILY #30 tabs 04/03/25 04/30/25 Rx 1,000 mcg tablet metoprolol succinate 25 mg 25 mg PO DAILY HTN #30 tabs 04/30/25 Rx tablet,extended release 24 hr acyclovir 400 mg tablet See Rx Instructions .Route 05/16/25 Rx .COMPLEX #60 tabs hyoscyamine sulfate 0.125 mg tablet See Rx Instructions .Route 05/16/25 Rx .COMPLEX #30 tabs methocarbamol 500 mg tablet See Rx Instructions .Route 05/16/25 Rx .COMPLEX #90 tabs New Prescriptions to Start Prescriptions: Allergies Allergy/AdvReac Type Severity Reaction Status Date / Time NSAIDS (Non-Steroidal AdvReac Unknown Verified 04/04/25 13:08 Anti-Inflamma Assessment and Plan *Assessment and plan (1) Sacroiliitis: Status: Acute Category: Medical Code(s): M46.1 - Sacroiliitis, not elsewhere classified (2) Chronic pain of right knee: Status: Acute Category: Medical Code(s): M25.561 - Pain in right knee; G89.29 - Other chronic pain Plan Patient is experiencing worsening pain along the low back and right hip. They did have limited range of motion of the lumbar spine along with point tenderness along right SI joints and a positive right Maya's, Sima's, Gaenslen's, compression and distraction exam. I did discuss with the patient that I do believe they would benefit from right SI injections. Risk and benefits were discussed with the patient and they would like to proceed forward with this option. Patient has tried and failed conservative therapy. Patient has been actively doing conservative treatment including oral medication, heat and ice, topicals, at home exercising and stretching for longer than 12 weeks. Patient is having to adjust their activity based off the increased pain resulting in activity modification. I do believe the patient would benefit from SI injection. Patient has had chronic sacroiliitis in the past and has had chronic low back pain for longer than 6 months. Patient however has not had any SI injections. This will be a diagnostic injection with less than 1 mL of solution to be injected. If the patient does get significant relief we will plan on repeating this injection with the plan to possibly proceed forward with an SI fusion at a later date. Patient agrees with this plan of care. I will also send in a 5-day dose of prednisone 20 mg twice daily. Patient was counseled to try 2 tablets of the methocarbamol and to let us know if that does help. Patient was counseled to call her office if it does not provide good relief and I can try a different muscle relaxer. We did also discuss in future we can see about doing a right intra-articular knee injection. We will follow-up with this after her hip injection. Patient will be scheduled for right SI injections under fluoroscopy. Patient has been instructed to contact the clinic with any concerns before the next appointment. Dr. Parekh has reviewed this note and agrees with this plan of care. This note was dictated using voice recognition software and make contain errors or omissions. All injections are used with Lidocaine or Bupivacaine and dexamethasone unless diagnostic in which no steroids were injected.
[2025-05-20 09:35] VITALS: BP 124/90; PULSE 62; RESP 14; O2SAT 99; BMI 37.1
== END 2025-05-20 23:59 | disposition home or self-care (01) ==
PROVIDERS: PCP Family Medicine; Visit Provider Nurse Practitioner Family
DX: M46.1 Sacroiliitis, not elsewhere classified (principal); M25.561 Pain in right knee; G89.29 Other chronic pain; Z79.899 Other long term (current) drug therapy
CPT/HCPCS: 99212; G0463